=== PATIENT | female | born 1950 | race Caucasian/White ===

== ENCOUNTER 2016-10-08 08:29 | Day surgery (SDC) | payer MEDICARE, OTHER ==
[2016-10-08] MEDS ORDERED: LACTATED RINGERS 1,000 ML IV ONE (08:39)
[2016-10-08] MEDS ORDERED: fentaNYL 250 MCG/5 ML VIAL IVP ONE (10:32)
[2016-10-08] MEDS ORDERED: MIDAZOLAM 2 MG/2 ML VIAL IVP ONE (10:32)
== END 2016-10-08 08:30 | disposition home or self-care (01) ==
PROC: 0DJD8ZZ Inspection of Lower Intestinal Tract, Via Natural or Artificial Opening Endoscopic (ICD-10-PCS; principal; 2016-10-08 09:45)
DX: R10.31 Right lower quadrant pain (principal); K57.30 Diverticulosis of large intestine without perforation or abscess without bleeding; K64.8 Other hemorrhoids; Z88.2 Allergy status to sulfonamides; Z88.1 Allergy status to other antibiotic agents; Z79.82 Long term (current) use of aspirin; Z82.49 Family history of ischemic heart disease and other diseases of the circulatory system; Z87.891 Personal history of nicotine dependence; F32.9 Major depressive disorder, single episode, unspecified
CPT/HCPCS: 45378; J3010; J7120

== ENCOUNTER 2017-11-24 11:10 | Outpatient (CLI) | payer MEDICARE, OTHER | END 2017-11-24 11:11 | disposition home or self-care (01) | LOC: LAB.R 11:10 | PROVIDERS: ATTEND Physician Assistant Medical | DX: N30.00 Acute cystitis without hematuria (principal) | CPT/HCPCS: 87086 ==

== ENCOUNTER 2018-12-15 08:00 | Outpatient (CLI) | payer MEDICARE, OTHER | END 2018-12-15 23:59 | disposition home or self-care (01) | LOC: LAB.WCP 08:00 | PROVIDERS: ATTEND Physician Assistant Medical | DX: R31.9 Hematuria, unspecified (principal) | CPT/HCPCS: 87086 ==

== ENCOUNTER 2019-02-08 08:00 | Outpatient (CLI) | payer MEDICARE, OTHER ==
[2019-02-08 12:56] LABS: BASOPHILS # (AUTO) 0.1 10^3/uL (0.0-0.1); BASOPHILS % (AUTO) 0.7 %; EOSINOPHILS # (AUTO) 0.1 10^3/uL (0.0-0.7); EOSINOPHILS % (AUTO) 1.7 %; HGB - HEMOGLOBIN 12.8 g/dL (12.0-16.0); LYMPHOCYTES # (AUTO) 2.4 10^3/uL (1.5-3.5); LYMPHOCYTES % (AUTO) 30.7 %; MEAN CORPUSCULAR HEMOGLOBIN 29.9 pg (27.0-31.0); MEAN CORPUSCULAR HGB CONC 33.3 g/dL (32.0-36.0); MEAN CORPUSCULAR VOLUME 89.9 fL (81.0-99.0); MEAN PLATELET VOLUME 7.7 fL (7.9-10.8); MONOCYTES # (AUTO) 0.9 10^3/uL (0.0-1.0); MONOCYTES % (AUTO) 10.8 %; NEUTROPHILS # (AUTO) 4.4 10^3/uL (1.5-6.6); NEUTROPHILS % (AUTO) 56.1 %; PLT - PLATELET COUNT 304 10^3/uL (130-450); RED BLOOD COUNT 4.26 10^6/uL (4.20-5.40); RED CELL DISTRIBUTION WIDTH 14.2 % (12.0-15.0); WHITE BLOOD COUNT 7.9 x10^3/uL (4.8-10.8)
[2019-02-08 13:18] LABS: ALBUMIN 3.9 g/dL (3.2-5.5); ALBUMIN/GLOBULIN RATIO 1.4 (1.0-2.2); ALKALINE PHOSPHATASE 36 IU/L (42-121); ALT ALANINE AMINOTRANSFERASE 14 IU/L (10-60); AST ASPARTATE AMINOTRANSFERASE 17 IU/L (10-42); BILIRUBIN,TOTAL 0.5 mg/dL (0.2-1.0); BUN - BLOOD UREA NITROGEN 19 mg/dL (6-20); CALCIUM 9.8 mg/dL (8.5-10.3); CARBON DIOXIDE - CO2 29 mmol/L (21-32); CHLORIDE 101 mmol/L (101-111); CREATININE 0.7 mg/dL (0.4-1.0); GFR - MDRD 83 (>89); GLUCOSE 94 mg/dL (70-100); SODIUM 135 mmol/L (135-145); TOTAL PROTEIN 6.6 g/dL (6.7-8.2); VALPROIC ACID (DEPAKOTE) 52.1 ug/mL
== END 2019-02-08 08:01 | disposition home or self-care (01) ==
LOC: LAB.WCP 08:00
PROVIDERS: ATTEND Physician Assistant Medical
DX: K21.9 Gastro-esophageal reflux disease without esophagitis (principal); F32.3 Major depressive disorder, single episode, severe with psychotic features; E03.9 Hypothyroidism, unspecified
CPT/HCPCS: 36415; 80053; 80164; 84443; 85025

== ENCOUNTER 2019-07-12 08:00 | Outpatient (CLI) | payer MEDICARE, OTHER | END 2019-07-12 23:59 | disposition home or self-care (01) | LOC: LAB.R 08:00 | PROVIDERS: ATTEND Physician Assistant | DX: R35.0 Frequency of micturition (principal) | CPT/HCPCS: 81002; 87086; 87181 ==

== ENCOUNTER 2019-07-22 08:00 | Outpatient (CLI) | payer MEDICARE, OTHER ==
[2019-07-22 12:07] LABS: BILIRUBIN,URINE NEGATIVE (NEGATIVE); GLUCOSE, URINE (UA) NEGATIVE (NEGATIVE); KETONES,URINE (UA) TRACE mg/dL (NEGATIVE); LEUKOCYTE ESTERASE, URINE NEGATIVE (NEGATIVE); NITRITE,URINE NEGATIVE (NEGATIVE); OCCULT BLOOD,URINE SMALL (NEGATIVE); PROTEIN,URINE NEGATIVE (NEGATIVE); UROBILINOGEN,URINE 0.2 (NORMAL) E.U./dL (NORMAL)
[2019-07-22 12:09] LABS: CLARITY,URINE CLEAR (CLEAR)
[2019-07-22 12:22] LABS: BACTERIA,URINE Rare /HPF (None Seen); MUCUS,URINE Few Strands; RBC,URINE 0-5 /HPF (0-5); SQUAMOUS EPITHELIAL CELL,UR FEW Squamous (<= Few)
== END 2019-07-22 08:01 | disposition home or self-care (01) ==
LOC: LAB.WCP 08:00
PROVIDERS: ATTEND Physician Assistant Medical
DX: R35.0 Frequency of micturition (principal)
CPT/HCPCS: 81001; 81003; 87086

== ENCOUNTER 2019-08-12 08:37 | Outpatient (CLI) | payer MEDICARE, OTHER ==
--- NOTE | 2019-08-12 15:09 | Ultrasound Report ---
Reason: ABD PAIN, RUQ Procedure Date: 08/12/2019 Accession Number: [id number] / [id number] Procedure: US - Abdomen Limited CPT Code: Addended Final Report FULL RESULT: EXAM: ABDOMEN ULTRASOUND LIMITED, RUQ EXAM DATE: 08/12/2019 09:47 AM. CLINICAL HISTORY: ABD PAIN, RUQ. COMPARISON: None. TECHNIQUE: Real-time scanning was performed with static images obtained. FINDINGS: Liver: Coarse in echotexture. Surface nodularity. 11.5 cm in length. No focal intrahepatic mass. Main portal vein flow: Hepatopetal. Gallbladder: Normal. No stones, wall thickening, or sonographic Rodriguez's sign. Biliary System: CBD measures 4-5 mm. No intrahepatic or extrahepatic ductal dilatation. Right kidney: 8.7 cm in length. No hydronephrosis, calculus, or mass. Other: None. IMPRESSION: 1. No evidence of acute cholecystitis or cholelithiasis. 2. Heterogeneous echogenicity and coarsened echotexture of the liver with nodular surface consistent with underlying liver disease. RADIA ADDENDUM: 08/17/19 16:03 The appearance of the liver is consistent with liver disease secondary to cirrhosis.
== END 2019-08-12 08:38 | disposition home or self-care (01) ==
LOC: DI 08:37
PROVIDERS: ATTEND Physician Assistant Medical
DX: R10.11 Right upper quadrant pain (principal)
CPT/HCPCS: 76705

== ENCOUNTER 2019-11-16 11:50 | Outpatient (CLI) | payer MEDICARE, OTHER ==
[2019-11-16 19:15] LABS: ALBUMIN 3.5 g/dL (3.2-5.5); ALBUMIN/GLOBULIN RATIO 1.1 (1.0-2.2); BILIRUBIN,TOTAL 0.6 mg/dL (0.2-1.0); CALCIUM 10.1 mg/dL (8.5-10.3); CREATININE 0.7 mg/dL (0.4-1.0); TOTAL PROTEIN 6.6 g/dL (6.7-8.2)
[2019-11-17 12:19] LABS: HEPATITIS B SURFACE ANTIGEN NON-REACTIVE (NON-REACTIVE)
[2019-11-17 12:27] LABS: HEPATITIS C ANTIBODY NON-REACTIVE (NON-REACTIVE)
== END 2019-11-16 23:59 | disposition home or self-care (01) ==
LOC: LAB.WCP 11:50
PROVIDERS: ATTEND Physician Assistant Medical
DX: K74.60 Unspecified cirrhosis of liver (principal)
CPT/HCPCS: 36415; 80053; 86317; 86704; 86709; 86803; 87340

== ENCOUNTER 2019-11-24 12:52 | Outpatient (CLI) | payer MEDICARE, OTHER ==
--- NOTE | 2019-11-26 11:09 | Ultrasound Report ---
Reason: DYSPHAGIA Procedure Date: 11/24/2019 Accession Number: [id number] / [id number] Procedure: US - Head or Neck Soft Tissue CPT Code: Final Report FULL RESULT: EXAM: THYROID ULTRASOUND EXAM DATE: 11/24/2019 01:45 PM. CLINICAL HISTORY: Dysphagia. COMPARISON: None. TECHNIQUE: Real time sonographic imaging of the thyroid was performed by the engagement liaison. Multiple circulation sales representative static images were saved for review. FINDINGS: THYROID GLAND: Right Lobe: 3.9 x 1.1 x 1.7 cm, volume 3.8 cc. Normal background echotexture. Right Lobe Nodules: Solid hypoechoic lateral right mid thyroid nodule with vascularity and punctate echogenic foci potentially representing microcalcification. Increased through-transmission is present. Left Lobe: 3.8 x 1.1 x 1.4 cm, volume 3.0 cc. Normal background echotexture. Left Lobe Nodules: None. Isthmus: 0.2 cm AP. Isthmic Nodules: None. LYMPH NODES: No adenopathy demonstrated in the central or lateral compartment. OTHER: None. IMPRESSION: 1. A 1.0 cm lateral right mid thyroid nodule. Potential punctate microcalcification, raising the possibility of a high suspicion nodule. Recommend ultrasound-guided FNA. Management recommendations are based on 2015 [place] [employer] Management Guidelines for Adult Patients with Thyroid Nodules and Differentiated Thyroid Cancer. RADIA
== END 2019-11-24 12:53 | disposition home or self-care (01) ==
LOC: DI 12:52
PROVIDERS: ATTEND Physician Assistant Medical
DX: R13.10 Dysphagia, unspecified (principal); E04.1 Nontoxic single thyroid nodule
CPT/HCPCS: 76536

== ENCOUNTER 2020-04-06 08:37 | Outpatient (CLI) | payer MEDICARE, OTHER ==
--- NOTE | 2020-04-07 09:14 | Mammography Report ---
BILATERAL DIGITAL SCREENING MAMMOGRAM 3D/2D: 04/06/2020 CLINICAL: Routine screening. Comparison is made to exams dated: 04/04/2015 mammogram, 04/14/2014 mammogram, 05/15/2012 mammogram, and 05/21/2011 mammogram - [facility]. There are scattered fibroglandular elements in both breasts. No significant masses, calcifications, or other findings are seen in either breast. There has been no significant interval change. IMPRESSION: NEGATIVE There is no mammographic evidence of malignancy. A 1 year screening mammogram is recommended. This exam was interpreted at Station ID: [id number]. NOTE: For mammograms, a report in lay terms will be sent to the patient. Approximately 15% of breast malignancies will not be visualized mammographically. In the management of a palpable breast mass, a negative mammogram must not discourage biopsy of a clinically suspicious lesion. Electronically Signed By: Jakob Gupta M.D. aty/penrad:04/06/2020 10:00:46 ACR BI-RADS Category 1: Negative 3341F PARENCHYMAL PATTERN: (A) - The breast(s) demonstrate(s) scattered fibroglandular densities. BI-RADS CATEGORY: (1) - 1 RECOMMENDATION: (ANNUAL) - Recommend routine annual screening mammography. [id number] 1 year screening LATERALITY: (B)
== END 2020-04-06 08:38 | disposition home or self-care (01) ==
LOC: DI 08:37
DX: Z12.31 Encounter for screening mammogram for malignant neoplasm of breast (principal)
CPT/HCPCS: 77063; 77067

== ENCOUNTER 2020-04-14 11:47 | Outpatient (CLI) | payer MEDICARE, OTHER ==
[2020-04-14] MEDS ORDERED: BUFFERED LIDOCAINE 10 ML SYRINGE ONE (12:13)
[2020-04-14] MEDS ORDERED: BUFFERED LIDOCAINE 10 ML SYRINGE IU ONE (14:13)
--- NOTE | 2020-04-14 15:11 | Ultrasound Report ---
PROCEDURE: FNA Bx w/US Gnd 1st les INDICATIONS: RT THYROID NODULE TECHNIQUE: The indications, alternatives, benefits, risks, and complications of the procedure were explained to the patient. Written informed consent was obtained and placed in the chart. The area of interest wa s examined sonographically and a site was chosen for ultrasound guided percutaneous sampling. The sk in was prepared and draped in the usual fashion, and anesthetized with 1% lidocaine infiltrated from the skin down to the lesion. Multiple passes were then performed, with contents emptied into an appr [facility] pathology specimen container. A bandage was applied to the area of access at completion of t he study. COMPARISON: None. FINDINGS: Location(s) of lesion(s) sampled: Mid right lobe [place]: 25 gauge hypodermic needles. Number of passes: 6 Medications: 1% lidocaine for local anaesthesia. Complications: None. IMPRESSION: Successful ultrasound-guided mid right thyroid lobe fine needle aspiration, with cytology results moustapha mnuoz. Reviewed by: Rose Bonner MD on 04/14/2020 3:09 PM PDT Approved by: Rose Bonner MD on 04/14/2020 3:09 PM PDT Station ID: [id number]
== END 2020-04-14 11:48 | disposition home or self-care (01) ==
LOC: DI 11:47
PROVIDERS: ATTEND Physician Assistant Medical
DX: E04.1 Nontoxic single thyroid nodule (principal)
CPT/HCPCS: 10005

== ENCOUNTER 2020-07-20 08:00 | Outpatient (CLI) | payer MEDICARE, OTHER ==
[2020-07-20 19:04] LABS: BASOPHILS # (AUTO) 0.1 10^3/uL (0.0-0.1); EOSINOPHILS # (AUTO) 0.1 10^3/uL (0.0-0.7); EOSINOPHILS % (AUTO) 1.4 %; HGB - HEMOGLOBIN 12.3 g/dL (12.0-16.0); LYMPHOCYTES # (AUTO) 1.6 10^3/uL (1.5-3.5); LYMPHOCYTES % (AUTO) 27.7 %; MEAN CORPUSCULAR HEMOGLOBIN 29.8 pg (27.0-31.0); MEAN CORPUSCULAR HGB CONC 31.5 g/dL (32.0-36.0); MEAN CORPUSCULAR VOLUME 94.7 fL (81.0-99.0); MEAN PLATELET VOLUME 9.6 fL (7.9-10.8); MONOCYTES # (AUTO) 0.5 10^3/uL (0.0-1.0); MONOCYTES % (AUTO) 9.2 %; NEUTROPHILS # (AUTO) 3.5 10^3/uL (1.5-6.6); NEUTROPHILS % (AUTO) 60.2 %; PLT - PLATELET COUNT 273 10^3/uL (130-450); RED BLOOD COUNT 4.13 10^6/uL (4.20-5.40); RED CELL DISTRIBUTION WIDTH 13.4 % (12.0-15.0); WHITE BLOOD COUNT 5.7 x10^3/uL (4.8-10.8)
[2020-07-20 19:20] LABS: BILIRUBIN,URINE NEGATIVE (NEGATIVE); GLUCOSE, URINE (UA) NEGATIVE (NEGATIVE); KETONES,URINE (UA) NEGATIVE (NEGATIVE); LEUKOCYTE ESTERASE, URINE SMALL (NEGATIVE); NITRITE,URINE POSITIVE (NEGATIVE); OCCULT BLOOD,URINE MODERATE (NEGATIVE); PH,URINE 6.5 PH (5.0-7.5); PROTEIN,URINE NEGATIVE (NEGATIVE); UROBILINOGEN,URINE 0.2 (NORMAL) E.U./dL (NORMAL)
[2020-07-20 19:26] LABS: ALBUMIN 3.7 g/dL (3.2-5.5); ALBUMIN/GLOBULIN RATIO 1.3 (1.0-2.2); BILIRUBIN,TOTAL 0.5 mg/dL (0.2-1.0); CALCIUM 10.5 mg/dL (8.5-10.3); CREATININE 0.7 mg/dL (0.4-1.0); TOTAL PROTEIN 6.6 g/dL (6.7-8.2)
[2020-07-20 19:34] LABS: CLARITY,URINE HAZY (CLEAR)
[2020-07-20 19:35] LABS: BACTERIA,URINE Many /HPF (None Seen); SQUAMOUS EPITHELIAL CELL,UR FEW Squamous (<= Few)
== END 2020-07-20 08:01 | disposition home or self-care (01) ==
LOC: LAB.WCP 08:00
PROVIDERS: ATTEND Physician Assistant Medical
DX: K74.60 Unspecified cirrhosis of liver (principal); D72.829 Elevated white blood cell count, unspecified; R35.0 Frequency of micturition
CPT/HCPCS: 36415; 80053; 81001; 85025; 87086; 87181

== ENCOUNTER 2021-01-23 08:00 | Outpatient (CLI) | payer MEDICARE, OTHER ==
[2021-01-23 18:40] LABS: BILIRUBIN,URINE NEGATIVE (NEGATIVE); GLUCOSE, URINE (UA) NEGATIVE (NEGATIVE); KETONES,URINE (UA) NEGATIVE (NEGATIVE); LEUKOCYTE ESTERASE, URINE NEGATIVE (NEGATIVE); NITRITE,URINE NEGATIVE (NEGATIVE); OCCULT BLOOD,URINE MODERATE (NEGATIVE); PROTEIN,URINE NEGATIVE (NEGATIVE); UROBILINOGEN,URINE 0.2 (NORMAL) E.U./dL (NORMAL)
[2021-01-23 18:46] LABS: BACTERIA,URINE None Seen /HPF (None Seen); CLARITY,URINE CLEAR (CLEAR); SQUAMOUS EPITHELIAL CELL,UR FEW Squamous (<= Few); WBC,URINE 0-3 /HPF (0-5)
== END 2021-01-23 08:01 | disposition home or self-care (01) ==
LOC: LAB.R 08:00
PROVIDERS: ATTEND Physician Assistant Medical
DX: R31.9 Hematuria, unspecified (principal)
CPT/HCPCS: 81001; 87086

== ENCOUNTER 2021-04-27 13:04 | Outpatient (CLI) | payer MEDICARE, OTHER ==
--- NOTE | 2021-04-27 15:55 | XRAY Report ---
PROCEDURE: Hip w/Pelvis 2-3V RT INDICATIONS: HIP PAIN, RIGHT TECHNIQUE: AP pelvis with lateral view(s) of the bilateral hip(s). COMPARISON: None. FINDINGS: No fracture. Lumbar spondylosis and facet arthropathy. Moderate bilateral hip osteoarthritis. IMPRESSION: Mild bilateral hip. If the patient's pain or other symptoms persist, consider further ev aluation with MRI. Reviewed by: Shahzad Jessica MD on 04/27/2021 3:54 PM PDT Approved by: Shahzad Jessica MD on 04/27/2021 3:54 PM PDT Station ID: [id number]
== END 2021-04-27 13:05 | disposition home or self-care (01) ==
LOC: DI.N 13:04
PROVIDERS: ATTEND Physician Assistant Medical
DX: M16.0 Bilateral primary osteoarthritis of hip (principal); M47.816 Spondylosis without myelopathy or radiculopathy, lumbar region

== ENCOUNTER 2021-12-25 08:00 | Outpatient (CLI) | payer MEDICARE, OTHER | END 2021-12-25 23:59 | LOC: LAB.R 08:00 | PROVIDERS: ATTEND Physician Assistant Medical | DX: N39.0 Urinary tract infection, site not specified (principal) | CPT/HCPCS: 87086; 87181 ==

== ENCOUNTER 2022-01-03 16:58 | Outpatient (CLI) | payer MEDICARE, OTHER | END 2022-01-03 16:59 | disposition home or self-care (01) | LOC: DI.N 16:58 | PROVIDERS: ATTEND Physician Assistant Medical | DX: Z53.9 Procedure and treatment not carried out, unspecified reason (principal) ==

== ENCOUNTER 2022-03-20 08:00 | Outpatient (CLI) | payer MEDICARE, OTHER | END 2022-03-20 23:59 | disposition home or self-care (01) | LOC: LAB.N 08:00 | PROVIDERS: ATTEND Physician Assistant Medical | DX: N39.0 Urinary tract infection, site not specified (principal) | CPT/HCPCS: 87077; 87086; 87181 ==

== ENCOUNTER 2022-04-06 08:00 | Outpatient (CLI) | payer MEDICARE, OTHER | END 2022-04-06 23:59 | disposition home or self-care (01) | LOC: LAB.N 08:00 | PROVIDERS: ATTEND Family Medicine | DX: R30.0 Dysuria (principal) | CPT/HCPCS: 87086 ==

== ENCOUNTER 2022-07-02 08:00 | Outpatient (CLI) | payer MEDICARE, OTHER | END 2022-07-02 23:59 | disposition home or self-care (01) | LOC: LAB.R 08:00 | PROVIDERS: ATTEND Family Medicine | DX: R30.0 Dysuria (principal) | CPT/HCPCS: 87086 ==

== ENCOUNTER 2022-12-19 08:45 | Outpatient (CLI) | payer MEDICARE, OTHER | END 2022-12-19 09:00 | disposition home or self-care (01) | LOC: LAB.N 08:45 | PROVIDERS: ATTEND Nurse Practitioner | DX: R31.9 Hematuria, unspecified (principal) | CPT/HCPCS: 87086; 87181 ==

== ENCOUNTER 2022-12-21 11:16 | Emergency (ER) | payer MEDICARE, OTHER ==
--- NOTE | 2022-12-21 12:18 | ED Physician Documentation ---
History of Present Illness - Stated complaint Stated Complaint: RT LEG PX - Chief complaint Chief Complaint: Ext Problem - History obtained from History obtained from: Patient, Family - Additonal information Additional information: This is a 72-year-old woman who presents for the evaluation of groin and leg pain. Its been going on for maybe 3 weeks to 2 months. It is a little hard for her to say. She did fall and there but she is not clear if the fall was the cause of the pain but she does note that she had bruising kind of over the right hip and back. Pain is generally worsening. She feels like it is focused in the groin on the right and radiates both towards the pubic symphysis and around to the back. She denies weakness, numbness, tingling, saddle anesthesia, incontinence, fevers with any of this. She feels like it has made it hard to walk. She declined pain medication on initial evaluation. PD PAST MEDICAL HISTORY - Past Medical History Past Medical History: Yes Cardiovascular: None Respiratory: None Endocrine/Autoimmune: None GI: Diverticulitis, Other : None, Other HEENT: Chronic vision loss Psych: Depression Musculoskeletal: None Derm: None - Past Surgical History Past Surgical History: Yes General: Colonoscopy Ortho: Other /[employer]: Tubal ligation, Other - Present Medications Home Medications: Ambulatory Orders Medication Instructions Recorded Confirmed Divalproex Sodium [Depakote] 250 mg PO DAILY 10/08/16 12/21/22 Venlafaxine HCl [Effexor Xr] 150 mg PO DAILY 10/08/16 12/21/22 ARIPiprazole [Abilify] 5 mg PO DAILY 12/21/22 12/21/22 Ciprofloxacin HCl [Cipro] 500 mg PO BID 12/21/22 12/21/22 Dextroamphetamine/Amphetamine 5 mg PO DAILY 12/21/22 12/21/22 [Dextroamp-Amphetamine 5 mg Tab] Estradiol [Vagifem] 10 mcg VG Q7D 12/21/22 12/21/22 Venlafaxine HCl 75 mg PO DAILY 12/21/22 12/21/22 - Allergies Allergies/Adverse Reactions: Allergies Allergy/AdvReac Type Severity Reaction Status Date / Time bupropion [From Wellbutrin] Allergy Unknown Verified 12/21/22 11:25 citalopram [From Celexa] Allergy Unknown Verified 12/21/22 11:25 escitalopram [From Lexapro] Allergy Unknown Verified 12/21/22 11:25 estrogens, conjugated Allergy Unknown Verified 12/21/22 11:25 [From Premarin] quetiapine [From Seroquel] Allergy Unknown Verified 12/21/22 11:25 Sulfa (Sulfonamide Allergy Itching Verified 12/21/22 11:25 Antibiotics) tetracycline [Tetracycline] Allergy Respiratory Verified 12/21/22 11:25 - Social History Does the pt smoke?: No Smoking Status: Never smoker Does the pt drink ETOH?: Yes Does the pt have substance abuse?: No - POLST Patient has POLST: No PD ED PE NORMAL - Vitals Vital signs reviewed: Yes - General General: Alert and oriented X 3, No acute distress - Abdomen Abdomen: Other (She has a slight suprapubic tenderness and more tenderness over the pubic symphysis. No real tenderness in the inguinal ligament.) - Back Back: Other (She has some dextroscoliosis. No tenderness of the spine or paralumbar areas.) - Extremities Extremities: Other (I am unable to elicit any pain with flexion or extension or internal/external rotation of the right hip. Negative straight leg raise. The patient has equal and normal Achilles and patellar reflexes bilaterally. Normal sensation in all areas of the legs. Patient denies saddle anesthesia. Normal ) - Neuro Neuro: Alert and oriented X 3, Normal speech Results - Vitals Vitals: Vital Signs - 24 hr 12/21/22 12/21/22 11:21 14:36 Temperature 36.4 C L Heart Rate 93 77 Respiratory 16 16 Rate Blood Pressure 124/78 139/80 H O2 Saturation 100 99 Oxygen O2 Source Room air - Labs Labs: Laboratory Tests 12/21/22 12/21/22 12:27 12:27 WBC 6.5 RBC 4.08 L Hgb 12.3 Hct 38.3 MCV 93.9 MCH 30.1 MCHC 32.1 RDW 13.3 Plt Count 253 MPV 9.1 Neut # (Auto) 4.1 Lymph # (Auto) 1.6 Hart # (Auto) 0.7 Eos # (Auto) 0.1 Baso # (Auto) 0.1 Absolute Nucleated RBC 0.00 Nucleated RBC % 0.0 Sodium 136 Potassium 4.4 Chloride 102 Carbon Dioxide 28 Anion Gap 6.0 BUN 13 Creatinine 0.7 Estimated GFR (MDRD) 82 L Glucose 82 Calcium 10.0 - Rads (name of study) CT A/P, L Spine, R Hip XR, CT Chest Relevant Findings:: Final report received, EMP independent interpretation of test PD Medical Decision Making - ED course ED course: This is a 72-year-old woman who presents with right hip pain. It does not really fit into an easy box as far as is not really reproducible. Certainly could be referred pain from elsewhere, even pelvic pathology. As such both x- rays and a CT of the lumbar spine and abdomen pelvis were initially done. The x-rays showed some osteoarthritis, it was similar to how bad it was 2 years ago and PA Young X-rated. Patient did not recall having that x-rayed or why she needed it x-rayed at the time so unclear if it is an exacerbation of a more chronic issue. CT of the lumbar spine did show multilevel disease including spinal stenosis and severe right L3-L4 neuroforaminal narrowing, and that certainly could be contributing as well. CT of the abdomen pelvis showed some diverticulosis, but no acute intra-abdominal abnormality, but there was a partially right lung mass visualized lesion in the right lung and she went back to CT which unfortunately showed a large with mediastinal adenopathy concerning for primary lung cancer. We discussed this with the patient and her and she voices understanding. She was a remote smoker but quit over 4 to 50 years ago. I wrote an email to her PA to expedite follow-up as follows: " Dear Marilin, I am seeing your patient Jyothi Calvo, date of 50. She is a [place] lady who came in today for hip pain. I will let you look at my note, but long story short she has severe spinal disease and hip osteoarthritis but we found, possibly accidentally, a large right lung mass consistent with primary lung cancer. She probably needs referrals to orthopedics and spine but more importantly she will need referral for bronchoscopy and PET/CT for work-up of what is likely primary lung cancer." Departure - Departure Disposition: 01 Home, Self Care Clinical Impression: Lumbar radiculopathy Hip osteoarthritis Qualifiers: Osteoarthritis type: primary Laterality: right Qualified Code(s): M16.11 - Unilateral primary osteoarthritis, right hip Spinal stenosis Qualifiers: Spinal region: lumbar Neurogenic claudication status: without neurogenic claudication Qualified Code(s): M48.061 - Spinal stenosis, lumbar region without neurogenic claudication Lung cancer Qualifiers: Laterality: right Lung location: unspecified part of lung Qualified Code(s): C34.91 - Malignant neoplasm of unspecified part of right bronchus or lung Condition: Good Record reviewed to determine appropriate education?: Yes Instructions: ED Sciatica Comments: You can take Tylenol and/or NSAIDs such as Aleve or ibuprofen for the hip pain. I did email Marilin about everything that is going on, but Most importantly the new lung cancer. You should call our office on Friday to close the loop, he will need bronchoscopy for primary tissue diagnosis of likely lung cancer and PET/CT.
[2022-12-21 12:31] LABS: BASOPHILS # (AUTO) 0.1 10^3/uL (0.0-0.1); BASOPHILS % (AUTO) 0.8 %; EOSINOPHILS # (AUTO) 0.1 10^3/uL (0.0-0.7); EOSINOPHILS % (AUTO) 1.5 %; HCT - HEMATOCRIT 38.3 % (37.0-47.0); HGB - HEMOGLOBIN 12.3 g/dL (12.0-16.0); LYMPHOCYTES # (AUTO) 1.6 10^3/uL (1.5-3.5); LYMPHOCYTES % (AUTO) 24.5 %; MEAN CORPUSCULAR HEMOGLOBIN 30.1 pg (27.0-31.0); MEAN CORPUSCULAR HGB CONC 32.1 g/dL (32.0-36.0); MEAN CORPUSCULAR VOLUME 93.9 fL (81.0-99.0); MEAN PLATELET VOLUME 9.1 fL (7.9-10.8); MONOCYTES # (AUTO) 0.7 10^3/uL (0.0-1.0); MONOCYTES % (AUTO) 10.3 %; NEUTROPHILS # (AUTO) 4.1 10^3/uL (1.5-6.6); NEUTROPHILS % (AUTO) 62.4 %; PLT - PLATELET COUNT 253 10^3/uL (130-450); RED BLOOD COUNT 4.08 10^6/uL (4.20-5.40); RED CELL DISTRIBUTION WIDTH 13.3 % (12.0-15.0); WHITE BLOOD COUNT 6.5 x10^3/uL (4.8-10.8)
[2022-12-21 12:43] LABS: CREATININE 0.7 mg/dL (0.4-1.0); POTASSIUM 4.4 mmol/L (3.5-5.0)
[2022-12-21] MEDS ORDERED: iohexoL-300 100 ML VIAL ONE (12:53)
--- NOTE | 2022-12-21 12:55 | XRAY Report ---
PROCEDURE: Hip w/Pelvis 2-3V RT INDICATIONS: hip pain TECHNIQUE: AP pelvis with lateral view of the right hip. COMPARISON: Right hip radiographs 04/27/2021. FINDINGS: Bones: No acute fractures or dislocations. Pelvic ring appears intact. No suspicious bony lesions. Mild degenerative changes are seen in the hips bilaterally. Soft tissues: The visualized bowel gas pattern is normal. No suspicious soft tissue calcifications. IMPRESSION: Mild bilateral hip osteoarthrosis. No acute osseous abnormality. If there is clinical con cern or persistent symptoms, additional imaging such as repeat radiographs or advanced imaging (e.g. CT, MRI) may be helpful for further evaluation. Reviewed by: Bigg Jacinto MD on 12/21/2022 12:54 PM PDT Approved by: Bigg Jacinto MD on 12/21/2022 12:54 PM PDT Station ID: [id number]
[2022-12-21] MEDS ORDERED: iohexoL-300 100 ML VIAL IVP ONE (13:17)
--- NOTE | 2022-12-21 14:03 | CT Report ---
PROCEDURE: ABDOMEN/PELVIS W INDICATIONS: pelvic pain, iv only CONTRAST: 100ml omni 300 TECHNIQUE: After the administration of intravenous contrast, 5 mm thick sections acquired from the diaphragms to the symphysis. 5 mm thick coronal and sagittal reformats were acquired. For radiation dose reducti on, the following was used: automated exposure control, adjustment of mA and/or kV according to dimas ent size. COMPARISON: None. FINDINGS: Image quality: Excellent. ABDOMEN: Lung bases: Hypoattenuating lesion is seen in the right hilar region that is of uncertain etiology an d is incompletely imaged. Heart size is normal. Solid organs: Liver and spleen are normal in size and enhancement. Gallbladder is unremarkable. Bi liary system is non dilated. Pancreas enhances normally. No adrenal nodules. Kidneys demonstrate n ormal size and enhancement, without hydronephrosis. Peritoneum and bowel: Moderate stool is seen in the colon. Sigmoid diverticula are seen without defin ite signs of acute diverticulitis. Small bowel loops are unremarkable. Appendix appears normal. No fr ee fluid or air. Nodes and vessels: No retroperitoneal or mesenteric adenopathy by size criteria. Aorta and inferior vena cava are normal in size. Miscellaneous: No ventral hernias. PELVIS: Genitourinary: Bladder wall thickness is normal. Miscellaneous: No inguinal hernias or adenopathy. Bones: No suspicious bony lesions. No vertebral body compression fractures. Multilevel degenerativ e changes are seen in the spine. IMPRESSION: 1.Sigmoid colonic diverticulosis without definite pericolonic fat stranding to suggest acute divertic ulitis. 2.No acute abnormality is seen in the abdomen or pelvis. 3.Hypoattenuating lesion in the right hilum is partially imaged and of uncertain etiology, but hilar lymphadenopathy is not excluded. Recommend CT of the chest for further evaluation. Reviewed by: Bigg Jacinto MD on 12/21/2022 2:02 PM PDT Approved by: Bigg Jacinto MD on 12/21/2022 2:02 PM PDT Station ID: [id number]
--- NOTE | 2022-12-21 14:09 | CT Report ---
PROCEDURE: LUMBAR SPINE WO INDICATIONS: pelvic/back pain TECHNIQUE: Noncontrast 3 mm thick sections acquired from the T12 level to the sacrum. Sagittal and coronal refo rmats were constructed. For radiation dose reduction, the following was used: automated exposure co ntrol, adjustment of mA and/or kV according to patient size. COMPARISON: Lumbar spine radiographs 01/03/2022. FINDINGS: Image quality: Excellent. Bones: There is grade 1 anterolisthesis of L3 on L4 measuring 4 mm. Mild levoconvex curvature of the mid lumbar spine centered at L3. No acute vertebral body compression fractures. No suspicious lytic or blastic bony lesions. No pars defects. Multilevel degenerative disc disease and facet hypertrophy is seen throughout the lumbar spine. Findi ngs are overall worst at the L3-4 disc space level where there is moderate to severe narrowing of the central spinal canal as well as moderate to severe right and moderate left neural foraminal narrowin g. At least moderate spinal canal narrowing is seen at the L2-3 level. Additional multifocal mild to moderate neural foraminal narrowing. Soft tissues: No retroperitoneal masses or hematomas. Visualized aorta is normal in caliber. IMPRESSION: 1.No acute vertebral compression fracture. 2.Multilevel degenerative disc disease and facet hypertrophy and degenerative spondylolisthesis as we ll as levoconvex curvature of the lumbar spine. 3.Moderate to severe narrowing of the spinal canal is seen at the L3-4 disc space level. There is mod erate narrowing of the spinal canal the L2-3 level. 4.Neural foraminal narrowing is most notable and moderate to severe at the L3-4 level on the right. Reviewed by: Bigg Jacinto MD on 12/21/2022 2:07 PM PDT Approved by: Bigg Jacinto MD on 12/21/2022 2:07 PM PDT Station ID: [id number]
[2022-12-21 14:37] VITALS: BP 139/80
--- NOTE | 2022-12-21 15:27 | CT Report ---
PROCEDURE: CHEST WO INDICATIONS: abd abd ct, lung mass TECHNIQUE: Noncontrast 1mm axial images were acquired from the pulmonary apices to the posterior costophrenic an gles. Axial 5 mm soft tissue kernel reconstructions were performed as well as 8 mm axial MIP and cor onal and sagittal 5 mm reformations. For radiation dose reduction, the following was used: automate d exposure control, adjustment of mA and/or kV according to patient size. COMPARISON: Correlation is made with the accompanying CT examinations FINDINGS: Image quality: Excellent. Lungs and pleura: Within the superior segment of the right lower lobe, there are overlapping pulmona ry nodules seen. This process includes the right perihilar region and extends 5 cm craniocaudal. With in the right lower lobe, there is an additional pulmonary nodule seen, as on series 4 image 132 measu ring 7 mm. Mediastinum: Enlarged mediastinal lymph nodes are seen, including a precarinal lymph node that measu res 2.1 x 2.1 cm. Heart size is normal. No pericardial effusion. Moderate coronary artery calcification is seen. Thora cic aorta and central pulmonary arteries are normal in size. Esophagus is normal in caliber. No hia michael hernia. Bones and chest wall: Lower cervical spine fixation hardware can be seen. No suspicious bony lesions. No vertebral body compression fractures. Age-appropriate degenerative ch anges are seen. No axillary or supraclavicular adenopathy by size criteria. The thyroid is normal in size and there are no incidental findings. Abdomen: The pelvis can be seen within the renal collecting systems. Visualized upper abdominal nomi d organs and bowel loops appear normal in the absence of contrast. IMPRESSION: There is a 5 cm right perihilar mass primarily involving the right lower lobe. Enlarged mediastinal l ymph nodes are seen. There is an additional 7 mm right lower lobe nodule seen. Primary lung cancer is suspected, although differential diagnosis includes metastatic disease. Please consider a dedicated PET CT for further evaluation. If clinically appropriate, bronchoscopic biopsy of the primary mass or the precarinal lymph node may be possible. Additional findings: Lower cervical spine fixation hardware Reviewed by: Devin Hansen MD on 12/21/2022 2:25 PM AKRILEY Approved by: Devin Hansen MD on 12/21/2022 2:25 PM AKRILEY Station ID: [id number]
== END 2022-12-21 16:29 | disposition home or self-care (01) ==
LOC: ED 11:16
DX: M54.16 Radiculopathy, lumbar region (principal); M16.11 Unilateral primary osteoarthritis, right hip; M48.061 Spinal stenosis, lumbar region without neurogenic claudication; C34.91 Malignant neoplasm of unspecified part of right bronchus or lung
CPT/HCPCS: 36415; 71250; 72131; 73502; 74177; 80048; 85025; 99284; Q9967

== ENCOUNTER 2023-01-02 12:15 | Outpatient (CLI) | payer MEDICARE, OTHER ==
[2023-01-02 18:13] LABS: BILIRUBIN,URINE NEGATIVE (NEGATIVE); GLUCOSE, URINE (UA) NEGATIVE (NEGATIVE); KETONES,URINE (UA) TRACE mg/dL (NEGATIVE); LEUKOCYTE ESTERASE, URINE TRACE (NEGATIVE); NITRITE,URINE NEGATIVE (NEGATIVE); OCCULT BLOOD,URINE LARGE (NEGATIVE); PROTEIN,URINE NEGATIVE (NEGATIVE); UROBILINOGEN,URINE 0.2 (NORMAL) E.U./dL (NORMAL)
[2023-01-02 18:16] LABS: CLARITY,URINE HAZY (CLEAR)
[2023-01-02 18:33] LABS: BACTERIA,URINE Few /HPF (None Seen); SQUAMOUS EPITHELIAL CELL,UR FEW Squamous (<= Few)
== END 2023-01-02 12:16 | disposition home or self-care (01) ==
LOC: LAB.N 12:15
PROVIDERS: ATTEND Physician Assistant Medical
DX: N39.0 Urinary tract infection, site not specified (principal)
CPT/HCPCS: 81001; 87086

== ENCOUNTER 2023-01-08 07:43 | Outpatient (CLI) | payer MEDICARE, OTHER ==
[2023-01-08 08:30] LABS: INR 0.9 (0.8-1.2); PT - PROTHROMBIN TIME 10.5 secs (9.9-12.6)
[2023-01-08 08:37] LABS: PARTIAL THROMBOPLASTIN TIME 24.4 secs (24.9-33.3)
[2023-01-08] MEDS ORDERED: ONDANSETRON 4 MG/2 ML VIAL ONE (08:46)
[2023-01-08] MEDS ORDERED: MIDAZOLAM 2 MG/2 ML VIAL ONE (08:47)
[2023-01-08] MEDS ORDERED: fentaNYL 100 MCG/2 ML VIAL ONE (08:47)
[2023-01-08] MEDS ORDERED: LIDOCAINE-MPF 1% 5 ML VIAL ONE (09:10)
[2023-01-08] MEDS ORDERED: fentaNYL 100 MCG/2 ML VIAL IVP ONE (09:40)
[2023-01-08] MEDS ORDERED: ONDANSETRON 4 MG/2 ML VIAL IVP STA (09:40)
[2023-01-08] MEDS ORDERED: MIDAZOLAM 2 MG/2 ML VIAL IVP ONE (09:40)
[2023-01-08] MEDS ORDERED: LACTATED RINGERS 1,000 ML IV ONE (10:19)
--- NOTE | 2023-01-08 10:30 | CT Report ---
PROCEDURE: RT LUNG BX PERC Sedation analgesia for 30 minutes. Please see nurses notes. INDICATIONS: RLL LUNG MASS TECHNIQUE: The indications, alternatives, benefits, risks, and possible complications of the procedure were comm unicated to the patient. Informed written consent from the patient was obtained and placed in the art. Continuous EKG and hemodynamic monitoring was started by trained personnel. For radiation dose reduction, the following was used: automated exposure control, adjustment of mA and/or kV according to patient size. The patient was brought to the CT suite and certified registered dental assistant spiral CT imaging was performed with localization g rid. The appropriate site for percutaneous access to the biopsy target was marked, was prepped and d raped sterilely, and was infused with local anaesthesia. Under CT guidance, a core biopsy trocar and needle set was advanced to the biopsy target, and specimen(s) were obtained. The trocar and needle were then removed, and the patient was sent for post-procedure monitoring. COMPARISON: CT 12/21/2022 FINDINGS: Biopsy site: Right lower lobe Needle: 18 gauge biopsy needle with introducer trocar. Number of passes: 4 Medications: 1% lidocaine for local anaesthesia. IV Fentanyl and Versed for conscious sedation for 30 minutes (see nursing record). Complications: None. IMPRESSION: Successful CT-guided biopsy of the right lower lobe mass. Reviewed by: Booker Madrid on 01/08/2023 10:28 AM PDT Approved by: Booker Madrid on 01/08/2023 10:28 AM PDT Station ID: [id number]
--- NOTE | 2023-01-08 11:08 | XRAY Report ---
PROCEDURE: Post Thoracentesis 1V CXR INDICATIONS: POST LUNG BIOSPY TECHNIQUE: One view of the chest was acquired. COMPARISON: None. FINDINGS: Surgical changes and devices: None. Lungs and pleura: Right hilar mass is unchanged. Mediastinum: Mediastinal adenopathy. Bones and chest wall: No suspicious bony lesions. Overlying soft tissues appear unremarkable. IMPRESSION: No pneumothorax. Reviewed by: Booker Madrid on 01/08/2023 11:07 AM PDT Approved by: Booker Madrid on 01/08/2023 11:07 AM PDT Station ID: [id number]
[2023-01-08 12:13] VITALS: BP 133/71
--- NOTE | 2023-01-08 12:25 | XRAY Report ---
PROCEDURE: Post Thoracentesis 1V CXR INDICATIONS: 2 HR POST LUNG BIOSPY TECHNIQUE: One view of the chest was acquired. COMPARISON: None. FINDINGS: Surgical changes and devices: None. Lungs and pleura: Stable right lower lobe mass. No pneumothorax. Mediastinum: Stable mediastinal adenopathy. Bones and chest wall: No suspicious bony lesions. Overlying soft tissues appear unremarkable. IMPRESSION: No pneumothorax. Reviewed by: Booker Madrid on 01/08/2023 12:23 PM PDT Approved by: Booker Madrid on 01/08/2023 12:23 PM PDT Station ID: [id number]
== END 2023-01-08 07:44 | disposition home or self-care (01) ==
LOC: DI 07:43
PROVIDERS: ATTEND Physician Assistant Medical
DX: C34.31 Malignant neoplasm of lower lobe, right bronchus or lung (principal)
CPT/HCPCS: 32408; 36415; 85610; 85730; 88305; 88341; 88342; 88344; 88360; J7120

== ENCOUNTER 2023-01-15 09:38 | Outpatient (CLI) | payer MEDICARE, OTHER ==
--- NOTE | 2023-01-15 11:30 | XRAY Report ---
PROCEDURE: Femur 2V RT INDICATIONS: LEG PAIN TECHNIQUE: 2 views of the femur were acquired. COMPARISON: None. FINDINGS: Bones: No fractures or dislocations. There is mild right hip joint space narrowing. No suspicious [place] lesions. Soft tissues: No suspicious soft tissue calcifications or masses. IMPRESSION: Mild degenerative change. Reviewed by: Tova Bishop MD on 01/15/2023 11:28 AM PDT Approved by: Tova Bishop MD on 01/15/2023 11:28 AM PDT Station ID: [id number]
== END 2023-01-15 09:39 | disposition home or self-care (01) ==
LOC: DI 09:38
PROVIDERS: ATTEND Physician Assistant Medical
DX: M16.11 Unilateral primary osteoarthritis, right hip (principal)

== ENCOUNTER 2023-02-05 10:52 | Day surgery (SDC) | payer MEDICARE, OTHER ==
[2023-02-05] MEDS ORDERED: LACTATED RINGERS 1,000 ML IV ONE ×2 (11:32→13:09)
--- NOTE | 2023-02-05 11:48 | ANESTHESIA ---
Pre-Anesthesia VS, & Labs - Diagnosis lung CA - Procedure port a cath placement Vital Signs: Temp Pulse Resp BP Pulse Ox O2 Flow Rate 36.4 C L 92 18 129/78 96 02/05/23 11:14 02/05/23 11:14 02/05/23 11:14 02/05/23 11:14 02/05/23 11:14 Height: 5 ft 3 in Weight (kg): 60.9 kg Body Mass Index: 23.8 BMI Classification: Normal - NPO >8 hours - Is Patient ?: No - Lab Results Lab results reviewed: Yes Home Medications and Allergies Home Medications: Ambulatory Orders Acetaminophen [Tylenol] 650 mg PO Q6H PRN 02/03/23 Cholecalciferol [Vitamin D3] 7,000 unit PO DAILY 02/03/23 Divalproex Sodium [Depakote] 250 mg PO DAILY 10/08/16 Venlafaxine HCl [Effexor Xr] 150 mg PO DAILY 10/08/16 ARIPiprazole [Abilify] 5 mg PO DAILY 12/21/22 Dextroamphetamine/Amphetamine [Dextroamp-Amphetamine 5 mg Tab] 5 mg PO DAILY 12/21/22 Estradiol [Vagifem] 10 mcg VG Q7D 12/21/22 Venlafaxine HCl 75 mg PO QPM 12/21/22 Acetaminophen [Tylenol] 650 mg PO Q6H PRN 02/03/23 Cholecalciferol [Vitamin D3] 7,000 unit PO DAILY 02/03/23 Allergies/Adverse Reactions: Allergies Allergy/AdvReac Type Severity Reaction Status Date / Time bupropion [From Wellbutrin] Allergy Unknown Verified 01/29/23 17:35 citalopram [From Celexa] Allergy Unknown Verified 01/29/23 17:35 escitalopram [From Lexapro] Allergy Unknown Verified 01/29/23 17:35 estrogens, conjugated Allergy Unknown Verified 01/29/23 17:35 [From Premarin] quetiapine [From Seroquel] Allergy Unknown Verified 01/29/23 17:35 Sulfa (Sulfonamide Allergy Itching Verified 01/29/23 17:35 Antibiotics) tetracycline [Tetracycline] Allergy Respiratory Verified 01/29/23 17:35 Anes History & Medical History - Medical History Cardiovascular: reports: None Pulmonary: reports: None, Other Gastrointestinal: reports: Diverticulitis, Other Urinary: reports: None, Other Musculoskeletal: reports: None Endocrine/Autoimmune: reports: Other Blood Disorders: reports: None Skin: reports: None Smoking Status: Never smoker - Surgical History General: reports: Colonoscopy, Other Eyes Ears Nose Throat (EENT): reports: Cataracts Gynecologic: reports: Dilation and currettage, Tubal ligation, Hysterectomy, Oophrectomy Orthopedic: reports: Spine surgery, Other Exam General: Alert, Oriented x3, Cooperative Dental: Dentures full Upper, Dentures full Lower Mouth Openin Fingerbreadth Neck Mobility: Normal Mallampati classification: II Thyromental Distance: 4-6 cm Respiratory: Lungs clear, Normal breath sounds, No respiratory distress, Decreased breath sounds Cardiovascular: Regular rate Neurological: Normal speech Mental/Cognitive Status: Alert/Oriented X3, Normal for patient Cognitive Status: Within normal limits Plan Anesthesia Type: Total IV Consent for Procedure(s) Verified and Reviewed: Yes Code Status: Attempt Resuscitation ASA classification: 3-Severe systemic disease Is this case an emergency?: No
[2023-02-05] MEDS ORDERED: fentaNYL 100 MCG/2 ML VIAL ONE (11:49)
[2023-02-05] MEDS ORDERED: MIDAZOLAM 2 MG/2 ML VIAL ONE (11:49)
[2023-02-05] MEDS ORDERED: BUPIVACAINE 0.25% PF 30 ML VIAL ONE (11:49)
[2023-02-05] MEDS ORDERED: LIDOCAINE MPF 2%-EPI 1:200000 20 ML VIAL ONE (11:49)
[2023-02-05] MEDS ORDERED: PROPOFOL 200 MG/20 ML VIAL IVP ONE (11:49)
--- NOTE | 2023-02-05 12:21 | HISTORY & PHYSICAL EXAMINATION ---
Chief Complaint - Chief Complaint Chief Complaint: here for chemotherapy port History of Present Illness - History Obtained From Records Reviewed: yes History obtained from: pt Exam Limitations: none - History of Present Illness HPI Comment/Other: recent tremors and weakness. found to have lung cancer. no heart or breathing problems History - Past Medical History Cardiovascular: reports: None Respiratory: reports: None, Other Endocrine/Autoimmune: reports: Other GI: reports: Diverticulitis, Other : reports: None, Other HEENT: reports: Chronic vision loss Psych: reports: Depression, Anxiety, Panic attacks, ADD/ADHD Musculoskeletal: reports: None Derm: reports: None MRSA Hx?: No - Past Surgical History General: reports: Colonoscopy, Other Ortho: reports: Spine surgery, Other /[employer] QUILTING: reports: Dilation and currettage, Tubal ligation, Hysterectomy, Oophrectomy HEENT: reports: Cataracts - POLST Patient has POLST: No Meds/Allgy - Home Medications Home Medications: Ambulatory Orders Medication Instructions Recorded Confirmed Divalproex Sodium [Depakote] 250 mg PO DAILY 10/08/16 02/05/23 Venlafaxine HCl [Effexor Xr] 150 mg PO DAILY 10/08/16 02/05/23 ARIPiprazole [Abilify] 5 mg PO DAILY 12/21/22 02/05/23 Dextroamphetamine/Amphetamine 5 mg PO DAILY 12/21/22 02/05/23 [Dextroamp-Amphetamine 5 mg Tab] Estradiol [Vagifem] 10 mcg VG Q7D 12/21/22 02/03/23 Venlafaxine HCl 75 mg PO QPM 12/21/22 02/05/23 Acetaminophen [Tylenol] 650 mg PO Q6H PRN 02/03/23 02/05/23 Cholecalciferol [Vitamin D3] 7,000 unit PO DAILY 02/03/23 02/05/23 - Allergies Allergies/Adverse Reactions: Allergies Allergy/AdvReac Type Severity Reaction Status Date / Time bupropion [From Wellbutrin] Allergy Unknown Verified 01/29/23 17:35 citalopram [From Celexa] Allergy Unknown Verified 01/29/23 17:35 escitalopram [From Lexapro] Allergy Unknown Verified 01/29/23 17:35 estrogens, conjugated Allergy Unknown Verified 01/29/23 17:35 [From Premarin] quetiapine [From Seroquel] Allergy Unknown Verified 01/29/23 17:35 Sulfa (Sulfonamide Allergy Itching Verified 01/29/23 17:35 Antibiotics) tetracycline [Tetracycline] Allergy Respiratory Verified 01/29/23 17:35 Review of Systems - Other Findings Other Findings: 10 pt ros as above otherwise unremarkable Exam - Vital Signs Reviewed Vital Signs: Yes Vital Signs: Vital Signs x48h Temp Pulse Resp BP Pulse Ox 02/05/23 11:14 36.4 C L 92 18 129/78 96 - Physical Exam General Appearance: positive: No acute distress, Alert Eyes Bilateral: positive: PERRL, EOMI, No scleral icterus ENT: positive: No signs of dehydration Neck: positive: No JVD, Trachea midline Respiratory: positive: No respiratory distress Cardiovascular: positive: Regular rate & rhythm Abdomen: positive: No distention Neurologic/Psychiatric: positive: Oriented x3 Conclusion/Plan - Problem List (1) Lung cancer Conclusion/Plan: plan port placement. parq held and consent obtained - Lab Results Lab results reviewed: Yes
[2023-02-05] MEDS ORDERED: ceFAZolin 1 GM VIAL ONE (12:31)
[2023-02-05] MEDS ORDERED: LIDOCAINE MPF 2%-EPI 1:200000 20 ML VIAL SUBQ ONE ×2 (12:45)
[2023-02-05] MEDS ORDERED: BUPIVACAINE 0.25% PF 30 ML VIAL SUBQ ONE ×2 (12:45)
[2023-02-05] MEDS ORDERED: HYDROcod/ACETAM 5/325 MG TABLET PO PRN (13:10)
--- NOTE | 2023-02-05 13:15 | OPERATIVE REPORT ---
Operative Report - General Procedure Date: 02/05/23 Planned Procedure: left subclavian power port placement Pre-Op Diagnosis: lung cancer Procedure Performed: left subclavian power port placement fluoroscopic guidance Post Op Diagnosis: same - Procedure Note Primary Surgeon: cathy mena Anesthesia Technique: Local, MAC Pathology: none Estimated Blood Loss (mL): 2 Drain/Tube Type: Other (none) Indications: need for chemotherapy Findings: good flush and flow. tip at jxn ivc and atrium Complications: none - Other Other Information/Narrative: The patient was properly identified brought to the operating room and placed in supine position. Monitored anesthesia care was given as well as IV sedation. A towel roll was placed under the upper back. The patient was prepped and draped in a sterile fashion and given preoperative antibiotics. Local anesthetic was given. The left subclavian vein was easily accessed first pass with a needle. Guide wire placed and position confirmed. A subcutaneous pocket on the left upper chest was created measuring approximately 2-1/2 cm. Portacatheter tubing was then placed subcutaneous up to the venous access point. The portacatheter tubing was then easily placed with the use of a dilator peel-away sheath. The tubing was aspirated and flushed with saline. Under fluoroscopic guidance the tubing was pulled back to the junction of the atrium and the superior vena cava. The portacatheter aspirated and flushed easily assuring good position. The portacatheter was then cut to size and further assembled. The port was secured to subcutaneous tissue with 2 interrupted 4-0 Prolene sutures. The port again was aspirated and flushed now with heparin. Buried interrupted subdermal 3-0 Vicryl sutures were then placed. Skin was closed with buried interrupted and running 4-0 Monocryl subcuticular suture. Dressing was applied. The patient tolerated the procedure well was awakened and brought to recovery in good condition.
--- NOTE | 2023-02-05 13:41 | ANESTHESIA POST OP EVALUATION ---
Anesthesia Post Eval - Post Anesthesia Eval Vitals: Last Vital Signs Temp 36.1 C L 02/05/23 13:18 Pulse 85 02/05/23 13:18 Resp 19 02/05/23 13:18 BP 120/73 02/05/23 13:18 Pulse Ox 100 02/05/23 13:18 O2 Flow Rate CV Function Including HR & BP: Stable Pain Control: Satisfactory Nausea & Vomiting: Negative Mental Status: Baseline Respiratory Status: Airway Patent Hydration Status: Satisfactory Anesthesia Complications: None
[2023-02-05 13:59] VITALS: BP 118/66
--- NOTE | 2023-02-05 17:12 | XRAY Report ---
PROCEDURE: OR Port-A-Cath INDICATIONS: port placement CONTRAST: None FLUORO TIME: 0.4 TECHNIQUE: Real time fluoroscopy was performed of the thorax. COMPARISON: None. FINDINGS: Single fluoroscopic study demonstrates the tip of a left Port-A-Cath in the region of the cavoatrial junction. IMPRESSION: Intraoperative fluoroscopic images of the tip of a Port-A-Cath likely near the cavoatrial junction. Reviewed by: Tova Bishop MD on 02/05/2023 5:10 PM PDT Approved by: Tova Bishop MD on 02/05/2023 5:10 PM PDT Station ID: [id number]
== END 2023-02-05 10:53 | disposition home or self-care (01) ==
LOC: SDS 10:52
PROVIDERS: ATTEND Surgery
DX: C34.90 Malignant neoplasm of unspecified part of unspecified bronchus or lung (principal); R25.1 Tremor, unspecified; R53.1 Weakness
CPT/HCPCS: 36561; C1788; J7120

== ENCOUNTER 2023-02-08 09:40 | Inpatient (IN) | payer MEDICARE, OTHER ==
[2023-02-08 10:01] LABS: BASOPHILS % (AUTO) 0.5 %; HGB - HEMOGLOBIN 14.2 g/dL (12.0-16.0); LYMPHOCYTES % (AUTO) 14.4 %; MEAN CORPUSCULAR HGB CONC 32.3 g/dL (32.0-36.0); MEAN CORPUSCULAR VOLUME 92.8 fL (81.0-99.0); MEAN PLATELET VOLUME 9.5 fL (7.9-10.8); MONOCYTES % (AUTO) 7.8 %; NEUTROPHILS % (AUTO) 71.8 %; PLT - PLATELET COUNT 252 10^3/uL (130-450); RED BLOOD COUNT 4.74 10^6/uL (4.20-5.40); RED CELL DISTRIBUTION WIDTH 16.7 % (12.0-15.0); WHITE BLOOD COUNT 14.1 x10^3/uL (4.8-10.8)
[2023-02-08] MEDS ORDERED: metroNIDAZOLE 500 MG/100 ML 500 MG/100 ML BAG IV STA (10:10)
[2023-02-08] MEDS ORDERED: CEFEPIME 2 GM in SODIUM CHLORIDE 0.9% MINIBAG 100 ML IV STA (10:10)
[2023-02-08] MEDS ORDERED: VANCOMYCIN INJ 1.25 GM in SODIUM CHLORIDE 0.9% 250 ML IV STA (10:10)
[2023-02-08 10:13] LABS: INR 1.3 (0.8-1.2); PT - PROTHROMBIN TIME 14.1 secs (9.9-12.6)
[2023-02-08 10:14] LABS: ABNORMAL LYMPHS % (MANUAL) 0 %
[2023-02-08 10:20] LABS: BAND NEUTROPHILS % (MANUAL) 4 %; DIFFERENTIAL COMMENT MANUAL DIFFERENTIAL; LYMPHOCYTES # (MANUAL) 2.5 10^3/uL (1.5-3.5); LYMPHOCYTES % (MANUAL) 18 %; MONOCYTES # (MANUAL) 1.7 10^3/uL (0.0-1.0); NEUTROPHILS # (MANUAL) 9.9 10^3/uL (1.5-6.6); NUCLEATED RBC (MANUAL) 3 %; PLATELET ESTIMATE, MANUAL NORMAL (130-450,000) (NORMAL); PLATELET MORPHOLOGY NORMAL APPEARANCE (NORMAL); RBC MORPHOLOGY (MULTIPLE) 1+ POLYCHROMASIA (NORMAL)
[2023-02-08 10:21] LABS: ALBUMIN 3.2 g/dL (3.2-5.5); ALBUMIN/GLOBULIN RATIO 0.8 (1.0-2.2); BILIRUBIN,TOTAL 2.3 mg/dL (0.2-1.0); CREATININE 1.1 mg/dL (0.4-1.0); POTASSIUM 4.8 mmol/L (3.5-5.0); TOTAL PROTEIN 7.4 g/dL (6.7-8.2)
[2023-02-08 10:22] LABS: CALCIUM 12.1 mg/dL (8.5-10.3)
--- NOTE | 2023-02-08 10:25 | XRAY Report ---
PROCEDURE: Chest 1 View X-Ray INDICATIONS: chest pain TECHNIQUE: One view of the chest was acquired. COMPARISON: None. FINDINGS: Surgical changes and devices: Left chest wall port is seen. Lungs and pleura: Opacity in the right midlung is unchanged compared to CT on 02/04/2023. Lung volumes are low. Diffuse airspace opacities. Mediastinum: Mediastinal contours appear normal. Heart size is normal. Bones and chest wall: No suspicious bony lesions. Overlying soft tissues appear unremarkable. IMPRESSION: Opacity in right mid lung is unchanged. Diffuse airspace opacities consistent with a component of CHF. Reviewed by: Steve Crowley on 02/08/2023 10:23 AM PDT Approved by: Steve Crowley on 02/08/2023 10:23 AM PDT Station ID: [id number]
[2023-02-08] MEDS ORDERED: VANCOMYCIN INJ 1 GM, VANCOMYCIN INJ 500 MG in SODIUM CHLORIDE 0.9% 500 ML IV STA (10:27)
[2023-02-08] MEDS ORDERED: SODIUM CHLORIDE 0.9% 1,000 ML IV STA (10:29)
[2023-02-08 10:34] LABS: GLUCOSE, URINE (UA) NEGATIVE (NEGATIVE); KETONES,URINE (UA) 15 mg/dL (NEGATIVE); LEUKOCYTE ESTERASE, URINE NEGATIVE (NEGATIVE); NITRITE,URINE NEGATIVE (NEGATIVE); OCCULT BLOOD,URINE LARGE (NEGATIVE); PROTEIN,URINE 100 mg/dL (NEGATIVE); UROBILINOGEN,URINE 4 E.U./dL (NORMAL)
[2023-02-08 10:36] LABS: CLARITY,URINE HAZY (CLEAR)
[2023-02-08 10:38] LABS: BILIRUBIN,URINE NEGATIVE (NEGATIVE); ICTOTEST,URINE NEGATIVE
--- NOTE | 2023-02-08 10:40 | ED Physician Documentation ---
PD HPI ALTERED MENTAL STATUS - Stated complaint Stated Complaint: UNRESPONSIVE - Chief complaint Chief Complaint: Neuro - History obtained from History obtained from: Family, EMS - History of Present Illness Timing - onset: How many weeks ago (1) Timing - duration: Weeks (1) Timing - details: Gradual onset, Still present Quality / character: Less responsive Associated symptoms: Dyspnea, General weakness Contributing factors: Cancer, Known psych illness Basline status: Alert and oriented X 3, Ambulatory, Independent Similar symptoms before: Has not had sx before Recently seen: Clinic, Emergency Dept, Surgery - Additional information Additional information: 72-year-old Jyothi Ulrich has had a recent diagnosis of small cell lung cancer. She was evaluated in the emergency department for back pain, the lung cancer was discovered, she has had a biopsy done and she has had a port placed 4 days ago. She is in preparation for chemotherapy. Her and son indicate she has progressive weakness and obtundation. She is less responsive each day over the past week. Review of Systems Unable to obtain: AMS, Other (history from family) Constitutional: denies: Fever Throat: denies: Dental pain / toothache Cardiac: denies: Chest pain / pressure Respiratory: reports: Dyspnea PD PAST MEDICAL HISTORY - Past Medical History Cardiovascular: None Respiratory: None, Other Endocrine/Autoimmune: Other GI: Diverticulitis, Other : None, Other HEENT: Chronic vision loss Psych: Depression, Anxiety, Panic attacks, ADD/ADHD Musculoskeletal: None Derm: None - Past Surgical History Past Surgical History: Yes General: Colonoscopy, Other Ortho: Spine surgery, Other /CARBONATION TESTER: Dilation and currettage, Tubal ligation, Hysterectomy, Oophrectomy HEENT: Cataracts - Present Medications Home Medications: Ambulatory Orders Medication Instructions Recorded Confirmed Divalproex Sodium [Depakote] 250 mg PO DAILY 10/08/16 02/08/23 Venlafaxine HCl [Effexor Xr] 150 mg PO DAILY 10/08/16 02/08/23 ARIPiprazole [Abilify] 5 mg PO DAILY 12/21/22 02/08/23 Dextroamphetamine/Amphetamine 5 mg PO DAILY 12/21/22 02/08/23 [Dextroamp-Amphetamine 5 mg Tab] Estradiol [Vagifem] 10 mcg VG Q7D 12/21/22 02/08/23 Acetaminophen [Tylenol] 650 mg PO Q6H PRN 02/03/23 02/08/23 Aspirin [Aspirin EC] 81 mg PO DAILY 02/08/23 02/08/[address] [Depakote Dr] 500 mg PO QPM 02/08/23 02/08/23 Venlafaxine ER [Effexor ER] 75 mg PO QPM 02/08/23 02/08/23 - Allergies Allergies/Adverse Reactions: Allergies Allergy/AdvReac Type Severity Reaction Status Date / Time bupropion [From Wellbutrin] Allergy Unknown Verified 02/08/23 09:56 citalopram [From Celexa] Allergy Unknown Verified 02/08/23 09:56 escitalopram [From Lexapro] Allergy Unknown Verified 02/08/23 09:56 estrogens, conjugated Allergy Unknown Verified 02/08/23 09:56 [From Premarin] quetiapine [From Seroquel] Allergy Unknown Verified 02/08/23 09:56 Sulfa (Sulfonamide Allergy Itching Verified 02/08/23 09:56 Antibiotics) tetracycline [Tetracycline] Allergy Respiratory Verified 02/08/23 09:56 - Social History Does the pt smoke?: No Smoking Status: Never smoker Does the pt drink ETOH?: Yes Does the pt have substance abuse?: No - POLST Patient has POLST: No PD ED PE NORMAL - Vitals Vital signs reviewed: Yes (tachy, tachypneic and diastolic hypertension ) - General General: Well developed/nourished, Other (motteled, eyes open, not reponding, looking around) - HEENT HEENT: Atraumatic, PERRL, EOMI - Neck Neck: Supple, no meningeal sign, No bony TTP - Cardiac Cardiac: No murmur, Other (tachy to 150) - Respiratory Respiratory: Other (tachypneic at rest, rhonchi on right, diminished breath sounds. 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, No motor deficit, No sensory deficit Eye Opening: Spontaneous Motor: Localizes to Pain Verbal: None GCS Score: 10 - Psych Psych: Other (withdrawn and flat) Results - Vitals Vitals: Vital Signs - 24 hr 02/08/23 02/08/23 02/08/23 09:51 10:00 10:30 Temperature 36.5 C Heart Rate 150 H 148 H 136 H Respiratory 35 H 35 H 38 H Rate Blood Pressure 109/86 H 123/86 H 144/88 H O2 Saturation 98 99 94 02/08/23 02/08/23 02/08/23 10:45 11:30 12:10 Temperature Heart Rate 55 L 128 H Respiratory 12 32 H Rate Blood Pressure 144/88 H 139/88 H 161/86 H O2 Saturation 100 91 L 02/08/23 02/08/23 02/08/23 12:16 12:32 12:37 Temperature Heart Rate 129 H 130 H 130 H Respiratory 27 H 19 30 H Rate Blood Pressure 162/89 H 162/89 H 158/94 H O2 Saturation 93 92 93 Oxygen O2 Source Room air - EKG (time done) 0946 EKG releavant findings:: EKG personally interpreted by author of this note. Relevant findings are: Rate: Rate (enter#) (151) Rhythm: SVT QRS: LVH Compare to prior EKG: Changed from prior EKG (SPT 02/21/2013 the rate has increased and the voltage is increased) Computer interpretation: Agree with computer - Labs Labs: Laboratory Tests 02/08/23 02/08/23 02/08/23 09:46 09:54 09:54 WBC 14.1 H RBC 4.74 Hgb 14.2 Hct 44.0 MCV 92.8 MCH 30.0 MCHC 32.3 RDW 16.7 H Plt Count 252 MPV 9.5 Neut # (Auto) Not Reportable Lymph # (Auto) Not Reportable [place] # (Auto) Not Reportable Eos # (Auto) Not Reportable Baso # (Auto) Not Reportable Absolute Nucleated RBC Not Reportable Total Counted 100 Band Neuts % (Manual) 4 Abnorm Lymph % (Manual) 0 Nucleated RBC % Not Reportable Neutrophils # (Manual) 9.9 H Lymphocytes # (Manual) 2.5 Monocytes # (Manual) 1.7 H Eosinophils # (Manual) 0.0 Basophils # (Manual) 0.0 Nucleated RBCs 3 Differential Comment MANUAL DIFFERENTIAL Platelet Estimate NORMAL (130-450,000) Platelet Morphology NORMAL APPEARANCE RBC Morph Micro Appear 1+ POLYCHROMASIA ESR PT 14.1 H INR 1.3 H APTT Bld Gas Analysis Time Sample Site ABG pH ABG pCO2 ABG pO2 ABG HCO3 ABG Total CO2 ABG O2 Saturation ABG Base Excess Gonzales Test Room Air Sodium Potassium Chloride Carbon Dioxide Anion Gap BUN Creatinine Estimated GFR (MDRD) Glucose POC Whole Bld Glucose 78 Lactic Acid Calcium Total Bilirubin AST ALT Alkaline Phosphatase Troponin I High Sens C-Reactive Protein Total Protein Albumin Globulin Albumin/Globulin Ratio Lipase Urine Color Urine Clarity Urine pH Ur Specific [place] Urine Protein Urine Glucose (UA) Urine Ketones Urine Occult Blood Urine Nitrite Urine Bilirubin Urine Urobilinogen Ur Leukocyte Esterase Urine RBC Urine WBC Ur Squamous Epith Cells Urine Bacteria Urine Mucus Ur Microscopic Review Urine Culture Comments Nasal Adenovirus (PCR) Nasal B. parapertussis DNA (PCR) Nasal Coronavir 229E PCR Nasal Coronavir HKU1 PCR Nasal Coronavir NL63 PCR Nasal Coronavir OC43 PCR Nasal Enterovir/Rhinovir PCR Nasal Influenza B PCR Nasal Influenza A PCR Nasal Parainfluen 1 PCR Nasal Parainfluen 2 PCR Nasal Parainfluen 3 PCR Nasal Parainfluen 4 PCR Nasal RSV (PCR) Nasal B.pertussis DNA PCR Nasal C.pneumoniae (PCR) Octavio Human Metapneumo PCR Nasal M.pneumoniae (PCR) Nasal SARS-CoV-2 (PCR) 02/08/23 02/08/23 02/08/23 09:54 09:54 09:54 WBC RBC Hgb Hct MCV MCH MCHC RDW Plt Count MPV Neut # (Auto) Lymph # (Auto) [place] # (Auto) Eos # (Auto) Baso # (Auto) Absolute Nucleated RBC Total Counted Band Neuts % (Manual) Abnorm Lymph % (Manual) Nucleated RBC % Neutrophils # (Manual) Lymphocytes # (Manual) Monocytes # (Manual) Eosinophils # (Manual) Basophils # (Manual) Nucleated RBCs Differential Comment Platelet Estimate Platelet Morphology RBC Morph Micro Appear ESR PT INR APTT Bld Gas Analysis Time Sample Site ABG pH ABG pCO2 ABG pO2 ABG HCO3 ABG Total CO2 ABG O2 Saturation ABG Base Excess Gonzales Test Room Air Sodium 137 Potassium 4.8 Chloride 96 L Carbon Dioxide 19 L Anion Gap 22.0 H BUN 28 H Creatinine 1.1 H Estimated GFR (MDRD) 49 L Glucose 88 POC Whole Bld Glucose Lactic Acid 9.1 H* Calcium 12.1 H* Total Bilirubin 2.3 H AST 380 H ALT 116 H Alkaline Phosphatase 532 H Troponin I High Sens C-Reactive Protein Total Protein 7.4 Albumin 3.2 Globulin 4.2 Albumin/Globulin Ratio 0.8 L Lipase 343 H Urine Color Urine Clarity Urine pH Ur Specific [place] Urine Protein Urine Glucose (UA) Urine Ketones Urine Occult Blood Urine Nitrite Urine Bilirubin Urine Urobilinogen Ur Leukocyte Esterase Urine RBC Urine WBC Ur Squamous Epith Cells Urine Bacteria Urine Mucus Ur Microscopic Review Urine Culture Comments Nasal Adenovirus (PCR) NOT DETECTED Nasal B. parapertussis DNA (PCR) NOT DETECTED Nasal Coronavir 229E PCR NOT DETECTED Nasal Coronavir HKU1 PCR NOT DETECTED Nasal Coronavir NL63 PCR NOT DETECTED Nasal Coronavir OC43 PCR NOT DETECTED Nasal Enterovir/Rhinovir PCR NOT DETECTED Nasal Influenza B PCR NOT DETECTED Nasal Influenza A PCR NOT DETECTED Nasal Parainfluen 1 PCR NOT DETECTED Nasal Parainfluen 2 PCR NOT DETECTED Nasal Parainfluen 3 PCR NOT DETECTED Nasal Parainfluen 4 PCR NOT DETECTED Nasal RSV (PCR) NOT DETECTED Nasal B.pertussis DNA PCR NOT DETECTED Nasal C.pneumoniae (PCR) NOT DETECTED Octavio Human Metapneumo PCR NOT DETECTED Nasal M.pneumoniae (PCR) NOT DETECTED Nasal SARS-CoV-2 (PCR) NOT DETECTED 02/08/23 02/08/23 02/08/23 10:22 10:55 11:24 WBC RBC Hgb Hct MCV MCH MCHC RDW Plt Count MPV Neut # (Auto) Lymph # (Auto) [place] # (Auto) Eos # (Auto) Baso # (Auto) Absolute Nucleated RBC Total Counted Band Neuts % (Manual) Abnorm Lymph % (Manual) Nucleated RBC % Neutrophils # (Manual) Lymphocytes # (Manual) Monocytes # (Manual) Eosinophils # (Manual) Basophils # (Manual) Nucleated RBCs Differential Comment Platelet Estimate Platelet Morphology RBC Morph Micro Appear ESR PT INR APTT Bld Gas Analysis Time 1055 Sample Site RIGHT RADIAL ABG pH 7.43 ABG pCO2 28 L ABG pO2 57 L ABG HCO3 18.2 L ABG Total CO2 19.1 L ABG O2 Saturation 88 L ABG Base Excess -4.6 L Gonzales Test POSITIVE Room Air YES Sodium Potassium Chloride Carbon Dioxide Anion Gap BUN Creatinine Estimated GFR (MDRD) Glucose POC Whole Bld Glucose Lactic Acid 6.6 H* Calcium Total Bilirubin AST ALT Alkaline Phosphatase Troponin I High Sens C-Reactive Protein Total Protein Albumin Globulin Albumin/Globulin Ratio Lipase Urine Color DARK YELLOW Urine Clarity HAZY Urine pH 6.0 Ur Specific [place] >=1.030 H Urine Protein 100 H Urine Glucose (UA) NEGATIVE Urine Ketones 15 H Urine Occult Blood LARGE H Urine Nitrite NEGATIVE Urine Bilirubin NEGATIVE Urine Urobilinogen 4 H Ur Leukocyte Esterase NEGATIVE Urine RBC 11-25 H Urine WBC 4-5 Ur Squamous Epith Cells MANY Squamous H Urine Bacteria Moderate H Urine Mucus Marked Strands Ur Microscopic Review INDICATED Urine Culture Comments NOT INDICATED Nasal Adenovirus (PCR) Nasal B. parapertussis DNA (PCR) Nasal Coronavir 229E PCR Nasal Coronavir HKU1 PCR Nasal Coronavir NL63 PCR Nasal Coronavir OC43 PCR Nasal Enterovir/Rhinovir PCR Nasal Influenza B PCR Nasal Influenza A PCR Nasal Parainfluen 1 PCR Nasal Parainfluen 2 PCR Nasal Parainfluen 3 PCR Nasal Parainfluen 4 PCR Nasal RSV (PCR) Nasal B.pertussis DNA PCR Nasal C.pneumoniae (PCR) Octavio Human Metapneumo PCR Nasal M.pneumoniae (PCR) Nasal SARS-CoV-2 (PCR) 02/08/23 02/08/23 02/08/23 11:24 11:24 11:24 WBC 15.3 H RBC 4.42 Hgb 13.4 Hct 41.8 MCV 94.6 MCH 30.3 MCHC 32.1 RDW 17.3 H Plt Count 210 MPV 9.6 Neut # (Auto) Not Reportable Lymph # (Auto) Not Reportable [place] # (Auto) Not Reportable Eos # (Auto) Not Reportable Baso # (Auto) Not Reportable Absolute Nucleated RBC Not Reportable Total Counted 100 Band Neuts % (Manual) 4 Abnorm Lymph % (Manual) 0 Nucleated RBC % Not Reportable Neutrophils # (Manual) 12.7 H Lymphocytes # (Manual) 1.4 L Monocytes # (Manual) 1.2 H Eosinophils # (Manual) 0.0 Basophils # (Manual) 0.0 Nucleated RBCs 3 Differential Comment MANUAL DIFFERENTIAL Platelet Estimate NORMAL (130-450,000) Platelet Morphology NORMAL APPEARANCE RBC Morph Micro Appear 1+ POLYCHROMASIA ESR PT 15.0 H INR 1.4 H APTT 26.2 Bld Gas Analysis Time Sample Site ABG pH ABG pCO2 ABG pO2 ABG HCO3 ABG Total CO2 ABG O2 Saturation ABG Base Excess Gonzales Test Room Air Sodium 136 Potassium 4.2 Chloride 99 L Carbon Dioxide 19 L Anion Gap 18.0 H BUN 27 H Creatinine 0.9 Estimated GFR (MDRD) 62 L Glucose 75 POC Whole Bld Glucose Lactic Acid Calcium 11.0 H Total Bilirubin 2.5 H AST 520 H ALT 169 H Alkaline Phosphatase 449 H Troponin I High Sens C-Reactive Protein Total Protein 6.1 L Albumin 2.8 L Globulin 3.3 Albumin/Globulin Ratio 0.8 L Lipase Urine Color Urine Clarity Urine pH Ur Specific [place] Urine Protein Urine Glucose (UA) Urine Ketones Urine Occult Blood Urine Nitrite Urine Bilirubin Urine Urobilinogen Ur Leukocyte Esterase Urine RBC Urine WBC Ur Squamous Epith Cells Urine Bacteria Urine Mucus Ur Microscopic Review Urine Culture Comments Nasal Adenovirus (PCR) Nasal B. parapertussis DNA (PCR) Nasal Coronavir 229E PCR Nasal Coronavir HKU1 PCR Nasal Coronavir NL63 PCR Nasal Coronavir OC43 PCR Nasal Enterovir/Rhinovir PCR Nasal Influenza B PCR Nasal Influenza A PCR Nasal Parainfluen 1 PCR Nasal Parainfluen 2 PCR Nasal Parainfluen 3 PCR Nasal Parainfluen 4 PCR Nasal RSV (PCR) Nasal B.pertussis DNA PCR Nasal C.pneumoniae (PCR) Octavio Human Metapneumo PCR Nasal M.pneumoniae (PCR) Nasal SARS-CoV-2 (PCR) 02/08/23 02/08/23 02/08/23 11:24 11:24 11:24 WBC RBC Hgb Hct MCV MCH MCHC RDW Plt Count MPV Neut # (Auto) Lymph # (Auto) [place] # (Auto) Eos # (Auto) Baso # (Auto) Absolute Nucleated RBC Total Counted Band Neuts % (Manual) Abnorm Lymph % (Manual) Nucleated RBC % Neutrophils # (Manual) Lymphocytes # (Manual) Monocytes # (Manual) Eosinophils # (Manual) Basophils # (Manual) Nucleated RBCs Differential Comment Platelet Estimate Platelet Morphology RBC Morph Micro Appear ESR 20 PT INR APTT Bld Gas Analysis Time Sample Site ABG pH ABG pCO2 ABG pO2 ABG HCO3 ABG Total CO2 ABG O2 Saturation ABG Base Excess Gonzales Test Room Air Sodium Potassium Chloride Carbon Dioxide Anion Gap BUN Creatinine Estimated GFR (MDRD) Glucose POC Whole Bld Glucose Lactic Acid Calcium Total Bilirubin AST ALT Alkaline Phosphatase Troponin I High Sens 86.9 H* C-Reactive Protein 2.7 H Total Protein Albumin Globulin Albumin/Globulin Ratio Lipase Urine Color Urine Clarity Urine pH Ur Specific [place] Urine Protein Urine Glucose (UA) Urine Ketones Urine Occult Blood Urine Nitrite Urine Bilirubin Urine Urobilinogen Ur Leukocyte Esterase Urine RBC Urine WBC Ur Squamous Epith Cells Urine Bacteria Urine Mucus Ur Microscopic Review Urine Culture Comments Nasal Adenovirus (PCR) Nasal B. parapertussis DNA (PCR) Nasal Coronavir 229E PCR Nasal Coronavir HKU1 PCR Nasal Coronavir NL63 PCR Nasal Coronavir OC43 PCR Nasal Enterovir/Rhinovir PCR Nasal Influenza B PCR Nasal Influenza A PCR Nasal Parainfluen 1 PCR Nasal Parainfluen 2 PCR Nasal Parainfluen 3 PCR Nasal Parainfluen 4 PCR Nasal RSV (PCR) Nasal B.pertussis DNA PCR Nasal C.pneumoniae (PCR) Octavio Human Metapneumo PCR Nasal M.pneumoniae (PCR) Nasal SARS-CoV-2 (PCR) - Rads (name of study) chest Relevant Findings:: Prelim report reviewed (Impression: Opacity in the right mid lung is unchanged. Diffuse airspace opacities consistent with a component of CHF.), EMP independent interpretation of test CT head Relevant Findings:: Prelim report reviewed (Impression: 1. No acute intracranial abnormality. Microvascular ischemic disease and age-related cerebral volume loss. No evidence of metastatic disease in the brain. No abnormal postcontrast enhancement.), EMP independent interpretation of test Procedures - IVC sono (time) 1000 Bedside IVC sono: IVC measures (cm) (0.72), Significant dehydration (est 2 liter deficit) PD Medical Decision Making - ED course Complexity details: reviewed old records, reviewed results, re-evaluated patient, considered differential, d/w patient, d/w family Reviewed Lab Results: We reviewed a complete blood count showing an elevated white blood cell count of 14.1 with a normal hemoglobin hematocrit and platelets. Differential showed excess neutrophils chemistries showed normal sodium and potassium BUN was elevated at 27 creatinine normal at 0.9 the lactate was elevated at 9.1 calcium elevated at 12.1 bilirubin elevated 2.3 AST elevated at 380 ALT elevated at 116 and alkaline phosphatase elevated at 532. There are not recent laboratory values for comparison. My interpretation of these findings are a likely overwhelming infection and some involvement of the liver, either metastases or directly. ED course: 72-year-old Jyothi Ulrich appears to have the unfortunate new diagnosis of small cell lung cancer and she appears to be progressing rapidly. Today she presents to the emergency department less than 6 weeks after diagnosis, obtunded. She appears mottled, tachypneic, tachycardic, volume depleted and with a rapidly expanding mass in the chest. Patient is accompanied today by her and an adult son who are attentive and new to the diagnosis.The patient appears critically ill on arrival to the emergency department and her condition is guarded. We did perform CT scanning of the head was with concerns for potential metastases and even with contrast study we find no evidence. We proceeded in our evaluation and treatment with the diagnosis of sepsis and administered triple antibiotic therapy as well as intravenous fluids.A CCU bed is available in the hospital and Dr. Shannan Dodge is consulted in the case regarding the care of the patient. She presents to the emergency department to evaluate the patient and the patient is admitted to the CCU. Departure - Departure Disposition: 66 [facility] DC/Xfer Clinical Impression: Lung cancer Qualifiers: Laterality: right Lung location: middle lobe of lung Qualified Code(s): C34.2 - Malignant neoplasm of middle lobe, bronchus or lung Altered mental status Qualifiers: Altered mental status type: stupor Qualified Code(s): R40.1 - Stupor Sepsis Qualifiers: Sepsis type: sepsis due to unspecified organism Sepsis acute organ dysfunction status: with acute organ dysfunction Severe sepsis acute organ dysfunction type: encephalopathy Severe sepsis shock status: without septic shock Qualified Code(s): A41.9 - Sepsis, unspecified organism Discharge Date/Time: 02/08/23 14:21
[2023-02-08 10:41] LABS: SQUAMOUS EPITHELIAL CELL,UR MANY Squamous (<= Few)
[2023-02-08 10:42] LABS: BACTERIA,URINE Moderate /HPF (None Seen); MUCUS,URINE Marked Strands
[2023-02-08 11:10] LABS: ABG BASE EXCESS -4.6 mmol/L (-2.0-3.0); ABG HCO3 18.2 mmol/L (22.0-26.0); ABG OXYGEN SATURATION 88 % (94-98); ABG PCO2 28 mmHg (34-45); ABG PH 7.43 (7.35-7.45); ABG PO2 57 mmHg (80-100); ABG TCO2 19.1 MMOL/L (21.0-29.0)
[2023-02-08 11:11] LABS: ALLEN TEST POSITIVE
[2023-02-08] MEDS ORDERED: iohexoL-300 100 ML VIAL ONE (11:15)
[2023-02-08 11:24] LABS: B. PARAPERTUSSIS- RESP PCR PAN NOT DETECTED; B. PERTUSSIS- RESP PCR PANEL NOT DETECTED; C. PNEUMONIAE- RESP PCR PANEL NOT DETECTED; CORONAVIRUS 229E-RESP PCR NOT DETECTED; CORONAVIRUS HKU1-RESP PCR NOT DETECTED; CORONAVIRUS NL63-RESP PCR NOT DETECTED; CORONAVIRUS OC43-RESP PCR NOT DETECTED; HUMAN METAPNEUMOVIRUS NOT DETECTED; INFLUENZA A- RESP PCR PANEL NOT DETECTED; INFLUENZA B - RESP PCR PANEL NOT DETECTED; M. PNEUMONIAE- RESP PCR PANEL NOT DETECTED; PARAINFLUENZA VIRUS 1 NOT DETECTED; PARAINFLUENZA VIRUS 2 NOT DETECTED; PARAINFLUENZA VIRUS 3 NOT DETECTED; PARAINFLUENZA VIRUS 4 NOT DETECTED; RHINOVIRUS/ENTEROVIRUS NOT DETECTED; RSV- RESP PCR PANEL NOT DETECTED; SARS-CoV-2 -RESP PCR PANEL NOT DETECTED
[2023-02-08 11:29] LABS: BASOPHILS % (AUTO) 0.5 %; EOSINOPHILS % (AUTO) 0.1 %; HCT - HEMATOCRIT 41.8 % (37.0-47.0); HGB - HEMOGLOBIN 13.4 g/dL (12.0-16.0); LYMPHOCYTES % (AUTO) 6.6 %; MEAN CORPUSCULAR HEMOGLOBIN 30.3 pg (27.0-31.0); MEAN CORPUSCULAR HGB CONC 32.1 g/dL (32.0-36.0); MEAN CORPUSCULAR VOLUME 94.6 fL (81.0-99.0); MEAN PLATELET VOLUME 9.6 fL (7.9-10.8); MONOCYTES % (AUTO) 8.8 %; NEUTROPHILS % (AUTO) 78.5 %; PLT - PLATELET COUNT 210 10^3/uL (130-450); RED BLOOD COUNT 4.42 10^6/uL (4.20-5.40); RED CELL DISTRIBUTION WIDTH 17.3 % (12.0-15.0); WHITE BLOOD COUNT 15.3 x10^3/uL (4.8-10.8)
[2023-02-08 11:36] LABS: ABNORMAL LYMPHS % (MANUAL) 0 %
[2023-02-08 11:40] LABS: INR 1.4 (0.8-1.2)
--- NOTE | 2023-02-08 11:40 | CT Report ---
PROCEDURE: HEAD WO INDICATIONS: ALOC TECHNIQUE: Noncontrast 4.5 mm thick angled axial sections acquired from the foramen magnum to the vertex. For r adiation dose reduction, the following was used: automated exposure control, adjustment of mA and/or kV according to patient size. COMPARISON: CT head 02/20/2013. FINDINGS: Image quality: Excellent. CSF spaces: Basal cisterns are patent. No extra-axial fluid collections. Ventricles are normal in size and shape. Volume loss is seen. Brain: No midline shift. No intracranial masses or hemorrhage. Villarreal-white matter interface is norm al. Skull and face: Calvarium and visualized facial bones are intact, without suspicious lesions. Sinuses: Visualized sinuses and mastoids are clear. IMPRESSION: 1. No acute intracranial abnormality. 2. Microvascular ischemic disease and age-related cerebral volume loss. Reviewed by: Steve Crowley on 02/08/2023 11:38 AM PDT Approved by: Steve Crowley on 02/08/2023 11:38 AM PDT Station ID: [id number]
[2023-02-08 11:47] LABS: PARTIAL THROMBOPLASTIN TIME 26.2 secs (24.9-33.3)
[2023-02-08 11:49] LABS: ALBUMIN 2.8 g/dL (3.2-5.5); ALBUMIN/GLOBULIN RATIO 0.8 (1.0-2.2); BILIRUBIN,TOTAL 2.5 mg/dL (0.2-1.0); CREATININE 0.9 mg/dL (0.4-1.0); POTASSIUM 4.2 mmol/L (3.5-5.0); TOTAL PROTEIN 6.1 g/dL (6.7-8.2)
[2023-02-08 11:51] LABS: BAND NEUTROPHILS % (MANUAL) 4 %; DIFFERENTIAL COMMENT MANUAL DIFFERENTIAL; LYMPHOCYTES # (MANUAL) 1.4 10^3/uL (1.5-3.5); LYMPHOCYTES % (MANUAL) 9 %; MONOCYTES # (MANUAL) 1.2 10^3/uL (0.0-1.0); NEUTROPHILS # (MANUAL) 12.7 10^3/uL (1.5-6.6); NUCLEATED RBC (MANUAL) 3 %; PLATELET ESTIMATE, MANUAL NORMAL (130-450,000) (NORMAL); PLATELET MORPHOLOGY NORMAL APPEARANCE (NORMAL); RBC MORPHOLOGY (MULTIPLE) 1+ POLYCHROMASIA (NORMAL)
[2023-02-08 11:54] LABS: LACTIC ACID, VENOUS 6.6 mmol/L (0.5-2.2)
[2023-02-08] MEDS ORDERED: iohexoL-300 100 ML VIAL IVP ONE (12:11)
--- NOTE | 2023-02-08 12:36 | CT Report ---
PROCEDURE: HEAD W INDICATIONS: sepsis .lung cancer CONTRAST: 100ml omni 300 TECHNIQUE: 4.5 mm thick angled axial sections acquired from the foramen magnum to the vertex after the administr ation of intravenous contrast. For radiation dose reduction, the following was used: automated expo sure control, adjustment of mA and/or kV according to patient size. COMPARISON: CT of the head dated 02/08/2023. FINDINGS: Image quality: Excellent. CSF Spaces: Basal cisterns are patent. No extra-axial fluid collections. Ventricles are normal in size and shape. Brain: No midline shift. No intracranial bleeds or masses. No abnormal intracranial enhancement. Villarreal-white interface appears normal. Subcortical and periventricular hypodensities are consistent wit h microvascular ischemic disease and age-related cerebral volume loss. Skull and face: Calvarium and visualized facial bones appear intact, without suspicious lesions. Sinuses: Visualized sinuses and mastoids are clear. IMPRESSION: 1. No acute intracranial abnormality. 2. Microvascular ischemic disease and age-related cerebral volume loss. 3. No evidence of metastatic disease to the brain. No abnormal post contrast enhancement. Reviewed by: Steve Crowley on 02/08/2023 12:35 PM PDT Approved by: Steve Crowley on 02/08/2023 12:35 PM PDT Station ID: [id number]
--- NOTE | 2023-02-08 12:40 | CT Report ---
PROCEDURE: ABDOMEN/PELVIS W INDICATIONS: sepsis,lung cancer CONTRAST: 100ml omni 300 TECHNIQUE: After the administration of contrast, 5 mm thick sections acquired from the diaphragms to the symphys is. 5 mm thick coronal and sagittal reformats were acquired. For radiation dose reduction, the foll owing was used: automated exposure control, adjustment of mA and/or kV according to patient size. COMPARISON: 02/04/2023. FINDINGS: Image quality: Excellent. Lung bases and heart: See separately dictated CT of the chest. Liver: No solid mass. Gallbladder and biliary tree: Normal gallbladder Spleen: No splenomegaly. Pancreas: No pancreatic ductal dilation. Adrenals: No adrenal nodule. Kidneys and ureters: No hydronephrosis. No renal cystic lesion which requires follow up. No solid mas s. Bowel and peritoneum: No bowel distension. No pathologic free fluid. Increased stool consistent with constipation diverticulosis without evidence of acute diverticulitis. Lymph nodes: No central or retroperitoneal adenopathy. Vessels: No infrarenal aortic aneurysm. PELVIS Reproductive organs: Unremarkable. Bladder: No abnormal wall thickening, accounting for underdistension. Pelvic lymph nodes: No pelvic adenopathy by size criteria. Bones: No aggressive osseous abnormality. Other: No significant ventral or inguinal hernia. IMPRESSION: No acute abdominal or pelvic abnormality. Reviewed by: Steve Crowley on 02/08/2023 12:39 PM PDT Approved by: Steve Crowley on 02/08/2023 12:39 PM PDT Station ID: [id number]
--- NOTE | 2023-02-08 12:43 | CT Report ---
PROCEDURE: CHEST W INDICATIONS: sepsis,lung cancer CONTRAST: 100ml omni 300 TECHNIQUE: After the administration of intravenous contrast, 1 mm axial images were acquired from the pulmonary apices through the posterior costophrenic angles. Axial 5 mm soft tissue kernel reconstructions were performed as well as 8 mm axial MIP and coronal and sagittal 5 mm reformations. For radiation dose reduction, the following was used: automated exposure control, adjustment of mA and/or kV according to patient size. COMPARISON: 02/04/2023. FINDINGS: Image quality: Excellent. Lungs and pleura: Right lung lobe density mass posteriorly extending from the hilum centrally to the right apex posteriorly. The appearance is similar compared to the prior study on 02/04/2023. No pleural effusions. No pneumothorax. No suspicious pulmonary nodules which require follow up. Mediastinum: Heart size is normal. No pericardial effusions. Mediastinal adenopathy is unchanged comp ared to prior CT. Chest wall and lower neck: Thyroid is unremarkable. No axillary or supraclavicular adenopathy by size . Bones: No aggressive osseous abnormality. Upper Abdomen: Unremarkable. IMPRESSION: Right lung mass is unchanged compared to the prior study on 02/04/2023. Mediastinal adenopa thy is also unchanged. No significant interval change. Reviewed by: tSeve Crowley on 02/08/2023 12:42 PM PDT Approved by: Steve Crowley on 02/08/2023 12:42 PM PDT Station ID: [id number]
[2023-02-08] MEDS ORDERED: ONDANSETRON 4 MG/2 ML VIAL IVP PRN (12:59)
[2023-02-08] MEDS ORDERED: ALBUTEROL NEB 2.5 MG/3 ML INH PRN (12:59)
[2023-02-08] MEDS ORDERED: MORPHINE 2 MG/ML CARPUJECT IVP PRN (12:59)
[2023-02-08 13:21] LABS: LACTIC ACID, VENOUS 4.8 mmol/L (0.5-2.2)
[2023-02-08] MEDS: PANTOPRAZOLE 40 MG VIAL IVP SCH (13:49)
[2023-02-08] MEDS ORDERED: SODIUM CHLORIDE 0.9% 500 ML IV ONE (15:21)
--- NOTE | 2023-02-08 15:33 | HISTORY & PHYSICAL EXAMINATION ---
Chief Complaint - Chief Complaint Chief Complaint: Altered mental status History of Present Illness - Admitted From Admitted From:: ER - History Obtained From Records Reviewed: [facility] ER records History obtained from: Family - History of Present Illness HPI Comment/Other: Is a 72-year-old female who was recently diagnosed with small cell lung cancer. She has been seen at [facility] and is to be scheduled for initiation of chemotherapy. Over the past week she has had increasing problems with lethargy and not feeling well. She has been getting more confused recently over the past week. She did have a port placed about 4 days ago. But her symptoms antedated the placement of the port. This morning she was significa ntly weak obtunded would not appropriately able to answer questions or speak. notes at 1 point yesterday she felt and was sweaty as if she had a fever however he notes that her extremities were cold to the touch. Patient presented to the emergency room here at [facility] for further evaluation and treatment. Patient's evaluation in the emergency room included a temp of 36.5 axillary heart rate of 150 sinus tachycardia respiratory rate of 35 blood pressure of 109/86 with O2 sats at 98% unclear what supplementation she was getting at that point.Initial lab work revealed white count of 14.1 hemoglobin of 14.2 platelet count of 252. Sed rate of 14.1 INR 1.3. Blood glucose was 78. Sodium is 137 potassium 4.8 chloride 96 bicarb 19 anion gap 22 BUN 28 creatinine 1.1 with calculated GFR 49 lactic acid was 9.1 calcium 12.1 AST 380 ALT 160 alkaline phosphatase 532 total protein 7.4 albumin 3.2 ABG done in the emergency room with its not clear how much supplemental oxygen was at that time but pH was 7.43 PCO2 27.9 PO2 56.6 bicarb 18.2. Respiratory PCR was negative. History - Past Medical History Cardiovascular: reports: None Respiratory: reports: None, Other Neuro: reports: None Endocrine/Autoimmune: reports: Other GI: reports: Diverticulitis, Other : reports: None, Other HEENT: reports: Chronic vision loss Psych: reports: Depression, Anxiety, Panic attacks, ADD/ADHD Musculoskeletal: reports: None Derm: reports: None MRSA Hx?: No - Past Surgical History General: reports: Colonoscopy, Other Ortho: reports: Spine surgery, Other /[employer]: reports: Dilation and currettage, Tubal ligation, Hysterectomy, Oophrectomy HEENT: reports: Cataracts - POLST Patient has POLST: No Meds/Allgy - Home Medications Home Medications: Ambulatory Orders Medication Instructions Recorded Confirmed Divalproex Sodium [Depakote] 250 mg PO DAILY 10/08/16 02/08/23 Venlafaxine HCl [Effexor Xr] 150 mg PO DAILY 10/08/16 02/08/23 ARIPiprazole [Abilify] 5 mg PO DAILY 12/21/22 02/08/23 Dextroamphetamine/Amphetamine 5 mg PO DAILY 12/21/22 02/08/23 [Dextroamp-Amphetamine 5 mg Tab] Estradiol [Vagifem] 10 mcg VG Q7D 12/21/22 02/08/23 Acetaminophen [Tylenol] 650 mg PO Q6H PRN 02/03/23 02/08/23 Aspirin [Aspirin EC] 81 mg PO DAILY 02/08/23 02/08/[address] [Depakote Dr] 500 mg PO QPM 02/08/23 02/08/23 Venlafaxine ER [Effexor ER] 75 mg PO QPM 02/08/23 02/08/23 - Allergies Allergies/Adverse Reactions: Allergies Allergy/AdvReac Type Severity Reaction Status Date / Time bupropion [From Wellbutrin] Allergy Unknown Verified 02/08/23 09:56 citalopram [From Celexa] Allergy Unknown Verified 02/08/23 09:56 escitalopram [From Lexapro] Allergy Unknown Verified 02/08/23 09:56 estrogens, conjugated Allergy Unknown Verified 02/08/23 09:56 [From Premarin] quetiapine [From Seroquel] Allergy Unknown Verified 02/08/23 09:56 Sulfa (Sulfonamide Allergy Itching Verified 02/08/23 09:56 Antibiotics) tetracycline [Tetracycline] Allergy Respiratory Verified 02/08/23 09:56 Review of Systems - Other Findings Other Findings: Patient was not able to give us a review of systems due to her obtundation. HPI for what information was given by family members at bedside. Prior Level of Functionality: Initially no restrictions Exam - Vital Signs Reviewed Vital Signs: Yes Vital Signs: Vital Signs x48h Temp Pulse Pulse Resp BP BP Pulse Ox 02/08/23 15:00 147 H 36 H 127/83 H 100 02/08/23 14:44 147 H 34 H 127/85 H 100 02/08/23 14:30 138 H 30 H 126/89 H 100 02/08/23 14:14 37.2 C 145 H 29 H 135/92 H 100 02/08/23 14:01 135 H 22 141/95 H 95 02/08/23 13:36 138 H 30 H 161/95 H 96 02/08/23 13:07 134 H 32 H 159/97 H 95 02/08/23 12:37 130 H 30 H 158/94 H 93 02/08/23 12:32 130 H 19 162/89 H 92 02/08/23 12:16 129 H 27 H 162/89 H 93 02/08/23 12:10 128 H 32 H 161/86 H 91 L 02/08/23 11:30 139/88 H 02/08/23 10:45 55 L 12 144/88 H 100 02/08/23 10:30 136 H 38 H 144/88 H 94 02/08/23 10:00 148 H 35 H 123/86 H 99 02/08/23 09:51 36.5 C 150 H 35 H 109/86 H 98 - Physical Exam General Appearance: positive: Lethargic Eyes Bilateral: positive: Normal inspection Neck: positive: Nml inspection Respiratory: positive: Other (Tachypneic) Cardiovascular: positive: Tachycardia Abdomen: positive: Non-tender, No distention Skin: positive: Other (Patient with mottled extremities bilaterally) Extremities: positive: Other (Mottled extremities) Neurologic/Psychiatric: positive: Other (Patient seems to be able to follow some simple commands but does not speak will kind to nod her head briefly to some questions.) Sepsis Event Note (H) - Evaluation Current Stage of Sepsis: Severe sepsis Possible source of Sepsis: positive: Unknown - Sepsis Criteria Sepsis Criteria: Recorded Heart Rate greater than 90 bpm, Recorded Respiratory Rate greater than 20, Respiratory: Increasing oxygen requirements, Renal: urine output less than 0.5ml/kg/hr for 2 hours or creatinine gr Conclusion/Plan - Problem List (1) Acute encephalopathy Conclusion/Plan: Acute encephalopathy present thought to be septic and/or metabolic in etiologyCT of head imaging with and without contrast did not reveal any acute abnormalities. Patient recently had MRI per ER MD and did not show any abnormalities in the head. (2) Lactic acid acidosis Conclusion/Plan: Most likely secondary to sepsis and will monitor every 3 hours lactic acid levels per protocol. Will bolus and proceed with normal saline hydration. (3) Lung cancer Conclusion/Plan: Patient was planning to get chemotherapy soon which clearly will be on hold until sepsis has resolved. Qualifiers: Laterality: right Lung location: middle lobe of lung Qualified Code(s): C34.2 - Malignant neoplasm of middle lobe, bronchus or lung (4) Sepsis Conclusion/Plan: Acute sepsis with tachycardia, currently not hypotensive at this point but certainly is dehydrated, acute encephalopathy present, leukocytosis, lactic acidosis present. No clear etiology at this point so is being covered with IV cefepime IV vancomycin and IV Flagyl. Qualifiers: Sepsis type: sepsis due to unspecified organism Sepsis acute organ dysfunction status: with acute organ dysfunction Severe sepsis acute organ dysfunction type: encephalopathy Severe sepsis shock status: without septic shock Qualified Code(s): A41.9 - Sepsis, unspecified organism; R65.20 - Severe sepsis without septic shock; G93.40 - Encephalopathy, unspecified (5) Hypercalcemia Conclusion/Plan: Possibly related to dehydration we will go ahead and give aggressive IV fluid hydration and monitor calcium level. - Lab Results Lab results reviewed: Yes Fish Bones: 02/08/23 11:24 02/08/23 11:24 - Diagnostic Imaging Results Diagnostic Imaging Results: positive: Final report reviewed
[2023-02-08] MEDS ORDERED: SODIUM CHLORIDE 0.9% 1,000 ML IV ONE (16:00)
[2023-02-08 16:21] LABS: LACTIC ACID, VENOUS 6.2 mmol/L (0.5-2.2)
[2023-02-08] MEDS: SODIUM CHLORIDE 0.9% 1,000 ML IV SCH (16:54)
[2023-02-08] MEDS: SODIUM CHLORIDE FLUSH 0.9% 10 ML SYRINGE IVP SCH (16:54)
[2023-02-08] MEDS: CEFEPIME 2 GM in SODIUM CHLORIDE 0.9% MINIBAG 100 ML IV SCH (18:12)
[2023-02-08] MEDS ORDERED: DEXTROSE 50% ABBOJECT 25 GM/50 ML SYRINGE IVP ONE ×2 (18:32→21:31)
[2023-02-08] MEDS ORDERED: DEXTROSE 50% ABBOJECT 25 GM/50 ML SYRINGE ONE (18:33)
[2023-02-08] MEDS: ACETAMINOPHEN 650 MG SUPP PR PRN ×2 (18:47→22:12)
[2023-02-08 19:30] LABS: LACTIC ACID, VENOUS 5.2 mmol/L (0.5-2.2)
[2023-02-08] MEDS: metroNIDAZOLE 500 MG/100 ML 500 MG/100 ML BAG IV SCH (20:05)
[2023-02-08] MEDS: VANCOMYCIN INJ 1 GM in SODIUM CHLORIDE 0.9% 250 ML IV SCH (21:03)
[2023-02-08] MEDS: HEPARIN 5,000 UNIT/ML VIAL SUBQ SCH (21:29)
[2023-02-08] MEDS: DEXTROSE 5% 1,000 ML IV SCH (22:37)
[2023-02-08 23:04] LABS: LACTIC ACID, VENOUS 4.9 mmol/L (0.5-2.2)
[2023-02-09] MEDS: SODIUM CHLORIDE 0.9% 1,000 ML IV SCH ×3 (02:16→18:12)
[2023-02-09] MEDS: SODIUM CHLORIDE FLUSH 0.9% 10 ML SYRINGE IVP SCH ×3 (03:07→18:13)
[2023-02-09] MEDS: CEFEPIME 2 GM in SODIUM CHLORIDE 0.9% MINIBAG 100 ML IV SCH ×3 (03:07→18:12)
[2023-02-09] MEDS: ACETAMINOPHEN 650 MG SUPP PR PRN ×2 (04:16→04:21)
[2023-02-09] MEDS: metroNIDAZOLE 500 MG/100 ML 500 MG/100 ML BAG IV SCH ×3 (04:16→20:06)
[2023-02-09 05:09] LABS: LACTIC ACID, VENOUS 4.1 mmol/L (0.5-2.2)
[2023-02-09 05:10] LABS: BASOPHILS % (AUTO) 0.4 %; HCT - HEMATOCRIT 38.3 % (37.0-47.0); HGB - HEMOGLOBIN 12.5 g/dL (12.0-16.0); MEAN CORPUSCULAR HEMOGLOBIN 30.1 pg (27.0-31.0); MEAN CORPUSCULAR HGB CONC 32.6 g/dL (32.0-36.0); MEAN CORPUSCULAR VOLUME 92.3 fL (81.0-99.0); MEAN PLATELET VOLUME 10.4 fL (7.9-10.8); MONOCYTES % (AUTO) 10.7 %; NEUTROPHILS % (AUTO) 76.5 %; PLT - PLATELET COUNT 141 10^3/uL (130-450); RED BLOOD COUNT 4.15 10^6/uL (4.20-5.40); RED CELL DISTRIBUTION WIDTH 17.4 % (12.0-15.0); WHITE BLOOD COUNT 14.5 x10^3/uL (4.8-10.8)
[2023-02-09 05:14] LABS: SLIDE REVIEW? Indicated
[2023-02-09 05:48] LABS: ABNORMAL LYMPHS % (MANUAL) 0 %
[2023-02-09 05:50] LABS: BAND NEUTROPHILS % (MANUAL) 5 %; DIFFERENTIAL COMMENT MANUAL DIFFERENTIAL; LYMPHOCYTES # (MANUAL) 0.9 10^3/uL (1.5-3.5); LYMPHOCYTES % (MANUAL) 6 %; METAMYELOCYTES % (MANUAL) 2 %; MONOCYTES # (MANUAL) 1.5 10^3/uL (0.0-1.0); MYELOCYTES % (MANUAL) 1 %; NEUTROPHILS # (MANUAL) 11.7 10^3/uL (1.5-6.6); NUCLEATED RBC (MANUAL) 3 %; PLATELET ESTIMATE, MANUAL NORMAL (130-450,000) (NORMAL); PLATELET MORPHOLOGY NORMAL APPEARANCE (NORMAL); RBC MORPHOLOGY (MULTIPLE) 1+ POLYCHROMASIA (NORMAL); WBC MORPHOLOGY (MULTIPLE) NORMAL APPEARANCE (NORMAL)
[2023-02-09 05:55] LABS: ALBUMIN 2.6 g/dL (3.2-5.5); ALBUMIN/GLOBULIN RATIO 0.8 (1.0-2.2); BILIRUBIN,TOTAL 2.5 mg/dL (0.2-1.0); CALCIUM 10.5 mg/dL (8.5-10.3); CREATININE 0.7 mg/dL (0.4-1.0); MAGNESIUM 1.9 mg/dL (1.7-2.8); POTASSIUM 3.3 mmol/L (3.5-5.0); TOTAL PROTEIN 5.8 g/dL (6.7-8.2)
[2023-02-09] MEDS: PANTOPRAZOLE 40 MG VIAL IVP SCH (06:08)
[2023-02-09] MEDS: POTASSIUM CHLOR 10 MEQ/100 ML 10 MEQ/100 ML BAG IV SCH ×3 (06:17→08:19)
[2023-02-09] MEDS: VANCOMYCIN INJ 1 GM in SODIUM CHLORIDE 0.9% 250 ML IV SCH ×2 (08:19→21:16)
[2023-02-09] MEDS: DEXTROSE 5% 1,000 ML IV SCH ×2 (08:19→18:12)
[2023-02-09] MEDS: HEPARIN 5,000 UNIT/ML VIAL SUBQ SCH ×2 (08:20→21:11)
[2023-02-09 08:21] LABS: ABG PCO2 29 mmHg (34-45); ABG PH 7.46 (7.35-7.45)
[2023-02-09 08:22] LABS: ABG BASE EXCESS -2.8 mmol/L (-2.0-3.0); ABG HCO3 20.1 mmol/L (22.0-26.0); ABG OXYGEN SATURATION 90 % (94-98); ABG PO2 58 mmHg (80-100); ALLEN TEST POSITIVE
[2023-02-09 08:25] LABS: LACTIC ACID, VENOUS 3.4 mmol/L (0.5-2.2)
[2023-02-09] MEDS ORDERED: POTASSIUM PHOSPHATE 15 MMOL in SODIUM CHLORIDE 0.9% 250 ML IV ONE (08:33)
[2023-02-09 11:48] LABS: LACTIC ACID, VENOUS 4.2 mmol/L (0.5-2.2)
--- NOTE | 2023-02-09 12:10 | PHARMACY PROGRESS NOTE ---
- Best Possible Medication History Admit Date and Time: 02/08/23 1259 Processed by: Pharmacy Medication History completed: Yes Patient Interview: Pt unable to participate Secondary Source(s): Physician records, Pharmacy records, Insurance records As the person ultimately responsible for medication therapy, providers are able to order a medication from an existing home medication list in [facility] via the "Reconcile Routine" prior to Confirmation of that medication by customer support technician. Such practice is discouraged except when the physician, in their clinical judgment, deems that a medical need exists for a medication without regard to previous use.
[2023-02-09] MEDS: ARIPiprazole 5 MG TABLET NG SCH (14:11)
[2023-02-09] MEDS: VENLAFAXINE 37.5 MG TABLET NG SCH ×2 (14:11→21:18)
[2023-02-09] MEDS: VALPROATE 250 MG/5 ML SOLUTION UDC NG SCH ×2 (14:12→21:17)
--- NOTE | 2023-02-09 14:25 | XRAY Report ---
PROCEDURE: Chest for Line Placement INDICATIONS: NGT placement TECHNIQUE: One view of the chest was acquired. COMPARISON: 02/08/2023 FINDINGS: Surgical changes and devices: NGT tip is in the gastric lumen. Left-sided portacatheter is present, tip of which is at the cavoatrial junction. Cervical fusion hardware. Lungs and pleura: No pleural effusions or pneumothorax. Severe airspace opacity within the right mid lung. Mediastinum: Mediastinal contours appear normal. Heart size is normal. Bones and chest wall: No suspicious bony lesions. Overlying soft tissues appear unremarkable. IMPRESSION: Right lung pneumonia. Follow-up PA and lateral chest x-rays or chest CT is recommended to ensure resolution, and to exclude underlying neoplasm. Reviewed by: Osmar Alvares MD on 02/09/2023 2:24 PM PDT Approved by: Osmar Alvares MD on 02/09/2023 2:24 PM PDT Station ID: [id number]
[2023-02-09 15:10] LABS: LACTIC ACID, VENOUS 3.8 mmol/L (0.5-2.2)
--- NOTE | 2023-02-09 16:37 | PHARMACY PROGRESS NOTE ---
- Therapy Status Vancomycin regimen day #: 2 Therapy status: Awaiting steady state Basis for treatment: Empirical Treatment indication: SEPSIS Trough goal: 15-20 Concurrent antibiotics: CEFEPIME, FLAGYL - LIUDMILA Risk Risk level for Acute Kidney Injury: Moderate Acute Kidney Injury risk factors: IV contrast within 72 hrs, Goal trough >15, Admission to ICU, Sepsis - Monitoring and Recommendation Clinical response to treatment: I&O Previous 24 hours 02/07/23 02/08/23 02/09/23 23:59 23:59 23:59 Intake Total 3150 3931.25 Output Total 240 750 Balance 2910 3181.25 Lab Results 02/09/23 02/08/23 02/08/23 04:31 11:24 11:24 ESR 20 BUN 30 H 27 H Creatinine 0.7 0.9 Estimated GFR (MDRD) 82 L 62 L 02/08/23 09:54 ESR BUN 28 H Creatinine 1.1 H Estimated GFR (MDRD) 49 L Cultures 02/08/23 10:22 Urine,Catheterized Urine Culture - Final No growth 02/08/23 09:54 Blood - Left Arm Blood Culture - Preliminary NO GROWTH AFTER 1 DAY 02/08/23 09:54 Blood - Right Arm Blood Culture - Preliminary NO GROWTH AFTER 1 DAY Monitoring plan: Daily serum creatinine Areas for additional monitoring: IV to PO when appropriate, Therapy de- escalation based on culture results
--- NOTE | 2023-02-09 16:46 | PROVIDER PROGRESS NOTE ---
Assessment/Plan - Problem List (1) Acute encephalopathy Assessment/Plan: Minimally improved however does seem to respond a bit to what we are saying as and she understands it as opposed to yesterday did not seem to be aware.Thought to be secondary to sepsis and/or metabolic in etiology. (2) Lactic acid acidosis Assessment/Plan: Has been improving over the past day. Continue to monitor. Per protocol. (3) Lung cancer Qualifiers: Laterality: right Lung location: middle lobe of lung Qualified Code(s): C34.2 - Malignant neoplasm of middle lobe, bronchus or lung Assessment/Plan: To proceed with follow-up of her oncologist when medically stable. She was to recently start on chemotherapy per oncologist. (4) Sepsis Qualifiers: Sepsis type: sepsis due to unspecified organism Sepsis acute organ dysfunction status: with acute organ dysfunction Severe sepsis acute organ dysfunction type: encephalopathy Severe sepsis shock status: without septic shock Qualified Code(s): A41.9 - Sepsis, unspecified organism; R65.20 - Severe sepsis without septic shock; G93.40 - Encephalopathy, unspecified Assessment/Plan: Continue with broad-spectrum antibiotics of cefepime, vancomycin, Flagyl. So far urine culture is negative and blood cultures x2 is negative. No source currently identified. (5) Hypercalcemia Assessment/Plan: Improving with IV fluids. - Current Meds Current Meds: Current Medications Generic Name Dose Route Start Last Admin Trade Name Freq PRN Reason Stop Dose Admin Acetaminophen 650 mg 02/08/23 18:34 02/09/23 04:21 Acetaminophen 650 Mg Supp OH 650 mg Q6HR PRN Administration Pain or Fever > 38C (100.4F) Aripiprazole 5 mg 02/09/23 14:00 02/09/23 14:11 Aripiprazole 5 Mg Tablet NG 5 mg DAILY EUGENE Administration Heparin Sodium (Porcine) 5,000 unit 02/08/23 21:00 02/09/23 08:20 Heparin 5,000 Unit/Ml Vial SUBQ 5,000 unit BID EUGENE Administration Cefepime HCl 2 gm/ Sodium 100 mls @ 200 mls/hr 02/08/23 19:00 02/09/23 12:00 Chloride IV Infused Q8H EUGENE Infusion Vancomycin HCl 1 gm/ Sodium 250 mls @ 166.667 mls/hr 02/08/23 21:00 02/09/23 10:11 Chloride IV Infused BID EUGENE Infusion Metronidazole 500 mg in 100 mls @ 100 mls/hr 02/08/23 20:00 02/09/23 13:11 Flagyl 500 Mg/100 Ml IV Infused Q8H EUGENE Infusion Sodium Chloride 1,000 mls @ 125 mls/hr 02/08/23 16:00 02/09/23 08:19 Normal Saline 0.9% IV 125 mls/hr .Q8H EUGENE Administration Dextrose 1,000 mls @ 100 mls/hr 02/08/23 22:00 02/09/23 08:19 D5w IV 100 mls/hr .Q10H EUGENE Administration Pantoprazole Sodium 40 mg 02/08/23 14:00 02/09/23 06:08 Pantoprazole 40 Mg Vial IVP 40 mg QDAC EUGENE Administration Sodium Chloride 10 ml 02/08/23 17:00 02/09/23 08:19 Sodium Chloride Flush 0.9% 10 Ml Syringe IVP 10 ml 0100,0900,1700 EUGENE Administration Valproic Acid 250 mg 02/09/23 14:00 02/09/23 14:12 Valproate 250 Mg/5 Ml Solution Udc NG 250 mg DAILY EUGENE Administration Venlafaxine HCl 75 mg 02/09/23 14:00 02/09/23 14:11 Venlafaxine 37.5 Mg Tablet NG 75 mg TID EUGENE Administration - Lab Result Fish Bone Diagrams: 02/09/23 04:31 02/09/23 04:31 - Additional Planning My Orders: My Active Orders 02/08/23 16:00 Sodium Chloride 0.9% [Normal Saline 0.9%] 1,000 ml IV 125 mls/hr 02/08/23 17:00 Sodium Chloride Flush 0.9% [Normal Saline Flush 0.9%] 10 ml IVP 0100,0900,1700 02/08/23 18:34 Acetaminophen [Tylenol] 650 mg OH Q6HR PRN 02/08/23 18:35 Initiate Hypoglycemia Protocol [RC] .protocol 02/08/23 19:00 Cefepime 2 gm Sodium Chloride 0.9% Minibag [Normal Saline 0.9% Minibag] 100 ml IV Q8H 02/08/23 20:00 metroNIDAZOLE 500 MG/100 ML [Flagyl 500 mg/100 ml] 500 mg in 100 ml IV Q8H 02/08/23 21:00 Heparin [Heparin Sodium (Porcine)] 5,000 unit SUBQ BID Vancomycin Inj [Vancomycin] 1 gm Sodium Chloride 0.9% [Normal Saline 0.9%] 250 ml IV BID 02/08/23 22:00 Dextrose 5% [D5w] 1,000 ml IV 100 mls/hr 02/09/23 07:28 Echo Transthoracic Complete [ECHO] Routine 02/09/23 14:00 ARIPiprazole [Abilify] 5 mg NG DAILY Valproate Oral Soln [Valproic Acid Oral Soln] 250 mg NG DAILY Venlafaxine [Effexor] 75 mg NG TID 02/09/23 14:45 LACTIC ACID, VENOUS [CHEM] Stat 02/09/23 21:00 Valproate Oral Soln [Valproic Acid Oral Soln] 500 mg NG QPM 02/10/23 05:00 CBC - COMP BLD CT W/AUTO DIFF [HEME] DAILYLAB COMPREHENSIVE METABOLIC PANEL [CHEM] DAILYLAB MAGNESIUM [CHEM] DAILYLAB TROPONIN I HIGH SENSITIVITY [IAI] DAILYLAB 02/11/23 05:00 CBC - COMP BLD CT W/AUTO DIFF [HEME] DAILYLAB COMPREHENSIVE METABOLIC PANEL [CHEM] DAILYLAB MAGNESIUM [CHEM] DAILYLAB TROPONIN I HIGH SENSITIVITY [IAI] DAILYLAB 02/12/23 05:00 CBC - COMP BLD CT W/AUTO DIFF [HEME] DAILYLAB COMPREHENSIVE METABOLIC PANEL [CHEM] DAILYLAB MAGNESIUM [CHEM] DAILYLAB TROPONIN I HIGH SENSITIVITY [IAI] DAILYLAB 02/13/23 05:00 TROPONIN I HIGH SENSITIVITY [IAI] DAILYLAB Objective Vital Signs: Vital Signs - 24 hr 02/08/23 02/08/23 02/08/23 17:00 18:00 18:35 Temperature 37.7 C 40.2 C H Heart Rate [ 137 H 133 H 138 H Monitoring electrodes] Respiratory 34 H 36 H 35 H Rate Blood Pressure 144/86 H 125/74 130/82 H [Right Brachial artery] O2 Saturation 94 95 94 If not protocol : Oxygen Flow, liters/minute 02/08/23 02/08/23 02/08/23 19:00 20:00 21:00 Temperature 39.9 C H 40.1 C H 40.2 C H Heart Rate [ 141 H 142 H 141 H Monitoring electrodes] Respiratory 35 H 34 H 35 H Rate Blood Pressure 145/87 H 143/88 H 139/87 H [Right Brachial artery] O2 Saturation 95 94 93 If not protocol : Oxygen Flow, liters/minute 02/08/23 02/08/23 02/08/23 22:00 22:47 23:00 Temperature 39.1 C H 39.0 C H Heart Rate [ 137 H 128 H 129 H Monitoring electrodes] Respiratory 32 H 28 H 28 H Rate Blood Pressure 142/90 H 143/90 H 149/92 H [Right Brachial artery] O2 Saturation 92 95 96 If not protocol 2 : Oxygen Flow, liters/minute 02/09/23 02/09/23 02/09/23 00:00 01:00 02:00 Temperature 38.3 C H 38.1 C H 38.3 C H Heart Rate [ 122 H 120 H 118 H Monitoring electrodes] Respiratory 25 H 28 H 28 H Rate Blood Pressure 140/79 H 148/79 H 157/87 H [Right Brachial artery] O2 Saturation 96 95 97 If not protocol 2 2 2 : Oxygen Flow, liters/minute 02/09/23 02/09/23 02/09/23 03:00 04:00 05:00 Temperature 38.0 C H 38.2 C H 38.2 C H Heart Rate [ 113 H 114 H 114 H Monitoring electrodes] Respiratory 24 24 26 H Rate Blood Pressure 150/88 H 143/83 H 154/79 H [Right Brachial artery] O2 Saturation 97 97 96 If not protocol 2 2 2 : Oxygen Flow, liters/minute 02/09/23 02/09/23 02/09/23 06:00 07:00 08:00 Temperature 38.3 C H 38.2 C H 38 C H Heart Rate [ 115 H 114 H 107 H Monitoring electrodes] Respiratory 26 H 25 H 26 H Rate Blood Pressure 140/82 H 136/87 H 130/73 [Right Brachial artery] O2 Saturation 96 97 94 If not protocol 2 : Oxygen Flow, liters/minute 02/09/23 02/09/23 02/09/23 09:00 10:00 11:00 Temperature 37.7 C 37.4 C 37.4 C Heart Rate [ 97 96 94 Monitoring electrodes] Respiratory 23 24 22 Rate Blood Pressure 122/69 128/71 107/80 [Right Brachial artery] O2 Saturation 95 96 94 If not protocol : Oxygen Flow, liters/minute 02/09/23 02/09/23 02/09/23 12:00 13:00 14:00 Temperature 37.1 C 37 C 36.9 C Heart Rate [ 92 88 96 Monitoring electrodes] Respiratory 23 22 20 Rate Blood Pressure 136/82 H 116/68 133/80 H [Right Brachial artery] O2 Saturation 93 94 93 If not protocol : Oxygen Flow, liters/minute 02/09/23 02/09/23 15:00 16:00 Temperature 36.9 C 36.9 C Heart Rate [ 90 92 Monitoring electrodes] Respiratory 21 21 Rate Blood Pressure 118/72 131/76 H [Right Brachial artery] O2 Saturation 92 92 If not protocol : Oxygen Flow, liters/minute Oxygen O2 Source Room air I&O (Last 24 Hrs): Intake and Output Totals x24h 02/07/23 02/08/23 02/09/23 23:59 23:59 23:59 Intake Total 3150 3931.25 Output Total 240 750 Balance 2910 3181.25 General: No acute distress, Other (Patient appears to be a bit more understanding of what were saying although she still is not speaking at this time.) HEENT: Atraumatic, PERRLA Neck: Supple Neuro: Disoriented Cardiovascular: Regular rate, No murmurs Respiratory: Breath sounds nml Abdomen: Normal bowel sounds, No tenderness Extremities: Other (There is significant improvement in her peripheral mottling today relative to yesterday) Skin: No rashes - Results Results: Laboratory Results WBC 14.5 x10^3/uL (4.8-10.8) H 02/09/23 04:31 RBC 4.15 10^6/uL (4.20-5.40) L 02/09/23 04:31 Hgb 12.5 g/dL (12.0-16.0) 02/09/23 04:31 Hct 38.3 % (37.0-47.0) 02/09/23 04:31 MCV 92.3 fL (81.0-99.0) 02/09/23 04:31 MCH 30.1 pg (27.0-31.0) 02/09/23 04:31 MCHC 32.6 g/dL (32.0-36.0) 02/09/23 04:31 RDW 17.4 % (12.0-15.0) H 02/09/23 04:31 Plt Count 141 10^3/uL (130-450) 02/09/23 04:31 MPV 10.4 fL (7.9-10.8) 02/09/23 04:31 Neut # (Auto) Not Reportable 02/09/23 04:31 Lymph # (Auto) Not Reportable 02/09/23 04:31 [place] # (Auto) Not Reportable 02/09/23 04:31 Eos # (Auto) Not Reportable 02/09/23 04:31 Baso # (Auto) Not Reportable 02/09/23 04:31 Absolute Nucleated RBC Not Reportable 02/09/23 04:31 Total Counted 100 02/09/23 04:31 Band Neuts % (Manual) 5 % (0-10) 02/09/23 04:31 Abnorm Lymph % (Manual) 0 % 02/09/23 04:31 Metamyelocytes % 2 % (-0) H 02/09/23 04:31 Myelocytes % 1 % (-0) H 02/09/23 04:31 Nucleated RBC % Not Reportable 02/09/23 04:31 Neutrophils # (Manual) 11.7 10^3/uL (1.5-6.6) H 02/09/23 04:31 Lymphocytes # (Manual) 0.9 10^3/uL (1.5-3.5) L 02/09/23 04:31 Monocytes # (Manual) 1.5 10^3/uL (0.0-1.0) H 02/09/23 04:31 Eosinophils # (Manual) 0.0 10^3/uL (0-0.7) 02/09/23 04:31 Basophils # (Manual) 0.0 10^3/uL (0-0.1) 02/09/23 04:31 Nucleated RBCs 3 % 02/09/23 04:31 Differential Comment MANUAL DIFFERENTIAL 02/09/23 04:31 Manual Slide Review Indicated 02/09/23 04:31 WBC Morphology NORMAL APPEARANCE (NORMAL) 02/09/23 04:31 Platelet Estimate NORMAL (130-450,000) (NORMAL) 02/09/23 04:31 Platelet Morphology NORMAL APPEARANCE (NORMAL) 02/09/23 04:31 RBC Morph Micro Appear 1+ POLYCHROMASIA (NORMAL) 02/09/23 04:31 ESR 20 mm/Hr (0-30) 02/08/23 11:24 PT 15.0 secs (9.9-12.6) H 02/08/23 11:24 INR 1.4 (0.8-1.2) H 02/08/23 11:24 APTT 26.2 secs (24.9-33.3) 02/08/23 11:24 Bld Gas Analysis Time 0810 02/09/23 08:10 Sample Site RIGHT RADIAL 02/08/23 10:55 ABG pH 7.46 (7.35-7.45) H 02/09/23 08:10 ABG pCO2 29 mmHg (34-45) L 02/09/23 08:10 ABG pO2 58 mmHg (80-100) L 02/09/23 08:10 ABG HCO3 20.1 mmol/L (22.0-26.0) L 02/09/23 08:10 ABG Total CO2 21.0 MMOL/L (21.0-29.0) 02/09/23 08:10 ABG O2 Saturation 90 % (94-98) L 02/09/23 08:10 ABG Base Excess -2.8 mmol/L (-2.0-3.0) L 02/09/23 08:10 Gonzales Test POSITIVE 02/09/23 08:10 Room Air YES 02/09/23 08:10 Sodium 138 mmol/L (135-145) 02/09/23 04:31 Potassium 3.3 mmol/L (3.5-5.0) L 02/09/23 04:31 Chloride 108 mmol/L (101-111) 02/09/23 04:31 Carbon Dioxide 21 mmol/L (21-32) 02/09/23 04:31 Anion Gap 9.0 (6-13) 02/09/23 04:31 BUN 30 mg/dL (6-20) H 02/09/23 04:31 Creatinine 0.7 mg/dL (0.4-1.0) 02/09/23 04:31 Estimated GFR (MDRD) 82 (>89) L 02/09/23 04:31 Glucose 141 mg/dL (70-100) H 02/09/23 04:31 POC Whole Bld Glucose 112 mg/dL (70 - 100) H 02/09/23 12:07 Lactic Acid 3.8 mmol/L (0.5-2.2) H* 02/09/23 14:45 Calcium 10.5 mg/dL (8.5-10.3) H 02/09/23 04:31 Phosphorus 1.7 mg/dL (2.5-4.6) L 02/09/23 07:59 Magnesium 1.9 mg/dL (1.7-2.8) 02/09/23 04:31 Total Bilirubin 2.5 mg/dL (0.2-1.0) H 02/09/23 04:31 AST 2964 IU/L (10-42) H 02/09/23 04:31 ALT 850 IU/L (10-60) H 02/09/23 04:31 Alkaline Phosphatase 362 IU/L (42-121) H 02/09/23 04:31 Troponin I High Sens 281.1 ng/L (2.3-14.8) H* 02/08/23 22:24 C-Reactive Protein 2.7 mg/dL (0-1.0) H 02/08/23 11:24 Total Protein 5.8 g/dL (6.7-8.2) L 02/09/23 04:31 Albumin 2.6 g/dL (3.2-5.5) L 02/09/23 04:31 Globulin 3.2 g/dL (2.1-4.2) 02/09/23 04:31 Albumin/Globulin Ratio 0.8 (1.0-2.2) L 02/09/23 04:31 Lipase 343 U/L (22-51) H 02/08/23 09:54 Urine Color DARK YELLOW 02/08/23 10:22 Urine Clarity HAZY (CLEAR) 02/08/23 10:22 Urine pH 6.0 PH (5.0-7.5) 02/08/23 10:22 Ur Specific [place] >=1.030 (1.002-1.030) H 02/08/23 10:22 Urine Protein 100 mg/dL (NEGATIVE) H 02/08/23 10:22 Urine Glucose (UA) NEGATIVE mg/dL (NEGATIVE) 02/08/23 10:22 Urine Ketones 15 mg/dL (NEGATIVE) H 02/08/23 10:22 Urine Occult Blood LARGE (NEGATIVE) H 02/08/23 10:22 Urine Nitrite NEGATIVE (NEGATIVE) 02/08/23 10:22 Urine Bilirubin NEGATIVE (NEGATIVE) 02/08/23 10:22 Urine Urobilinogen 4 E.U./dL (NORMAL) H 02/08/23 10:22 Ur Leukocyte Esterase NEGATIVE (NEGATIVE) 02/08/23 10:22 Urine RBC 11-25 /HPF (0-5) H 02/08/23 10:22 Urine WBC 4-5 /HPF (0-5) 02/08/23 10:22 Ur Squamous Epith Cells MANY Squamous (<= Few) H 02/08/23 10:22 Urine Bacteria Moderate /HPF (None Seen) H 02/08/23 10:22 Urine Mucus Marked Strands 02/08/23 10:22 Ur Microscopic Review INDICATED 02/08/23 10:22 Urine Culture Comments NOT INDICATED 02/08/23 10:22 Nasal Adenovirus (PCR) NOT DETECTED 02/08/23 09:54 Nasal B. parapertussis DNA (PCR) NOT DETECTED 02/08/23 09:54 Nasal Coronavir 229E PCR NOT DETECTED 02/08/23 09:54 Nasal Coronavir HKU1 PCR NOT DETECTED 02/08/23 09:54 Nasal Coronavir NL63 PCR NOT DETECTED 02/08/23 09:54 Nasal Coronavir OC43 PCR NOT DETECTED 02/08/23 09:54 Nasal Enterovir/Rhinovir PCR NOT DETECTED 02/08/23 09:54 Nasal Influenza B PCR NOT DETECTED 02/08/23 09:54 Nasal Influenza A PCR NOT DETECTED 02/08/23 09:54 Nasal Parainfluen 1 PCR NOT DETECTED 02/08/23 09:54 Nasal Parainfluen 2 PCR NOT DETECTED 02/08/23 09:54 Nasal Parainfluen 3 PCR NOT DETECTED 02/08/23 09:54 Nasal Parainfluen 4 PCR NOT DETECTED 02/08/23 09:54 Nasal RSV (PCR) NOT DETECTED 02/08/23 09:54 Nasal Screen MRSA (PCR) NEGATIVE (NEGATIVE) 02/08/23 13:44 Nasal B.pertussis DNA PCR NOT DETECTED 02/08/23 09:54 Nasal C.pneumoniae (PCR) NOT DETECTED 02/08/23 09:54 Octavio Human Metapneumo PCR NOT DETECTED 02/08/23 09:54 Nasal M.pneumoniae (PCR) NOT DETECTED 02/08/23 09:54 Nasal SARS-CoV-2 (PCR) NOT DETECTED 02/08/23 09:54 - Procedures Procedures: Procedures INSPECTION OF LOWER INTESTINAL TRACT, ENDO (10/08/16) Sepsis Event Note (H) - Evaluation Current Stage of Sepsis: Severe sepsis Possible source of Sepsis: positive: Unknown - Sepsis Criteria Sepsis Criteria: Recorded Heart Rate greater than 90 bpm, Recorded Respiratory Rate greater than 20, Respiratory: Increasing oxygen requirements, Renal: urine output less than 0.5ml/kg/hr for 2 hours or creatinine gr ABX Reporting Has patient been on IV antibiotics over the past 48 hours?: Yes
[2023-02-09 18:04] LABS: VBG PH 7.438 (7.31-7.41)
[2023-02-09 18:05] LABS: CALCIUM, IONIZED 1.36 mmol/L (1.15-1.33)
[2023-02-09 18:15] LABS: MAGNESIUM 1.7 mg/dL (1.7-2.8); PHOSPHORUS 2.2 mg/dL (2.5-4.6); POTASSIUM 3.6 mmol/L (3.5-5.0)
[2023-02-09 18:17] LABS: LACTIC ACID, VENOUS 4.2 mmol/L (0.5-2.2)
[2023-02-09] MEDS ORDERED: POTASSIUM CHLORIDE 20 MEQ/15 ML UDC PO ONE (18:52)
[2023-02-09] MEDS ORDERED: MAGNESIUM SULFATE 2 GRAM 2 GM/50 ML BAG IV ONE (18:52)
[2023-02-09] MEDS: NEUTRA-PHOS 250 MG TABLET PO SCH ×2 (19:11→21:17)
[2023-02-09] MEDS ORDERED: ZINC OXIDE 20% OINT 30 GM TUBE TOP PRN (19:48)
[2023-02-09 21:48] LABS: LACTIC ACID, VENOUS 3.7 mmol/L (0.5-2.2)
[2023-02-10] MEDS ORDERED: SODIUM CHLORIDE 0.9% 500 ML IV PRN (00:42)
[2023-02-10] MEDS: SODIUM CHLORIDE 0.9% 1,000 ML IV SCH ×2 (01:32→06:53)
[2023-02-10] MEDS: SODIUM CHLORIDE FLUSH 0.9% 10 ML SYRINGE IVP SCH ×3 (02:01→18:44)
[2023-02-10] MEDS: CEFEPIME 2 GM in SODIUM CHLORIDE 0.9% MINIBAG 100 ML IV SCH ×3 (02:59→18:44)
[2023-02-10] MEDS: metroNIDAZOLE 500 MG/100 ML 500 MG/100 ML BAG IV SCH ×3 (03:41→19:56)
[2023-02-10 03:47] LABS: CALCIUM, IONIZED 1.38 mmol/L (1.15-1.33); VBG PH 7.388 (7.31-7.41)
[2023-02-10 03:51] LABS: BASOPHILS % (AUTO) 0.3 %; EOSINOPHILS % (AUTO) 0.1 %; HCT - HEMATOCRIT 31.2 % (37.0-47.0); LYMPHOCYTES % (AUTO) 8.4 %; MEAN CORPUSCULAR HEMOGLOBIN 30.5 pg (27.0-31.0); MEAN CORPUSCULAR HGB CONC 32.1 g/dL (32.0-36.0); MEAN CORPUSCULAR VOLUME 95.1 fL (81.0-99.0); MEAN PLATELET VOLUME 10.6 fL (7.9-10.8); MONOCYTES % (AUTO) 8.2 %; NEUTROPHILS % (AUTO) 78.4 %; PLT - PLATELET COUNT 105 10^3/uL (130-450); RED BLOOD COUNT 3.28 10^6/uL (4.20-5.40); RED CELL DISTRIBUTION WIDTH 17.2 % (12.0-15.0); WHITE BLOOD COUNT 16.2 x10^3/uL (4.8-10.8)
[2023-02-10 03:56] LABS: ABNORMAL LYMPHS % (MANUAL) 0 %
[2023-02-10 04:06] LABS: ALBUMIN 2.1 g/dL (3.2-5.5); ALBUMIN/GLOBULIN RATIO 0.8 (1.0-2.2); CALCIUM 9.6 mg/dL (8.5-10.3); CREATININE 0.5 mg/dL (0.4-1.0); MAGNESIUM 2.2 mg/dL (1.7-2.8); PHOSPHORUS 2.1 mg/dL (2.5-4.6); POTASSIUM 3.5 mmol/L (3.5-5.0); TOTAL PROTEIN 4.6 g/dL (6.7-8.2)
[2023-02-10 04:16] LABS: BAND NEUTROPHILS % (MANUAL) 6 %; DIFFERENTIAL COMMENT MANUAL DIFFERENTIAL; LYMPHOCYTES # (MANUAL) 1.8 10^3/uL (1.5-3.5); LYMPHOCYTES % (MANUAL) 11 %; METAMYELOCYTES % (MANUAL) 2 %; MONOCYTES # (MANUAL) 0.3 10^3/uL (0.0-1.0); NEUTROPHILS # (MANUAL) 13.8 10^3/uL (1.5-6.6); NUCLEATED RBC (MANUAL) 2 %; PLATELET ESTIMATE, MANUAL DECREASED (<130,000) (NORMAL); PLATELET MORPHOLOGY NORMAL APPEARANCE (NORMAL); RBC MORPHOLOGY (MULTIPLE) 1+ POLYCHROMASIA (NORMAL); WBC MORPHOLOGY (MULTIPLE) NORMAL APPEARANCE (NORMAL)
[2023-02-10] MEDS: DEXTROSE 5% 1,000 ML IV SCH (04:20)
[2023-02-10] MEDS: NEUTRA-PHOS 250 MG TABLET PO SCH ×2 (06:07→07:31)
[2023-02-10] MEDS: POTASSIUM CHLORIDE 20 MEQ/15 ML UDC PO SCH ×2 (06:07→07:31)
[2023-02-10] MEDS: VENLAFAXINE 37.5 MG TABLET NG SCH ×3 (06:07→21:36)
[2023-02-10] MEDS: SODIUM CHLORIDE FLUSH 0.9% 10 ML SYRINGE IVP PRN (06:08)
[2023-02-10] MEDS: PANTOPRAZOLE 40 MG VIAL IVP SCH (06:08)
[2023-02-10 06:26] LABS: LACTIC ACID, VENOUS 3.6 mmol/L (0.5-2.2)
[2023-02-10] MEDS: ARIPiprazole 5 MG TABLET NG SCH (09:12)
[2023-02-10] MEDS: HEPARIN 5,000 UNIT/ML VIAL SUBQ SCH ×2 (09:13→20:34)
[2023-02-10] MEDS: polyethylene glycoL 3350 17 GM PACKET PO SCH (09:14)
[2023-02-10] MEDS: VALPROATE 250 MG/5 ML SOLUTION UDC NG SCH ×2 (09:15→21:35)
[2023-02-10] MEDS: VANCOMYCIN INJ 1 GM in SODIUM CHLORIDE 0.9% 250 ML IV SCH ×2 (09:15→21:41)
[2023-02-10 09:43] LABS: LACTIC ACID, VENOUS 3.7 mmol/L (0.5-2.2)
[2023-02-10] MEDS: DEXTROSE 5%-0.9% NACL 1,000 ML IV SCH (10:09)
[2023-02-10] MEDS ORDERED: DEXTROSE 50% ABBOJECT 25 GM/50 ML SYRINGE IVP ONE (12:13)
[2023-02-10] MEDS ORDERED: DEXTROSE 50% ABBOJECT 25 GM/50 ML SYRINGE ONE (12:13)
[2023-02-10 12:59] LABS: PHOSPHORUS 1.9 mg/dL (2.5-4.6)
[2023-02-10] MEDS ORDERED: POTASSIUM PHOSPHATE 15 MMOL in SODIUM CHLORIDE 0.9% 250 ML IV ONE (13:30)
--- NOTE | 2023-02-10 15:54 | PROVIDER PROGRESS NOTE ---
Progress Note Patient admitted to ICU 02/08/23 unresponsive with presumed septic shock. Currently stabilized following fluid resuscitation, empiric abx. All cultures neg thus far. Prior to admit, 02/04/23 baseline imaging included brain MRI negative, CT CAP showing peritoneal nodule (concerning for extensive stage) on chest CT not mentioned on abd CT; otherwise disease limited to chest. Patient making progress steadily since admit favoring septic shock over primary paraneoplastic etiology per discussion with Dr. Hernandez. Met with patient's and son during chemo ed time today. They'd understood she could receive chemo as scheduled tomorrow while admitted to the ICU which is not possible upon further discussion with hem/onc team and inpatient team. Only option for inpatient chemo would [facility] however, patient making steady progress clinically favoring allowing more time for recovery. Contacted to relay patient not currently appropriate for chemotherapy due to risk outweighing benefit in setting of ICU admission. Scheduled office visit with Dr. Ac and chemo start 02/19/23 to be further evaluated prior.
--- NOTE | 2023-02-10 17:08 | PROVIDER PROGRESS NOTE ---
Assessment/Plan - Problem List (1) Acute encephalopathy Assessment/Plan: Marked improvement today with paper patient answering questions appropriately at times she appears to have some lapses in concentration and will forget. Nursing did have her sit at bedside.Acute encephalopathy secondary to infectious process and sepsis. (2) Lactic acid acidosis Assessment/Plan: Markedly improving. (3) Lung cancer Qualifiers: Laterality: right Lung location: middle lobe of lung Qualified Code(s): C34.2 - Malignant neoplasm of middle lobe, bronchus or lung Assessment/Plan: Recently diagnosed and will be initiating chemotherapy. Once medically stable. She is followed by an oncologist from [place]. And is working with the cancer center here at [facility]. (4) Sepsis Qualifiers: Sepsis type: sepsis due to unspecified organism Sepsis acute organ dysfunction status: with acute organ dysfunction Severe sepsis acute organ dysfunction type: encephalopathy Severe sepsis shock status: without septic shock Qualified Code(s): A41.9 - Sepsis, unspecified organism; R65.20 - Severe sepsis without septic shock; G93.40 - Encephalopathy, unspecified Assessment/Plan: Currently clinically improving with no fever does still have leukocytosis. Mental status is improving as noted above. (5) Hypercalcemia Assessment/Plan: Improved significantly with IV fluid hydration - Current Meds Current Meds: Current Medications Generic Name Dose Route Start Last Admin Trade Name Freq PRN Reason Stop Dose Admin Acetaminophen 650 mg 02/08/23 18:34 02/09/23 04:21 Acetaminophen 650 Mg Supp LA 650 mg Q6HR PRN Administration Pain or Fever > 38C (100.4F) Aripiprazole 5 mg 02/09/23 14:00 02/10/23 09:12 Aripiprazole 5 Mg Tablet NG 5 mg DAILY EUGENE Administration Heparin Sodium (Porcine) 5,000 unit 02/08/23 21:00 02/10/23 09:13 Heparin 5,000 Unit/Ml Vial SUBQ 5,000 unit BID EUGENE Administration Cefepime HCl 2 gm/ Sodium 100 mls @ 200 mls/hr 02/08/23 19:00 02/10/23 11:13 Chloride IV Infused Q8H EUGENE Infusion Vancomycin HCl 1 gm/ Sodium 250 mls @ 166.667 mls/hr 02/08/23 21:00 02/10/23 10:35 Chloride IV Infused BID EUGENE Infusion Metronidazole 500 mg in 100 mls @ 100 mls/hr 02/08/23 20:00 02/10/23 13:20 Flagyl 500 Mg/100 Ml IV Infused Q8H EUGENE Infusion Sodium Chloride 500 mls @ 20 mls/hr 02/10/23 00:42 02/10/23 10:09 Normal Saline 0.9% IV 0 mls/hr Q24H PRN Infusion TKO RATE Dextrose/Sodium Chloride 1,000 mls @ 100 mls/hr 02/10/23 10:00 02/10/23 10:09 D5ns IV 100 mls/hr .Q10H EUGENE Administration Potassium Phosphate 15 mmol/ 255 mls @ 63 mls/hr 02/10/23 13:30 02/10/23 13:33 Sodium Chloride IV 02/10/23 17:32 63 mls/hr ONCE ONE Administration Protocol Pantoprazole Sodium 40 mg 02/08/23 14:00 02/10/23 06:08 Pantoprazole 40 Mg Vial IVP 40 mg QDAC EUGENE Administration Polyethylene Glycol 17 gm 02/10/23 09:00 02/10/23 09:14 Polyethylene Glycol 3350 17 Gm Packet PO 17 gm DAILY EUGENE Administration Sodium Chloride 10 ml 02/08/23 17:00 02/10/23 09:15 Sodium Chloride Flush 0.9% 10 Ml Syringe IVP 10 ml 0100,0900,1700 EUGENE Administration Sodium Chloride 10 ml 02/08/23 12:59 02/10/23 06:08 Sodium Chloride Flush 0.9% 10 Ml Syringe IVP 10 ml PRN PRN Administration NEEDED PER PROVIDER ORDERS Valproic Acid 250 mg 02/09/23 14:00 02/10/23 09:15 Valproate 250 Mg/5 Ml Solution Udc NG 250 mg DAILY EUGENE Administration Valproic Acid 500 mg 02/09/23 21:00 02/09/23 21:17 Valproate 250 Mg/5 Ml Solution Udc NG 500 mg QPM EUGENE Administration Venlafaxine HCl 75 mg 02/09/23 14:00 02/10/23 14:47 Venlafaxine 37.5 Mg Tablet NG 75 mg TID EUGENE Administration - Lab Result Fish Bone Diagrams: 02/10/23 03:41 02/10/23 12:39 - Additional Planning Condition/Complexity: Improved My Orders: My Active Orders 02/09/23 19:48 Zinc Oxide 20% Oint [Zinc Oxide] 1 applic TOP PRN PRN 02/09/23 21:00 Valproate Oral Soln [Valproic Acid Oral Soln] 500 mg NG QPM 02/10/23 Clinical Swallow Evaluation [ST] Routine Clinical Swallow Evaluation [ST] Routine Evaluate and Treat OT [OT] Routine Evaluate and Treat PT [PT] Routine 02/10/23 00:42 Sodium Chloride 0.9% [Normal Saline 0.9%] 500 ml IV Q24H 02/10/23 09:00 polyethylene glycoL 3350 [Miralax] 17 gm PO DAILY 02/10/23 10:00 Dextrose 5%-0.9% NaCl [D5ns] 1,000 ml IV 100 mls/hr 02/10/23 13:30 Potassium Phosphate 15 mmol Sodium Chloride 0.9% [Normal Saline 0.9%] 250 ml IV ONCE 02/11/23 05:00 CALCIUM, IONIZED ([facility]) [BG] DAILYLAB CBC - COMP BLD CT W/AUTO DIFF [HEME] DAILYLAB COMPREHENSIVE METABOLIC PANEL [CHEM] DAILYLAB MAGNESIUM [CHEM] DAILYLAB PHOSPHORUS [CHEM] DAILYLAB TROPONIN I HIGH SENSITIVITY [IAI] DAILYLAB 02/12/23 05:00 CALCIUM, IONIZED ([facility]) [BG] DAILYLAB CBC - COMP BLD CT W/AUTO DIFF [HEME] DAILYLAB COMPREHENSIVE METABOLIC PANEL [CHEM] DAILYLAB MAGNESIUM [CHEM] DAILYLAB PHOSPHORUS [CHEM] DAILYLAB TROPONIN I HIGH SENSITIVITY [IAI] DAILYLAB 02/13/23 05:00 TROPONIN I HIGH SENSITIVITY [IAI] DAILYLAB Time Spent: 15-30 minutes Subjective - Subjective Patient Reports: Other (Patient awake alert answering most questions appropriately.) Objective Vital Signs: Vital Signs - 24 hr 02/09/23 02/09/23 02/09/23 18:00 19:00 20:00 Temperature 36.7 C 36.7 C 36.5 C Heart Rate [ 91 93 87 Monitoring electrodes] Respiratory 17 16 16 Rate Blood Pressure 135/73 H 135/71 H 143/80 H [Right Brachial artery] O2 Saturation 94 94 97 If not protocol 2 : Oxygen Flow, liters/minute 02/09/23 02/09/23 02/09/23 21:00 22:00 23:00 Temperature 36.3 C L 36.5 C 36.3 C L Heart Rate [ 88 84 85 Monitoring electrodes] Respiratory 17 18 16 Rate Blood Pressure 124/75 128/77 136/77 H [Right Brachial artery] O2 Saturation 96 98 99 If not protocol 2 2 2 : Oxygen Flow, liters/minute 02/10/23 02/10/23 02/10/23 00:00 01:00 02:00 Temperature 36.4 C L 36.5 C 36.5 C Heart Rate [ 81 84 85 Monitoring electrodes] Respiratory 16 17 16 Rate Blood Pressure 134/74 H 139/83 H 137/87 H [Right Brachial artery] O2 Saturation 97 96 96 If not protocol 2 2 2 : Oxygen Flow, liters/minute 02/10/23 02/10/23 02/10/23 03:00 04:00 05:00 Temperature 36.5 C 36.4 C L 36.4 C L Heart Rate [ 84 86 89 Monitoring electrodes] Respiratory 15 14 17 Rate Blood Pressure 126/79 143/80 H 152/83 H [Right Brachial artery] O2 Saturation 99 97 98 If not protocol 2 2 2 : Oxygen Flow, liters/minute 02/10/23 02/10/23 02/10/23 06:00 07:00 08:00 Temperature 36.4 C L 36.4 C L 36.4 C L Heart Rate [ 84 85 84 Monitoring electrodes] Respiratory 15 15 18 Rate Blood Pressure 142/88 H 126/80 129/69 [Right Brachial artery] O2 Saturation 98 98 98 If not protocol 2 2 2 : Oxygen Flow, liters/minute 02/10/23 02/10/23 02/10/23 09:00 10:00 11:00 Temperature 36.3 C L 36.5 C 36.5 C Heart Rate [ 82 81 82 Monitoring electrodes] Respiratory 17 19 18 Rate Blood Pressure 122/75 121/69 126/75 [Right Brachial artery] O2 Saturation 98 94 94 If not protocol 2 : Oxygen Flow, liters/minute 02/10/23 02/10/23 02/10/23 12:00 13:00 14:00 Temperature 36.6 C 36.6 C 36.6 C Heart Rate [ 88 85 88 Monitoring electrodes] Respiratory 20 19 20 Rate Blood Pressure 117/72 111/77 125/70 [Right Brachial artery] O2 Saturation 95 93 93 If not protocol : Oxygen Flow, liters/minute 02/10/23 02/10/23 15:00 16:00 Temperature 36.8 C 36.8 C Heart Rate [ 93 90 Monitoring electrodes] Respiratory 19 21 Rate Blood Pressure 122/77 125/81 H [Right Brachial artery] O2 Saturation 93 94 If not protocol : Oxygen Flow, liters/minute Oxygen O2 Source Room air I&O (Last 24 Hrs): Intake and Output Totals x24h 02/08/23 02/09/23 02/10/23 23:59 23:59 23:59 Intake Total 3150 7285.000 3181.667 Output Total 240 1082 850 Balance 2910 6203.000 2331.667 General: Alert, Oriented x3, Other (At times will be slightly confused but that resolves.) HEENT: Atraumatic Neck: Supple Neuro: Alert, Non Focal Cardiovascular: Regular rate, Normal S1, Normal S2 Respiratory: No respiratory distress Abdomen: Soft Extremities: Other (Improved perfusion with minimal mottled areas just some coldness but no discoloration at the tips of her toes bilaterally) - Results Results: Laboratory Results WBC 16.2 x10^3/uL (4.8-10.8) H 02/10/23 03:41 RBC 3.28 10^6/uL (4.20-5.40) L 02/10/23 03:41 Hgb 10.0 g/dL (12.0-16.0) L 02/10/23 03:41 Hct 31.2 % (37.0-47.0) L 02/10/23 03:41 MCV 95.1 fL (81.0-99.0) 02/10/23 03:41 MCH 30.5 pg (27.0-31.0) 02/10/23 03:41 MCHC 32.1 g/dL (32.0-36.0) 02/10/23 03:41 RDW 17.2 % (12.0-15.0) H 02/10/23 03:41 Plt Count 105 10^3/uL (130-450) L 02/10/23 03:41 MPV 10.6 fL (7.9-10.8) 02/10/23 03:41 Neut # (Auto) Not Reportable 02/10/23 03:41 Lymph # (Auto) Not Reportable 02/10/23 03:41 [place] # (Auto) Not Reportable 02/10/23 03:41 Eos # (Auto) Not Reportable 02/10/23 03:41 Baso # (Auto) Not Reportable 02/10/23 03:41 Absolute Nucleated RBC Not Reportable 02/10/23 03:41 Total Counted 100 02/10/23 03:41 Band Neuts % (Manual) 6 % (0-10) 02/10/23 03:41 Abnorm Lymph % (Manual) 0 % 02/10/23 03:41 Metamyelocytes % 2 % (-0) H 02/10/23 03:41 Myelocytes % 1 % (-0) H 02/09/23 04:31 Nucleated RBC % Not Reportable 02/10/23 03:41 Neutrophils # (Manual) 13.8 10^3/uL (1.5-6.6) H 02/10/23 03:41 Lymphocytes # (Manual) 1.8 10^3/uL (1.5-3.5) 02/10/23 03:41 Monocytes # (Manual) 0.3 10^3/uL (0.0-1.0) 02/10/23 03:41 Eosinophils # (Manual) 0.0 10^3/uL (0-0.7) 02/10/23 03:41 Basophils # (Manual) 0.0 10^3/uL (0-0.1) 02/10/23 03:41 Nucleated RBCs 2 % 02/10/23 03:41 Differential Comment MANUAL DIFFERENTIAL 02/10/23 03:41 Manual Slide Review Indicated 02/09/23 04:31 WBC Morphology NORMAL APPEARANCE (NORMAL) 02/10/23 03:41 Platelet Estimate DECREASED (<130,000) (NORMAL) 02/10/23 03:41 Platelet Morphology NORMAL APPEARANCE (NORMAL) 02/10/23 03:41 RBC Morph Micro Appear 1+ POLYCHROMASIA (NORMAL) 02/10/23 03:41 ESR 20 mm/Hr (0-30) 02/08/23 11:24 PT 15.0 secs (9.9-12.6) H 02/08/23 11:24 INR 1.4 (0.8-1.2) H 02/08/23 11:24 APTT 26.2 secs (24.9-33.3) 02/08/23 11:24 Bld Gas Analysis Time 0810 02/09/23 08:10 Sample Site RIGHT RADIAL 02/08/23 10:55 ABG pH 7.46 (7.35-7.45) H 02/09/23 08:10 ABG pCO2 29 mmHg (34-45) L 02/09/23 08:10 ABG pO2 58 mmHg (80-100) L 02/09/23 08:10 ABG HCO3 20.1 mmol/L (22.0-26.0) L 02/09/23 08:10 ABG Total CO2 21.0 MMOL/L (21.0-29.0) 02/09/23 08:10 ABG O2 Saturation 90 % (94-98) L 02/09/23 08:10 ABG Base Excess -2.8 mmol/L (-2.0-3.0) L 02/09/23 08:10 [place] Test POSITIVE 02/09/23 08:10 VBG pH 7.388 (7.31-7.41) 02/10/23 03:41 Ionized Calcium 1.38 mmol/L (1.15-1.33) H 02/10/23 03:41 Room Air YES 02/09/23 08:10 Sodium 133 mmol/L (135-145) L 02/10/23 03:41 Potassium 3.7 mmol/L (3.5-5.0) 02/10/23 12:39 Chloride 106 mmol/L (101-111) 02/10/23 03:41 Carbon Dioxide 19 mmol/L (21-32) L 02/10/23 03:41 Anion Gap 8.0 (6-13) 02/10/23 03:41 BUN 24 mg/dL (6-20) H 02/10/23 03:41 Creatinine 0.5 mg/dL (0.4-1.0) 02/10/23 03:41 Estimated GFR (MDRD) 121 (>89) 02/10/23 03:41 Glucose 95 mg/dL (70-100) 02/10/23 03:41 POC Whole Bld Glucose 130 mg/dL (70 - 100) H 02/10/23 12:24 Lactic Acid 3.7 mmol/L (0.5-2.2) H* 02/10/23 09:20 Calcium 9.6 mg/dL (8.5-10.3) 02/10/23 03:41 Phosphorus 1.9 mg/dL (2.5-4.6) L 02/10/23 12:39 Magnesium 2.0 mg/dL (1.7-2.8) 02/10/23 12:39 Total Bilirubin 2.0 mg/dL (0.2-1.0) H 02/10/23 03:41 AST 1355 IU/L (10-42) H 02/10/23 03:41 ALT 595 IU/L (10-60) H 02/10/23 03:41 Alkaline Phosphatase 260 IU/L (42-121) H 02/10/23 03:41 Troponin I High Sens 71.0 ng/L (2.3-14.8) H* 02/10/23 03:41 C-Reactive Protein 2.7 mg/dL (0-1.0) H 02/08/23 11:24 Total Protein 4.6 g/dL (6.7-8.2) L 02/10/23 03:41 Albumin 2.1 g/dL (3.2-5.5) L 02/10/23 03:41 Globulin 2.5 g/dL (2.1-4.2) 02/10/23 03:41 Albumin/Globulin Ratio 0.8 (1.0-2.2) L 02/10/23 03:41 Lipase 343 U/L (22-51) H 02/08/23 09:54 Urine Color DARK YELLOW 02/08/23 10:22 Urine Clarity HAZY (CLEAR) 02/08/23 10:22 Urine pH 6.0 PH (5.0-7.5) 02/08/23 10:22 Ur Specific [place] >=1.030 (1.002-1.030) H 02/08/23 10:22 Urine Protein 100 mg/dL (NEGATIVE) H 02/08/23 10:22 Urine Glucose (UA) NEGATIVE mg/dL (NEGATIVE) 02/08/23 10:22 Urine Ketones 15 mg/dL (NEGATIVE) H 02/08/23 10:22 Urine Occult Blood LARGE (NEGATIVE) H 02/08/23 10:22 Urine Nitrite NEGATIVE (NEGATIVE) 02/08/23 10:22 Urine Bilirubin NEGATIVE (NEGATIVE) 02/08/23 10:22 Urine Urobilinogen 4 E.U./dL (NORMAL) H 02/08/23 10:22 Ur Leukocyte Esterase NEGATIVE (NEGATIVE) 02/08/23 10:22 Urine RBC 11-25 /HPF (0-5) H 02/08/23 10:22 Urine WBC 4-5 /HPF (0-5) 02/08/23 10:22 Ur Squamous Epith Cells MANY Squamous (<= Few) H 02/08/23 10:22 Urine Bacteria Moderate /HPF (None Seen) H 02/08/23 10:22 Urine Mucus Marked Strands 02/08/23 10:22 Ur Microscopic Review INDICATED 02/08/23 10:22 Urine Culture Comments NOT INDICATED 02/08/23 10:22 Nasal Adenovirus (PCR) NOT DETECTED 02/08/23 09:54 Nasal B. parapertussis DNA (PCR) NOT DETECTED 02/08/23 09:54 Nasal Coronavir 229E PCR NOT DETECTED 02/08/23 09:54 Nasal Coronavir HKU1 PCR NOT DETECTED 02/08/23 09:54 Nasal Coronavir NL63 PCR NOT DETECTED 02/08/23 09:54 Nasal Coronavir OC43 PCR NOT DETECTED 02/08/23 09:54 Nasal Enterovir/Rhinovir PCR NOT DETECTED 02/08/23 09:54 Nasal Influenza B PCR NOT DETECTED 02/08/23 09:54 Nasal Influenza A PCR NOT DETECTED 02/08/23 09:54 Nasal Parainfluen 1 PCR NOT DETECTED 02/08/23 09:54 Nasal Parainfluen 2 PCR NOT DETECTED 02/08/23 09:54 Nasal Parainfluen 3 PCR NOT DETECTED 02/08/23 09:54 Nasal Parainfluen 4 PCR NOT DETECTED 02/08/23 09:54 Nasal RSV (PCR) NOT DETECTED 02/08/23 09:54 Nasal Screen MRSA (PCR) NEGATIVE (NEGATIVE) 02/08/23 13:44 Nasal B.pertussis DNA PCR NOT DETECTED 02/08/23 09:54 Nasal C.pneumoniae (PCR) NOT DETECTED 02/08/23 09:54 Octavio Human Metapneumo PCR NOT DETECTED 02/08/23 09:54 Nasal M.pneumoniae (PCR) NOT DETECTED 02/08/23 09:54 Nasal SARS-CoV-2 (PCR) NOT DETECTED 02/08/23 09:54 - Procedures Procedures: Procedures INSPECTION OF LOWER INTESTINAL TRACT, ENDO (10/08/16) Sepsis Event Note (H) - Evaluation Current Stage of Sepsis: Resolved Possible source of Sepsis: positive: Unknown - Sepsis Criteria Sepsis Criteria: Recorded Heart Rate greater than 90 bpm, Recorded Respiratory Rate greater than 20, Respiratory: Increasing oxygen requirements, Renal: urine output less than 0.5ml/kg/hr for 2 hours or creatinine gr ABX Reporting Has patient been on IV antibiotics over the past 48 hours?: Yes
[2023-02-10 20:12] LABS: PHOSPHORUS 2.2 mg/dL (2.5-4.6); POTASSIUM 3.9 mmol/L (3.5-5.0)
[2023-02-11] MEDS ORDERED: DEXTROSE 50% ABBOJECT 25 GM/50 ML SYRINGE IVP ONE (00:13)
[2023-02-11] MEDS: SODIUM CHLORIDE FLUSH 0.9% 10 ML SYRINGE IVP SCH ×3 (00:34→20:11)
[2023-02-11] MEDS: SODIUM CHLORIDE FLUSH 0.9% 10 ML SYRINGE IVP PRN (00:34)
[2023-02-11] MEDS: DEXTROSE 5% 1,000 ML IV SCH ×3 (00:35→23:00)
[2023-02-11] MEDS: DEXTROSE 5%-0.9% NACL 1,000 ML IV SCH ×3 (01:00→11:10)
[2023-02-11] MEDS: CEFEPIME 2 GM in SODIUM CHLORIDE 0.9% MINIBAG 100 ML IV SCH ×3 (03:10→22:38)
[2023-02-11] MEDS: metroNIDAZOLE 500 MG/100 ML 500 MG/100 ML BAG IV SCH ×3 (04:12→22:38)
[2023-02-11 04:46] LABS: CALCIUM, IONIZED 1.41 mmol/L (1.15-1.33); VBG PH 7.421 (7.31-7.41)
[2023-02-11 04:47] LABS: BASOPHILS % (AUTO) 0.4 %; EOSINOPHILS % (AUTO) 0.2 %; HCT - HEMATOCRIT 31.9 % (37.0-47.0); HGB - HEMOGLOBIN 10.5 g/dL (12.0-16.0); LYMPHOCYTES % (AUTO) 8.8 %; MEAN CORPUSCULAR HEMOGLOBIN 30.4 pg (27.0-31.0); MEAN CORPUSCULAR HGB CONC 32.9 g/dL (32.0-36.0); MEAN CORPUSCULAR VOLUME 92.5 fL (81.0-99.0); MEAN PLATELET VOLUME 10.6 fL (7.9-10.8); MONOCYTES % (AUTO) 9.1 %; NEUTROPHILS % (AUTO) 75.3 %; PLT - PLATELET COUNT 111 10^3/uL (130-450); RED BLOOD COUNT 3.45 10^6/uL (4.20-5.40); RED CELL DISTRIBUTION WIDTH 17.6 % (12.0-15.0); WHITE BLOOD COUNT 15.8 x10^3/uL (4.8-10.8)
[2023-02-11 04:52] LABS: ABNORMAL LYMPHS % (MANUAL) 0 %
[2023-02-11 05:04] LABS: BAND NEUTROPHILS % (MANUAL) 5 %; LYMPHOCYTES # (MANUAL) 1.4 10^3/uL (1.5-3.5); LYMPHOCYTES % (MANUAL) 9 %; METAMYELOCYTES % (MANUAL) 2 %; MONOCYTES # (MANUAL) 0.9 10^3/uL (0.0-1.0); MYELOCYTES % (MANUAL) 4 %; NEUTROPHILS # (MANUAL) 12.5 10^3/uL (1.5-6.6); NUCLEATED RBC (MANUAL) 4 %
[2023-02-11 05:05] LABS: PLATELET ESTIMATE, MANUAL DECREASED (<130,000) (NORMAL); PLATELET MORPHOLOGY NORMAL APPEARANCE (NORMAL); WBC MORPHOLOGY (MULTIPLE) NORMAL APPEARANCE (NORMAL)
[2023-02-11 05:06] LABS: DIFFERENTIAL COMMENT MANUAL DIFFERENTIAL
[2023-02-11 05:07] LABS: ALBUMIN/GLOBULIN RATIO 0.8 (1.0-2.2); BILIRUBIN,TOTAL 2.6 mg/dL (0.2-1.0); CALCIUM 10.1 mg/dL (8.5-10.3); CREATININE 0.5 mg/dL (0.4-1.0); PHOSPHORUS 1.6 mg/dL (2.5-4.6); POTASSIUM 3.9 mmol/L (3.5-5.0); TOTAL PROTEIN 4.5 g/dL (6.7-8.2)
[2023-02-11] MEDS: VENLAFAXINE 37.5 MG TABLET NG SCH ×3 (06:11→22:47)
[2023-02-11] MEDS: PANTOPRAZOLE 40 MG VIAL IVP SCH (06:16)
[2023-02-11] MEDS ORDERED: POTASSIUM PHOSPHATE 15 MMOL in SODIUM CHLORIDE 0.9% 250 ML IV ONE (08:00)
[2023-02-11] MEDS: VALPROATE 250 MG/5 ML SOLUTION UDC NG SCH ×2 (09:27→22:46)
[2023-02-11] MEDS: ARIPiprazole 5 MG TABLET NG SCH (09:27)
[2023-02-11] MEDS: HEPARIN 5,000 UNIT/ML VIAL SUBQ SCH ×2 (10:46→21:36)
[2023-02-11] MEDS: polyethylene glycoL 3350 17 GM PACKET PO SCH (11:08)
[2023-02-11] MEDS ORDERED: DEXTROSE 50% ABBOJECT 25 GM/50 ML SYRINGE ONE (17:03)
--- NOTE | 2023-02-11 17:31 | PROVIDER PROGRESS NOTE ---
Subjective - Subjective Pt reports feeling: Worse (By my eval (patient was evaluated at 0900 and at 1845), she appears more obtunded, more weak, and is more tachypneic this afternoon. She is also having a second nosebleed today.) Objective - Vital Signs/Intake & Output Vital Signs: Vital Signs Temp Pulse Resp BP Pulse Ox 02/11/23 17:00 37.3 C 104 H 27 H 129/81 H 96 Intake & Output: Intake & Output 02/08/23 02/09/23 02/10/23 02/11/23 23:59 23:59 23:59 23:59 Intake Total 3150 7285.000 4281.666 2865.001 Output Total 240 1082 1055 385 Balance 2910 6203.000 3226.666 2480.001 - Objective General Appearance: positive: Moderate distress (from tachypnea) ENT: positive: Dry mucous membranes, Other (Epistaxis, bilateral nares) Neck: positive: Other (Cannot evaluate in supine and lateral decubitus positions) Respiratory: positive: Wheezes, Rhonchi Cardiovascular: positive: Regular rate & rhythm, Tachycardia Abdomen: positive: Non-tender, No distention Skin: positive: Warm, Dry Extremities: positive: Non-tender Neurologic/Psychiatric: positive: Other (Lethargic, eyes are half open) - Lab Results Fish Bones: 02/11/23 04:34 02/11/23 04:34 Other Labs: Lab Results x24hrs 02/11/23 02/11/23 02/11/23 Range/Units 17:17 16:44 12:38 WBC (4.8-10.8) x10^3/uL RBC (4.20-5.40) 10^6/uL Hgb (12.0-16.0) g/dL Hct (37.0-47.0) % MCV (81.0-99.0) fL MCH (27.0-31.0) pg MCHC (32.0-36.0) g/dL RDW (12.0-15.0) % Plt Count (130-450) 10^3/uL MPV (7.9-10.8) fL Neut # (Auto) Lymph # (Auto) Barren # (Auto) Eos # (Auto) Baso # (Auto) Absolute Nucleated RBC Total Counted Band Neuts % (Manual) (0 - 10) % Abnorm Lymph % (Manual) % Metamyelocytes % ( - 0) % Myelocytes % ( - 0) % Nucleated RBC % Neutrophils # (Manual) (1.5-6.6) 10^3/uL Lymphocytes # (Manual) (1.5-3.5) 10^3/uL Monocytes # (Manual) (0.0-1.0) 10^3/uL Eosinophils # (Manual) (0-0.7) 10^3/uL Basophils # (Manual) (0-0.1) 10^3/uL Nucleated RBCs % Differential Comment WBC Morphology (NORMAL) Platelet Estimate (NORMAL) Platelet Morphology (NORMAL) RBC Morph Micro Appear (NORMAL) VBG pH (7.31-7.41) Ionized Calcium (1.15-1.33) mmol/L Sodium (135-145) mmol/L Potassium (3.5-5.0) mmol/L Chloride (101-111) mmol/L Carbon Dioxide (21-32) mmol/L Anion Gap (6-13) BUN (6-20) mg/dL Creatinine (0.4-1.0) mg/dL Estimated GFR (MDRD) (>89) Glucose (70-100) mg/dL POC Whole Bld Glucose 192 H 68 L 80 (70 - 100) mg/dL Calcium (8.5-10.3) mg/dL Phosphorus (2.5-4.6) mg/dL Magnesium (1.7-2.8) mg/dL Total Bilirubin (0.2-1.0) mg/dL AST (10-42) IU/L ALT (10-60) IU/L Alkaline Phosphatase (42-121) IU/L Troponin I High Sens (2.3-14.8) ng/L Total Protein (6.7-8.2) g/dL Albumin (3.2-5.5) g/dL Globulin (2.1-4.2) g/dL Albumin/Globulin Ratio (1.0-2.2) 02/11/23 02/11/23 02/11/23 Range/Units 05:56 04:34 04:34 WBC (4.8-10.8) x10^3/uL RBC (4.20-5.40) 10^6/uL Hgb (12.0-16.0) g/dL Hct (37.0-47.0) % MCV (81.0-99.0) fL MCH (27.0-31.0) pg MCHC (32.0-36.0) g/dL RDW (12.0-15.0) % Plt Count (130-450) 10^3/uL MPV (7.9-10.8) fL Neut # (Auto) Lymph # (Auto) Barren # (Auto) Eos # (Auto) Baso # (Auto) Absolute Nucleated RBC Total Counted Band Neuts % (Manual) (0 - 10) % Abnorm Lymph % (Manual) % Metamyelocytes % ( - 0) % Myelocytes % ( - 0) % Nucleated RBC % Neutrophils # (Manual) (1.5-6.6) 10^3/uL Lymphocytes # (Manual) (1.5-3.5) 10^3/uL Monocytes # (Manual) (0.0-1.0) 10^3/uL Eosinophils # (Manual) (0-0.7) 10^3/uL Basophils # (Manual) (0-0.1) 10^3/uL Nucleated RBCs % Differential Comment WBC Morphology (NORMAL) Platelet Estimate (NORMAL) Platelet Morphology (NORMAL) RBC Morph Micro Appear (NORMAL) VBG pH 7.421 H (7.31-7.41) Ionized Calcium 1.41 H (1.15-1.33) mmol/L Sodium (135-145) mmol/L Potassium (3.5-5.0) mmol/L Chloride (101-111) mmol/L Carbon Dioxide (21-32) mmol/L Anion Gap (6-13) BUN (6-20) mg/dL Creatinine (0.4-1.0) mg/dL Estimated GFR (MDRD) (>89) Glucose (70-100) mg/dL POC Whole Bld Glucose 86 (70 - 100) mg/dL Calcium (8.5-10.3) mg/dL Phosphorus (2.5-4.6) mg/dL Magnesium (1.7-2.8) mg/dL Total Bilirubin (0.2-1.0) mg/dL AST (10-42) IU/L ALT (10-60) IU/L Alkaline Phosphatase (42-121) IU/L Troponin I High Sens 31.9 H* (2.3-14.8) ng/L Total Protein (6.7-8.2) g/dL Albumin (3.2-5.5) g/dL Globulin (2.1-4.2) g/dL Albumin/Globulin Ratio (1.0-2.2) 02/11/23 02/11/23 02/11/23 Range/Units 04:34 04:34 00:58 WBC 15.8 H (4.8-10.8) x10^3/uL RBC 3.45 L (4.20-5.40) 10^6/uL Hgb 10.5 L (12.0-16.0) g/dL Hct 31.9 L (37.0-47.0) % MCV 92.5 (81.0-99.0) fL MCH 30.4 (27.0-31.0) pg MCHC 32.9 (32.0-36.0) g/dL RDW 17.6 H (12.0-15.0) % Plt Count 111 L (130-450) 10^3/uL MPV 10.6 (7.9-10.8) fL Neut # (Auto) Not Reportable Lymph # (Auto) Not Reportable Barren # (Auto) Not Reportable Eos # (Auto) Not Reportable Baso # (Auto) Not Reportable Absolute Nucleated RBC Not Reportable Total Counted 100 Band Neuts % (Manual) 5 (0 - 10) % Abnorm Lymph % (Manual) 0 % Metamyelocytes % 2 H ( - 0) % Myelocytes % 4 H ( - 0) % Nucleated RBC % Not Reportable Neutrophils # (Manual) 12.5 H (1.5-6.6) 10^3/uL Lymphocytes # (Manual) 1.4 L (1.5-3.5) 10^3/uL Monocytes # (Manual) 0.9 (0.0-1.0) 10^3/uL Eosinophils # (Manual) 0.0 (0-0.7) 10^3/uL Basophils # (Manual) 0.0 (0-0.1) 10^3/uL Nucleated RBCs 4 % Differential Comment MANUAL DIFFERENTIAL WBC Morphology NORMAL APPEARANCE (NORMAL) Platelet Estimate DECREASED (<130,000) (NORMAL) Platelet Morphology NORMAL APPEARANCE (NORMAL) RBC Morph Micro Appear 1+ MARTINE CELLS (NORMAL) VBG pH (7.31-7.41) Ionized Calcium (1.15-1.33) mmol/L Sodium 135 (135-145) mmol/L Potassium 3.9 (3.5-5.0) mmol/L Chloride 110 (101-111) mmol/L Carbon Dioxide 19 L (21-32) mmol/L Anion Gap 6.0 (6-13) BUN 21 H (6-20) mg/dL Creatinine 0.5 (0.4-1.0) mg/dL Estimated GFR (MDRD) 121 (>89) Glucose 98 (70-100) mg/dL POC Whole Bld Glucose 159 H (70 - 100) mg/dL Calcium 10.1 (8.5-10.3) mg/dL Phosphorus 1.6 L (2.5-4.6) mg/dL Magnesium 2.0 (1.7-2.8) mg/dL Total Bilirubin 2.6 H (0.2-1.0) mg/dL AST 953 H (10-42) IU/L ALT 575 H (10-60) IU/L Alkaline Phosphatase 282 H (42-121) IU/L Troponin I High Sens (2.3-14.8) ng/L Total Protein 4.5 L (6.7-8.2) g/dL Albumin 2.0 L (3.2-5.5) g/dL Globulin 2.5 (2.1-4.2) g/dL Albumin/Globulin Ratio 0.8 L (1.0-2.2) 02/11/23 02/10/23 02/10/23 Range/Units 00:10 23:52 19:53 WBC (4.8-10.8) x10^3/uL RBC (4.20-5.40) 10^6/uL Hgb (12.0-16.0) g/dL Hct (37.0-47.0) % MCV (81.0-99.0) fL MCH (27.0-31.0) pg MCHC (32.0-36.0) g/dL RDW (12.0-15.0) % Plt Count (130-450) 10^3/uL MPV (7.9-10.8) fL Neut # (Auto) Lymph # (Auto) Barren # (Auto) Eos # (Auto) Baso # (Auto) Absolute Nucleated RBC Total Counted Band Neuts % (Manual) (0 - 10) % Abnorm Lymph % (Manual) % Metamyelocytes % ( - 0) % Myelocytes % ( - 0) % Nucleated RBC % Neutrophils # (Manual) (1.5-6.6) 10^3/uL Lymphocytes # (Manual) (1.5-3.5) 10^3/uL Monocytes # (Manual) (0.0-1.0) 10^3/uL Eosinophils # (Manual) (0-0.7) 10^3/uL Basophils # (Manual) (0-0.1) 10^3/uL Nucleated RBCs % Differential Comment WBC Morphology (NORMAL) Platelet Estimate (NORMAL) Platelet Morphology (NORMAL) RBC Morph Micro Appear (NORMAL) VBG pH (7.31-7.41) Ionized Calcium (1.15-1.33) mmol/L Sodium (135-145) mmol/L Potassium 3.9 (3.5-5.0) mmol/L Chloride (101-111) mmol/L Carbon Dioxide (21-32) mmol/L Anion Gap (6-13) BUN (6-20) mg/dL Creatinine (0.4-1.0) mg/dL Estimated GFR (MDRD) (>89) Glucose (70-100) mg/dL POC Whole Bld Glucose 60 L* 63 L (70 - 100) mg/dL Calcium (8.5-10.3) mg/dL Phosphorus 2.2 L (2.5-4.6) mg/dL Magnesium (1.7-2.8) mg/dL Total Bilirubin (0.2-1.0) mg/dL AST (10-42) IU/L ALT (10-60) IU/L Alkaline Phosphatase (42-121) IU/L Troponin I High Sens (2.3-14.8) ng/L Total Protein (6.7-8.2) g/dL Albumin (3.2-5.5) g/dL Globulin (2.1-4.2) g/dL Albumin/Globulin Ratio (1.0-2.2) 02/10/23 Range/Units 18:04 WBC (4.8-10.8) x10^3/uL RBC (4.20-5.40) 10^6/uL Hgb (12.0-16.0) g/dL Hct (37.0-47.0) % MCV (81.0-99.0) fL MCH (27.0-31.0) pg MCHC (32.0-36.0) g/dL RDW (12.0-15.0) % Plt Count (130-450) 10^3/uL MPV (7.9-10.8) fL Neut # (Auto) Lymph # (Auto) Barren # (Auto) Eos # (Auto) Baso # (Auto) Absolute Nucleated RBC Total Counted Band Neuts % (Manual) (0 - 10) % Abnorm Lymph % (Manual) % Metamyelocytes % ( - 0) % Myelocytes % ( - 0) % Nucleated RBC % Neutrophils # (Manual) (1.5-6.6) 10^3/uL Lymphocytes # (Manual) (1.5-3.5) 10^3/uL Monocytes # (Manual) (0.0-1.0) 10^3/uL Eosinophils # (Manual) (0-0.7) 10^3/uL Basophils # (Manual) (0-0.1) 10^3/uL Nucleated RBCs % Differential Comment WBC Morphology (NORMAL) Platelet Estimate (NORMAL) Platelet Morphology (NORMAL) RBC Morph Micro Appear (NORMAL) VBG pH (7.31-7.41) Ionized Calcium (1.15-1.33) mmol/L Sodium (135-145) mmol/L Potassium (3.5-5.0) mmol/L Chloride (101-111) mmol/L Carbon Dioxide (21-32) mmol/L Anion Gap (6-13) BUN (6-20) mg/dL Creatinine (0.4-1.0) mg/dL Estimated GFR (MDRD) (>89) Glucose (70-100) mg/dL POC Whole Bld Glucose 81 (70 - 100) mg/dL Calcium (8.5-10.3) mg/dL Phosphorus (2.5-4.6) mg/dL Magnesium (1.7-2.8) mg/dL Total Bilirubin (0.2-1.0) mg/dL AST (10-42) IU/L ALT (10-60) IU/L Alkaline Phosphatase (42-121) IU/L Troponin I High Sens (2.3-14.8) ng/L Total Protein (6.7-8.2) g/dL Albumin (3.2-5.5) g/dL Globulin (2.1-4.2) g/dL Albumin/Globulin Ratio (1.0-2.2) Sepsis Event Note (H) - Evaluation Current Stage of Sepsis: Resolved Possible source of Sepsis: positive: Unknown - Sepsis Criteria Sepsis Criteria: Recorded Heart Rate greater than 90 bpm, Recorded Respiratory Rate greater than 20, Respiratory: Increasing oxygen requirements, Renal: urine output less than 0.5ml/kg/hr for 2 hours or creatinine gr Assessment/Plan - Problem List (1) Acute encephalopathy Impression: Acute encephalopathy was presumed to be secondary to infectious process and sepsis. She has been on empric iv antibx, but no (+) cultures have returned. Overall she improved since the obtundation she had at admission. Patient now a nswering questions appropriately at times, but she appears to have some lapses in concentration and will forget. And she is also severely weakened and appears lethargic. Plan: Will cont iv calories and hydration Will request an LP, given the persistent elevated WBC abd persistent AMS,I spoke to Anesthesia Remain in ICU Will consider stopping empiric iv Vanco since no MRSA found, but cont Cefepime and Flagyl (2) Sepsis Qualifiers: Sepsis type: sepsis due to unspecified organism Sepsis acute organ dysfunction status: with acute organ dysfunction Severe sepsis acute organ dysfunction type: encephalopathy Severe sepsis shock status: without septic shock Qualified Code(s): A41.9 - Sepsis, unspecified organism; R65.20 - Severe sepsis without septic shock; G93.40 - Encephalopathy, unspecified Assessment/Plan: Currently clinically improving with no fever, but does still have leukocytosis. L.A. went from 9 to 3.7 over 3 days. No L.A. was ordered to be done today. Mental status is minimally improving as noted above. Plan: Remain in ICU Continue with empiric antibiotics as outlined in #1 and #3 Obtain spinal tap Follow lactic acid level (3) CAP Imaging reports reviewed. The last chest x-ray done 02/09/2023 was read as having a RUL pneumonia and probably a mass associated with that (which would be her lung cancer). Very likely she has a post-obstructive ammonia. Plan: Continue with empiric IV cefepime and IV Flagyl Probiotics ordered, if the patient is able to swallow She may need chest PT by RT (4) Wheezing This afternoon the RN informed me that the patient seems more uncomfortable because she is tachycardic and also respiratory rate increased to 25-27. On exam, the patient has bilateral rhonchi and expiratory wheezing as well Plan: Obtain chest x-ray. Will start Lasix and decrease iv rate if CHF is reported Start Xopenex scheduled QID ABG (5) Lactic acid acidosis Assessment/Plan: Labs were all reviewed Markedly improving L.A. from 9 at admission to 3.7 yesterday. But the drop was slow and not typical of improvement when infection is treated. Plan: Given the increased tachypnea and findings of wheezing and rhonchi, we will recheck her Lactic Acid level and a chest x-ray (6) Transaminitis All labs were reviewed. Her AST's increased (322, 520, 2964, 1355, 953) and ALT also clementine (went from 116, 169, 850, 595, 575). The pattern suggest she might of had shock liver or hepatotoxin in the form of one of her meds may have caused this Plan: Will avoid hepatotoxins She may need repeat imaging of the liver, if not yet repeated since admission (7) Hypoglycemia Patient is not a diabetic but she has had poor oral intake because of her lethargy Plan: We will order a CMP a chest fingerstick glucose checks Continue IV fluids that contain D5 (8) Thrombocytopenia Patient had 2 episodes of epistaxis today. I reviewed labs. Yesterday her platelet count had dropped from normal to 105, today platelets are 111 Plan: We will put hold orders SQ BID Heparin unless platelets are over 130 Will evaluate fibrinogen level to rule out DIC Recheck a lactic acid level to consider ongoing sepsis as the underlying cause (9) Type 2 NM Her troponins went from 87, 125, 146, 281. Then 2 days later it was 71 and a day later (today) was 31. There is no Hx of CAD and was no c/o or visible CP at admission. Plan: Will obtain an EKG and obtain an Echo, to eval for regional LV wall motion abnormalities. (10) Lung cancer Qualifiers: Laterality: right Lung location: middle lobe of lung Qualified Code(s): C34.2 - Malignant neoplasm of middle lobe, bronchus or lung Assessment/Plan: Recently diagnosedsmall cell CA and will be initiating chemotherapy, once medically stable. She is followed by an oncologist from [facility] and is working with the cancer center here at [facility]. (11) Hypercalcemia Assessment/Plan: Improved significantly with IV fluid hydration
[2023-02-11 18:42] LABS: VBG PCO2 29.1 mmHg (41-51); VBG PH 7.365 (7.31-7.41)
[2023-02-11 18:43] LABS: VBG BASE EXCESS -7.7 mmol/L (-2 - +2); VBG HCO3 16.3 mmol/L (23-28); VBG PO2 39.1 mmHg (25-47); VBG TOTAL CO2 17.2 mmol/L (24-29)
[2023-02-11] MEDS ORDERED: LIDOCAINE-MPF 1% 5 ML VIAL ONE (19:08)
--- NOTE | 2023-02-11 19:09 | XRAY Report ---
PROCEDURE: Chest 1 View X-Ray INDICATIONS: new SOB, sepsis TECHNIQUE: One view of the chest was acquired. COMPARISON: None. FINDINGS: Surgical changes and devices: Left chest wall port is seen with good positioning of the catheter tip . Lungs and pleura: Right upper lobe infiltrate consistent with pneumonia. No pneumothorax or pleural effusion. Mediastinum: Mediastinal contours appear normal. Heart size is normal. Bones and chest wall: No suspicious bony lesions. Overlying soft tissues appear unremarkable. IMPRESSION: Right upper lobe pneumonia. Reviewed by: Steve Crowley on 02/11/2023 7:07 PM PDT Approved by: Steve Crowley on 02/11/2023 7:07 PM PDT Station ID: [id number]
[2023-02-11 19:34] LABS: ABG BASE EXCESS -9.9 mmol/L (-2.0-3.0); ABG HCO3 12.5 mmol/L (22.0-26.0); ABG OXYGEN SATURATION 96 % (94-98); ABG PH 7.41 (7.35-7.45); ABG PO2 74 mmHg (80-100); ABG TCO2 13.1 MMOL/L (21.0-29.0); ALLEN TEST POSITIVE
[2023-02-11 19:36] LABS: ABG PCO2 20 mmHg (34-45)
--- NOTE | 2023-02-11 20:01 | ANESTHESIA PROCEDURE NOTE ---
Diagnosis: Sepsis Procedure: Lumbar Puncture Consent for Procedure(s) Verified and Reviewed: Yes Height and Weight: Height 5 ft 3 in Weight (kg) 68 kg Body Mass Index 24.0 Vital Signs: Temp Pulse Resp BP Pulse Ox O2 Flow Rate 37.3 C 117 H 32 H 114/72 95 2 02/11/23 18:06 02/11/23 18:06 02/11/23 18:06 02/11/23 18:06 02/11/23 18:06 02/10/23 09:00 Allergies bupropion [From Wellbutrin] Allergy (Verified 02/08/23 09:56) Unknown citalopram [From Celexa] Allergy (Verified 02/08/23 09:56) Unknown escitalopram [From Lexapro] Allergy (Verified 02/08/23 09:56) Unknown estrogens, conjugated [From Premarin] Allergy (Verified 02/08/23 09:56) Unknown quetiapine [From Seroquel] Allergy (Verified 02/08/23 09:56) Unknown Sulfa (Sulfonamide Antibiotics) Allergy (Verified 02/08/23 09:56) Itching rash tetracycline [Tetracycline] Allergy (Verified 02/08/23 09:56) Respiratory Requesting Provider: ankit Yung. Monitoring and Equipment: Non-invasive BP, Pulse oximetery Anes. Procedure Start Time: 19:00 Anes. Procedure Stop Time: 19:15 Procedure Notes: Consulted for lumbar puncture for patient with sepsis. Patient was unable to consent due to altered mental status. After informed consent obtained from patient's , patient was turned to left lateral decubitus and her back was prepped with chlorohexadine. Skin over L4-L5 interspace was anesthetized with 2ml of 1% lidocaine. A 20G Quinke needle was introduced with return of clear CSF. 2ml of CSF was collected into each tube numbered 1-4. Specimens were labeled with date, time and initials and placed in the care of nursing staff. Specific tests to be ordered by the hospitalist. Needle removed and bandage applied. Patient status unchanged post procedure.
[2023-02-11] MEDS ORDERED: KETAMINE 500 MG/10 ML VIAL ONE (20:15)
[2023-02-11] MEDS ORDERED: PROPOFOL 200 MG/20 ML VIAL IVP ONE (20:15)
[2023-02-11] MEDS ORDERED: ROCURONIUM 50 MG/5 ML VIAL ONE (20:15)
[2023-02-11] MEDS ORDERED: ETOMIDATE 40 MG/20 ML VIAL IVP ONE (20:15)
[2023-02-11] MEDS ORDERED: PROPOFOL 1000 MG/100 ML 1,000 MG/100 ML BOTTLE IV ONE (20:15)
[2023-02-11] MEDS ORDERED: MIDAZOLAM 2 MG/2 ML VIAL ONE ×2 (20:15→20:24)
[2023-02-11] MEDS ORDERED: SUCCINYLCHOLINE 200 MG/10 ML VIAL ONE (20:16)
[2023-02-11] MEDS ORDERED: MIDAZOLAM 2 MG/2 ML VIAL IVP ONE (20:22)
[2023-02-11] MEDS ORDERED: SUCCINYLCHOLINE 200 MG/10 ML VIAL IVP ONE (20:23)
[2023-02-11] MEDS ORDERED: NOREPINEPHRINE/D5W 8 MG/250 ML BAG IV ONE (20:57)
--- NOTE | 2023-02-11 21:00 | ED Physician Documentation ---
ED Addendum - Addendum Addendum: 02/11/23 21:00 I was asked by hospital nursing staff to intubate this patient. I was not contacted by telehealth, but am told by nursing staff that the telehealth hospitalist was requesting intubation for tachypnea, concerning ABG findings. See procedure note, below. Uncomplicated intubation on first try; chest xray shows right mainstem intubation and thus respiratory instructed to pull tube back 3 cm Procedures - Intubation Time of Intubation: 20:30 Intubation Method: orotracheal Tube Size (cm): 8.0 Medications: Succinylcholine, Versed Breath Sounds after Intubation: right greater than left Intubation Complications: no complications Post Intubation Xray: Yes (ETT tip is in right mainstem bronchus; respiratory then pulled back 3 cm)
[2023-02-11] MEDS ORDERED: LACTATED RINGERS 1,000 ML IV ONE (21:27)
[2023-02-11] MEDS: PROPOFOL 1000 MG/100 ML 1,000 MG/100 ML BOTTLE IV SCH (21:56)
--- NOTE | 2023-02-11 22:06 | XRAY Report ---
PROCEDURE: Post ET Tube 1V CXR INDICATIONS: ETT OGT TECHNIQUE: One view of the chest was acquired. COMPARISON: Prior chest x-ray from 02/11/2023. FINDINGS: Surgical changes and devices: There is an endotracheal tube with the tip approximately 1.5 cm deep i nto the right mainstem bronchus. A new orogastric tube is also present with the tip in the stomach. A left subclavian Port-A-Cath is redemonstrated with tip in the region of the cavoatrial junction. Lungs and pleura: No pleural effusions or pneumothorax. There are persistent confluent right perihil ar airspace opacities consistent with consolidation. Mediastinum: Mediastinal contours appear unchanged. Heart size is normal. Bones and chest wall: No suspicious bony lesions. Overlying soft tissues appear unremarkable. IMPRESSION: 1. Endotracheal tube extends into the right mainstem bronchus. Recommend withdrawal by approximately 4-5 cm. The findings were discussed with patient's nurse Mariza on 02/11/2023 at 10:00 PM who reported that the tube had been withdrawn by 4 cm. 2. Persistent confluent right perihilar consolidation. Reviewed by: Simon Gonzales MD on 02/11/2023 10:04 PM PDT Approved by: Simon Gonzales MD on 02/11/2023 10:04 PM PDT Station ID: [id number]
[2023-02-11] MEDS: NOREPINEPHRINE/D5W 8 MG/250 ML BAG IV SCH (22:47)
--- NOTE | 2023-02-11 22:49 | XRAY Report ---
PROCEDURE: Chest for Line Placement INDICATIONS: Central line, repeat ETT placement TECHNIQUE: One view of the chest was acquired. COMPARISON: Prior chest x-ray studies from 02/11/2023. FINDINGS: Surgical changes and devices: There is interval repositioning of the endotracheal tube with the tip at the alison. An orogastric tube again extends into the stomach. There is a new right internal jugul ar catheter with the tip in the region of the cavoatrial junction. Left subclavian Port-A-Cath appear s unchanged in position. Lungs and pleura: No evidence of pneumothorax. No pleural effusions. Persistent confluent right cami r consolidation redemonstrated. There are increased indistinct opacities in the left lung base likely representing atelectasis. Mediastinum: Mediastinal contours appear unchanged. Heart size is normal. Bones and chest wall: No suspicious bony lesions. Overlying soft tissues appear unremarkable. IMPRESSION: 1. Endotracheal tube tip demonstrated at the level of the alison. Recommend withdrawal by approximate ly 3 cm. Findings discussed with patient's nurse aMriza on 02/11/2023 at 10:45 PM. 2. No evidence for pneumothorax. 3. Persistent right perihilar consolidation. Reviewed by: Simon Gonzales MD on 02/11/2023 10:47 PM PDT Approved by: Simon Gonzales MD on 02/11/2023 10:47 PM PDT Station ID: [id number]
[2023-02-12 00:53] LABS: ABG BASE EXCESS -8.3 mmol/L (-2.0-3.0); ABG HCO3 13.6 mmol/L (22.0-26.0); ABG PH 7.45 (7.35-7.45); ABG PO2 83 mmHg (80-100); ABG TCO2 14.2 MMOL/L (21.0-29.0)
[2023-02-12 00:54] LABS: ABG MODE OF VENTILATION ASSIST/CONTROL; ABG OXYGEN SATURATION 97 % (94-98); ABG RESPIRATORY RATE 14 b/min; ALLEN TEST POSITIVE
[2023-02-12 00:55] LABS: ABG PCO2 20 mmHg (34-45)
[2023-02-12] MEDS: NOREPINEPHRINE/D5W 8 MG/250 ML BAG IV SCH (01:17)
[2023-02-12] MEDS: SODIUM CHLORIDE FLUSH 0.9% 10 ML SYRINGE IVP SCH ×2 (01:17→09:24)
[2023-02-12] MEDS ORDERED: ACETAMINOPHEN 1,000 MG/100 ML 1,000 MG/100 ML BAG IV PRN (01:29)
[2023-02-12] MEDS ORDERED: LACTATED RINGERS 1,000 ML IV ONE (01:30)
[2023-02-12] MEDS ORDERED: METOPROLOL 5 MG/5 ML VIAL IVP PRN (01:30)
[2023-02-12] MEDS: LEVALBUTEROL 1.25 MG/3 ML NEB INH SCH ×4 (01:41→15:35)
[2023-02-12] MEDS: DEXTROSE 5%-0.9% NACL 1,000 ML IV SCH ×2 (01:49→11:58)
[2023-02-12] MEDS: metroNIDAZOLE 500 MG/100 ML 500 MG/100 ML BAG IV SCH ×2 (03:10→12:31)
[2023-02-12] MEDS: CEFEPIME 2 GM in SODIUM CHLORIDE 0.9% MINIBAG 100 ML IV SCH ×2 (03:11→11:42)
[2023-02-12] MEDS: PROPOFOL 1000 MG/100 ML 1,000 MG/100 ML BOTTLE IV SCH ×3 (04:40→12:32)
[2023-02-12] MEDS: DEXTROSE 5% 1,000 ML IV SCH ×3 (04:59→16:47)
[2023-02-12] MEDS: VENLAFAXINE 37.5 MG TABLET NG SCH ×2 (04:59→14:36)
[2023-02-12 05:23] LABS: ABG PH 7.37 (7.35-7.45)
[2023-02-12 05:23] LABS: BASOPHILS % (AUTO) 1.1 %; EOSINOPHILS % (AUTO) 0.1 %; HCT - HEMATOCRIT 32.1 % (37.0-47.0); HGB - HEMOGLOBIN 10.6 g/dL (12.0-16.0); LYMPHOCYTES % (AUTO) 13.7 %; MEAN CORPUSCULAR HEMOGLOBIN 31.6 pg (27.0-31.0); MEAN CORPUSCULAR VOLUME 95.8 fL (81.0-99.0); MEAN PLATELET VOLUME 10.9 fL (7.9-10.8); MONOCYTES % (AUTO) 10.5 %; NEUTROPHILS % (AUTO) 63.4 %; PLT - PLATELET COUNT 112 10^3/uL (130-450); RED BLOOD COUNT 3.35 10^6/uL (4.20-5.40); RED CELL DISTRIBUTION WIDTH 18.6 % (12.0-15.0); WHITE BLOOD COUNT 22.1 x10^3/uL (4.8-10.8)
[2023-02-12 05:24] LABS: ABG BASE EXCESS -9.6 mmol/L (-2.0-3.0); ABG HCO3 14.3 mmol/L (22.0-26.0); ABG MODE OF VENTILATION ASSIST/CONTROL; ABG OXYGEN SATURATION 96 % (94-98); ABG PCO2 26 mmHg (34-45); ABG PO2 88 mmHg (80-100); ABG RESPIRATORY RATE 14 b/min; ABG TCO2 15.1 MMOL/L (21.0-29.0); ALLEN TEST POSITIVE
[2023-02-12 05:24] LABS: VBG PH 7.362 (7.31-7.41)
[2023-02-12 05:25] LABS: CALCIUM, IONIZED 1.31 mmol/L (1.15-1.33)
[2023-02-12 05:29] LABS: ABNORMAL LYMPHS % (MANUAL) 0 %
[2023-02-12 05:43] LABS: ALBUMIN 1.9 g/dL (3.2-5.5); ALBUMIN/GLOBULIN RATIO 0.8 (1.0-2.2); BILIRUBIN,TOTAL 3.4 mg/dL (0.2-1.0); CALCIUM 10.6 mg/dL (8.5-10.3); CREATININE 0.7 mg/dL (0.4-1.0); PHOSPHORUS 2.2 mg/dL (2.5-4.6); POTASSIUM 4.8 mmol/L (3.5-5.0); TOTAL PROTEIN 4.4 g/dL (6.7-8.2)
[2023-02-12 05:45] LABS: BAND NEUTROPHILS % (MANUAL) 7 %; LYMPHOCYTES % (MANUAL) 23 %; METAMYELOCYTES % (MANUAL) 4 %; MONOCYTES # (MANUAL) 0.4 10^3/uL (0.0-1.0); MYELOCYTES % (MANUAL) 6 %; NUCLEATED RBC (MANUAL) 18 %
[2023-02-12 05:47] LABS: PLATELET MORPHOLOGY NORMAL APPEARANCE (NORMAL)
[2023-02-12 05:48] LABS: DIFFERENTIAL COMMENT MANUAL DIFFERENTIAL; PLATELET ESTIMATE, MANUAL DECREASED (<130,000) (NORMAL); WBC MORPHOLOGY (MULTIPLE) NORMAL APPEARANCE (NORMAL)
[2023-02-12 05:58] LABS: NEUTROPHILS # (MANUAL) 14.2 10^3/uL (1.5-6.6); corrected WHITE BLOOD COUNT 21.9 10^3/uL (4.8-10.8)
[2023-02-12] MEDS: PANTOPRAZOLE 40 MG VIAL IVP SCH (06:18)
--- NOTE | 2023-02-12 07:43 | ANESTHESIA PROCEDURE NOTE ---
Anesth Central Line Template - Central Line Central Line Preparation: Consent Obtained (from patient's spouse), Time out completed, Ultrasound used, Sterile prep and drape Central line location: Right IJ Central line type: Triple lumen Central line catheter tip site resides: Superior vena cava (SVC) Central line aftercare: Chlorhexidine disc placed, Secured, Placement confirmed, No pneumothorax, No complications, Bundle checklist complete, Pt tolerated well Other Info/Details: Consulted to place central line in patient with worsening sepsis requiring vasopressors. Right neck prepped with chlorohexadine. Full sterile drape, gown, gloves and mask utilized. Right neck insertion site was localized with 3ml of 1% lidocaine. Ultrasound was used to image right IJ vein and access obtained with introducer needle. Wire advanced with ease. A 20 cm triple lumen catheter was inserted over the wire and advanced to 16cm. Wire removed and all 3 ports aspirate blood and flush with ease. Line was sutured in place and x-ray obtained post op showed tip in the cavoatrial junction. Patient tolerated well.
[2023-02-12] MEDS ORDERED: SODIUM PHOSPHATE 15 MMOL in SODIUM CHLORIDE 0.9% 250 ML IV ONE (08:00)
[2023-02-12] MEDS: SODIUM CHLORIDE FLUSH 0.9% 10 ML SYRINGE IVP PRN ×5 (08:17→14:37)
[2023-02-12 08:28] LABS: CSF - GLUCOSE 58 mg/dL (45-70); TOTAL PROTEIN,CSF 40 mg/dL (15-60)
[2023-02-12 08:56] LABS: CLARITY,CSF CLEAR (CLEAR); COLOR,CSF PINK (COLORLESS); CSF TUBE # CSF TUBE# 3; CSF XANTHOCHROMIA ABSENT (ABSENT)
[2023-02-12 08:57] LABS: RED BLOOD CELL,CSF 1825 /mm^3 (0-1); WHITE BLOOD CELL,CSF 0 /mm^3 (0-5)
[2023-02-12] MEDS ORDERED: VALPROATE INJ 250 MG in SODIUM CHLORIDE 0.9% 100ML 100 ML IV SCH (09:00)
[2023-02-12] MEDS: ARIPiprazole 5 MG TABLET NG SCH (09:22)
[2023-02-12] MEDS: polyethylene glycoL 3350 17 GM PACKET PO SCH (09:23)
[2023-02-12] MEDS: HEPARIN 5,000 UNIT/ML VIAL SUBQ SCH (09:23)
[2023-02-12] MEDS ORDERED: iohexoL-300 100 ML VIAL ONE (10:35)
--- NOTE | 2023-02-12 11:57 | CT Report ---
PROCEDURE: ABDOMEN/PELVIS W INDICATIONS: Sepsis, unknown origon, elev LFTs CONTRAST: 100ml omni 300 TECHNIQUE: After the administration of IV and oral contrast, 5 mm thick sections acquired from the diaphragms to the symphysis. 5 mm thick coronal and sagittal reformats were acquired. For radiation dose reducti on, the following was used: automated exposure control, adjustment of mA and/or kV according to dimas ent size. COMPARISON: 02/08/2023 FINDINGS: Image quality: Excellent. Lung bases and heart: Patient's known large right lower lobe mass is again seen, not significantly ch anged from prior studies. Small infiltrates/atelectasis and trace bilateral pleural effusion are seen in posterior medial aspect of bilateral lung bases. Heart size is enlarged, no pericardial effusion. . Liver: Heterogeneous liver parenchymal density is again seen, no definite hepatic lesion. Gallbladder and biliary tree: Gallbladder is distended, no calcified gallstones or gallbladder wall t hickening. No biliary ductal dilatation. Spleen: No splenomegaly. Pancreas: No pancreatic ductal dilation. Adrenals: No adrenal nodule. Kidneys and ureters: No hydronephrosis. No renal cystic lesion which requires follow up. No solid mas s. Bowel and peritoneum: Stomach is distended and with anterior tube tip in the mid stomach lumen. There is no evidence of bowel obstruction. No gross abnormal bowel wall thickening is seen. Sigmoid divert iculosis is seen. Small amount of free fluid is noted in lower pelvis. No gross peritoneal free air. Lymph nodes: No central or retroperitoneal adenopathy. Vessels: No infrarenal aortic aneurysm. PELVIS Reproductive organs: Unremarkable. Bladder: Cervantes catheter is seen within the decompressed urinary bladder. Pelvic lymph nodes: No pelvic adenopathy by size criteria. Bones: No aggressive osseous abnormality. Other: No significant ventral or inguinal hernia. Generalized anasarca is seen. IMPRESSION: 1. Interval development of generalized anasarca and small amount of free fluid in lower pelvis. No pe ritoneal free air. 2. No bowel obstruction or abnormal bowel wall thickening. Fluid distended stomach lumen contains NG tube. No abscess collection. 3. Interval development of small bilateral lower lobe infiltrates versus atelectasis with trace amoun t of bilateral pleural effusion. Right lower lobe mass is not significantly changed in size and appea dorcas extending to right hilar region. 4. Heterogeneous liver parenchymal echotexture unchanged from prior studies and may represent hepatic steatosis. Underlying metastatic hepatic lesions cannot be entirely excluded. Reviewed by: Nathaniel Gregg MD on 02/12/2023 10:56 AM RAHEL Approved by: Nathaniel Gregg MD on 02/12/2023 10:56 AM [facility] Station ID: [id number]
[2023-02-12] MEDS ORDERED: fentaNYL 2,500 MCG/250 ML 2,500 MCG/250 ML BAG IV SCH (12:00)
[2023-02-12] MEDS ORDERED: fentaNYL 2,500 MCG in SODIUM CHLORIDE 0.9% 200 ML IV SCH (12:00)
[2023-02-12] MEDS ORDERED: DEXTROSE 50% ABBOJECT 25 GM/50 ML SYRINGE IVP ONE (12:13)
--- NOTE | 2023-02-12 13:11 | HEMATOLOGY CONSULT ---
Hematology Consultation: Date of Visit: [ ] Reason for Consult: [ ] ASSESSMENT AND PLAN: 1. [ ] 2. [ ] 3. [ ] 4. Follow-up plan: [ ] TIME SPENT: E/M code was selected based on high Complexity based decision making and time [ ] minutes spent on the date of encounter reviewing pertinent history and previous diagnostics, including outside facility medical records, performing medically appropriate examination and evaluation, ordering diagnostic tests and/or medications, counseling, and education to patient/family/caregiver, referring and communicating with other healthcare professionals, documenting cl inical information in the electronic health record, independently interpreting results and communicating results to the patient/family/caregiver. This excludes activities performed by clinical staff. CC/HPI: This is a 72 y/o F with past medical history significant for [ ] who has been referred to hematology/oncology clinic for further evaluation and management of [ ] Today, Review of Systems: All other systems negative. Past Medical/Surgical/Family/Social History: [ ] Physical Examination: General: No acute distress. Vitals per chart. HEENT: No sclera icterus. Oropharynx clear. Neck: No thyromegaly. Lymph nodes: No cervical, supraclavicular, axillary, epitrochlear, or inguinal node adenopathy. Lungs: Clear to auscultation and percussion. Heart: Regular rate and rhythm, no gallops or rubs heard. Breasts: Bilateral not examined. Abdomen: Soft, nontender, normal bowel sounds. No palpable hepatosplenomegaly. No ascites appreciated. Extremities: No cyanosis, clubbing; legs no pitting edema. Skeletal: Nontender to percussion and palpation over spine, ribs, costovertebral angle. Skin: No petechiae, or purpura. No Rash. Neuro: Alert, oriented, appropriate, able to participate in discussion and decisions. Cranial nerves 3, 4, 6, 7, 9, 10, 11, and 12 intact. Gait normal. LAB/PATHOLOGY REVIEW: Available labs reviewed. IMAGING: Available imaging reviewed. Clinical Data: Allergies bupropion [From Wellbutrin] Allergy (Verified 02/08/23 09:56) Unknown citalopram [From Celexa] Allergy (Verified 02/08/23 09:56) Unknown escitalopram [From Lexapro] Allergy (Verified 02/08/23 09:56) Unknown estrogens, conjugated [From Premarin] Allergy (Verified 02/08/23 09:56) Unknown quetiapine [From Seroquel] Allergy (Verified 02/08/23 09:56) Unknown Sulfa (Sulfonamide Antibiotics) Allergy (Verified 02/08/23 09:56) Itching tetracycline [Tetracycline] Allergy (Verified 02/08/23 09:56) Respiratory Home Medications Divalproex Sodium [Depakote] 250 mg PO DAILY 10/08/16 [History Last Taken 02/05/23] Venlafaxine HCl [Effexor Xr] 150 mg PO DAILY 10/08/16 [History Last Taken 02/05/23] ARIPiprazole [Abilify] 5 mg PO DAILY 12/21/22 [History Last Taken 02/05/23] Dextroamphetamine/Amphetamine [Dextroamp-Amphetamine 5 mg Tab] 5 mg PO DAILY 12/21/22 [History Last Taken 02/05/23] Estradiol [Vagifem] 10 mcg VG Q7D 12/21/22 [History Last Taken Unknown] Acetaminophen [Tylenol] 650 mg PO Q6H PRN 02/03/23 [History Last Taken 02/02/23] Aspirin [Aspirin EC] 81 mg PO DAILY 02/08/23 [History Last Taken Unknown] Divalproex Dr [Depakote Dr] 500 mg PO QPM 02/08/23 [History Last Taken Unknown] Venlafaxine ER [Effexor ER] 75 mg PO QPM 02/08/23 [History Last Taken Unknown] Vital Signs Temp Pulse Resp BP Pulse Ox O2 Flow Rate 37.2 C 106 H 20 115/55 L 100 2 02/12/23 13:00 02/12/23 13:00 02/12/23 13:00 02/12/23 13:00 02/12/23 13:00 02/10/23 09:00 Recent Lab Results 02/09/23 14:45: Lactic Acid 3.8 H* 02/09/23 17:59: Lactic Acid 4.2 H* 02/09/23 17:59: Potassium 3.6, Phosphorus 2.2 L, Magnesium 1.7 02/09/23 17:59: VBG pH 7.438 H, Ionized Calcium 1.36 H 02/09/23 18:09: POC Whole Bld Glucose 101 H 02/09/23 21:12: Lactic Acid 3.7 H* 02/09/23 23:54: POC Whole Bld Glucose 95 02/10/23 00:54: Lactic Acid 4.0 H* 02/10/23 00:54: Magnesium 2.3 02/10/23 03:41: WBC 16.2 H, RBC 3.28 L, Hgb 10.0 L, Hct 31.2 L, MCV 95.1, MCH 30.5, MCHC 32.1, RDW 17.2 H, Plt Count 105 L, MPV 10.6, Neut # (Auto) Not Reportable, Lymph # (Auto) Not Reportable, Blaine # (Auto) Not Reportable, Eos # (Auto) Not Reportable, Baso # (Auto) Not Reportable, Absolute Nucleated RBC Not Reportable, Total Counted 100, Band Neuts % (Manual) 6, Abnorm Lymph % (Manual) 0, Metamyelocytes % 2 H, Nucleated RBC % Not Reportable, Neutrophils # (Manual) 13.8 H, Lymphocytes # (Manual) 1.8, Monocytes # (Manual) 0.3, Eosinophils # (Manual) 0.0, Basophils # (Manual) 0.0, Nucleated RBCs 2, Differential Comment MANUAL DIFFERENTIAL, WBC Morphology NORMAL APPEARANCE, Platelet Estimate DECREASED (<130,000), Platelet Morphology NORMAL APPEARANCE, RBC Morph Micro Appear 1+ POLYCHROMASIA 02/10/23 03:41: Sodium 133 L, Potassium 3.5, Chloride 106, Carbon Dioxide 19 L, Anion Gap 8.0, BUN 24 H, Creatinine 0.5, Estimated GFR (MDRD) 121, Glucose 95, Calcium 9.6, Phosphorus 2.1 L, Magnesium 2.2, Total Bilirubin 2.0 H, AST 1355 H, ALT 595 H, Alkaline Phosphatase 260 H, Total Protein 4.6 L, Albumin 2.1 L, Globulin 2.5, Albumin/Globulin Ratio 0.8 L 02/10/23 03:41: Troponin I High Sens 71.0 H* 02/10/23 03:41: VBG pH 7.388, Ionized Calcium 1.38 H 02/10/23 06:05: POC Whole Bld Glucose 94 02/10/23 06:06: Lactic Acid 3.6 H* 02/10/23 09:20: Lactic Acid 3.7 H* 02/10/23 12:08: POC Whole Bld Glucose 60 L* 02/10/23 12:24: POC Whole Bld Glucose 130 H 02/10/23 12:39: Phosphorus 1.9 L, Magnesium 2.0 02/10/23 12:39: Potassium 3.7 02/10/23 18:04: POC Whole Bld Glucose 81 02/10/23 19:53: Potassium 3.9, Phosphorus 2.2 L 02/10/23 23:52: POC Whole Bld Glucose 63 L 02/11/23 00:10: POC Whole Bld Glucose 60 L* 02/11/23 00:58: POC Whole Bld Glucose 159 H 02/11/23 04:34: WBC 15.8 H, RBC 3.45 L, Hgb 10.5 L, Hct 31.9 L, MCV 92.5, MCH 30.4, MCHC 32.9, RDW 17.6 H, Plt Count 111 L, MPV 10.6, Neut # (Auto) Not Reportable, Lymph # (Auto) Not Reportable, [place] # (Auto) Not Reportable, Eos # (Auto) Not Reportable, Baso # (Auto) Not Reportable, Absolute Nucleated RBC Not Reportable, Total Counted 100, Band Neuts % (Manual) 5, Abnorm Lymph % (Manual) 0, Metamyelocytes % 2 H, Myelocytes % 4 H, Nucleated RBC % Not Reportable, Neutrophils # (Manual) 12.5 H, Lymphocytes # (Manual) 1.4 L, Monocytes # (Manual) 0.9, Eosinophils # (Manual) 0.0, Basophils # (Manual) 0.0, Nucleated RBCs 4, Differential Comment MANUAL DIFFERENTIAL, WBC Morphology NORMAL APPEARANCE, Platelet Estimate DECREASED (<130,000), Platelet Morphology NORMAL APPEARANCE, RBC Morph Micro Appear 1+ MARTINE CELLS 02/11/23 04:34: Sodium 135, Potassium 3.9, Chloride 110, Carbon Dioxide 19 L, Anion Gap 6.0, BUN 21 H, Creatinine 0.5, Estimated GFR (MDRD) 121, Glucose 98, Calcium 10.1, Phosphorus 1.6 L, Magnesium 2.0, Total Bilirubin 2.6 H, AST 953 H, ALT 575 H, Alkaline Phosphatase 282 H, Total Protein 4.5 L, Albumin 2.0 L, Globulin 2.5, Albumin/Globulin Ratio 0.8 L 02/11/23 04:34: Troponin I High Sens 31.9 H* 02/11/23 04:34: VBG pH 7.421 H, Ionized Calcium 1.41 H 02/11/23 05:56: POC Whole Bld Glucose 86 02/11/23 12:38: POC Whole Bld Glucose 80 02/11/23 16:44: POC Whole Bld Glucose 68 L 02/11/23 17:17: POC Whole Bld Glucose 192 H 02/11/23 18:35: Lactic Acid 5.7 H* 02/11/23 18:35: VBG pH 7.365, VBG pCO2 29.1 L, VBG pO2 39.1, VBG HCO3 16.3 L, VBG Total CO2 17.2 L, VBG O2 Saturation 75.0, VBG Base Excess -7.7 L 02/11/23 19:15: CSF Color PINK, CSF Clarity CLEAR, Xanthrochromic ABSENT, CSF WBC 0, CSF RBC 1825 H, CSF Cell Count Tube # CSF TUBE# 3, CSF Glucose 58, CSF Total Protein 40 02/11/23 19:25: Bld Gas Analysis Time .33, Sample Site RIGHT RADIAL, ABG pH 7.41, ABG pCO2 20 L*, ABG pO2 74 L, ABG HCO3 12.5 L, ABG Total CO2 13.1 L, ABG O2 Saturation 96, ABG Base Excess -9.9 L, Gonzales Test POSITIVE, FiO2 21.00 02/11/23 19:36: Fibrinogen 262 02/12/23 00:15: POC Whole Bld Glucose 78 02/12/23 00:40: Bld Gas Analysis Time 52, Sample Site RIGHT RADIAL, ABG pH 7.45, ABG pCO2 20 L*, ABG pO2 83, ABG HCO3 13.6 L, ABG Total CO2 14.2 L, ABG O2 Saturation 97, ABG Base Excess -8.3 L, Gonzales Test POSITIVE, Respiration Rate 14, O2 Delivery Device VENTILATOR, Vent Mode ASSIST/CONTROL, FiO2 30.00, Tidal Volume 400, PEEP 5 02/12/23 05:10: WBC 22.1 H, Corrected WBC 21.9 H, RBC 3.35 L, Hgb 10.6 L, Hct 32.1 L, MCV 95.8, MCH 31.6 H, MCHC 33.0, RDW 18.6 H, Plt Count 112 L, MPV 10.9 H, Neut # (Auto) Not Reportable, Lymph # (Auto) Not Reportable, [place] # (Auto) Not Reportable, Eos # (Auto) Not Reportable, Baso # (Auto) Not Reportable, Absolute Nucleated RBC Not Reportable, Total Counted 100, Band Neuts % (Manual) 7, Abnorm Lymph % (Manual) 0, Metamyelocytes % 4 H, Myelocytes % 6 H, Nucleated RBC % Not Reportable, Neutrophils # (Manual) 14.2 H, Lymphocytes # (Manual) 5.0 H, Monocytes # (Manual) 0.4, Eosinophils # (Manual) 0.0, Basophils # (Manual) 0.0, Nucleated RBCs 18, Differential Comment MANUAL DIFFERENTIAL, WBC Morphology NORMAL APPEARANCE, Platelet Estimate DECREASED (<130,000), Platelet Morphology NORMAL APPEARANCE, RBC Morph Micro Appear 1+ POLYCHROMASIA 02/12/23 05:10: Sodium 134 L, Potassium 4.8, Chloride 108, Carbon Dioxide 16 L, Anion Gap 10.0, BUN 27 H, Creatinine 0.7, Estimated GFR (MDRD) 82 L, Glucose 88, Calcium 10.6 H, Phosphorus 2.2 L, Magnesium 2.0, Total Bilirubin 3.4 H, AST 1178 H, ALT 589 H, Alkaline Phosphatase 284 H, Total Protein 4.4 L, Albumin 1.9 L, Globulin 2.5, Albumin/Globulin Ratio 0.8 L 02/12/23 05:10: VBG pH 7.362, Ionized Calcium 1.31 02/12/23 05:10: Ammonia 53.4 H 02/12/23 05:10: Triglycerides 293 H 02/12/23 05:10: Lipase 367 H 02/12/23 05:15: Bld Gas Analysis Time 05, Sample Site RIGHT RADIAL, ABG pH 7.37, ABG pCO2 26 L, ABG pO2 88, ABG HCO3 14.3 L, ABG Total CO2 15.1 L, ABG O2 Saturation 96, ABG Base Excess -9.6 L, Gonzales Test POSITIVE, Respiration Rate 14, O2 Delivery Device VENTILATOR, Vent Mode ASSIST/CONTROL, FiO2 30.00, Tidal Volume 350, PEEP 5 02/12/23 09:11: Lactic Acid 6.4 H* 02/12/23 11:56: POC Whole Bld Glucose 74 02/12/23 12:43: POC Whole Bld Glucose 81
[2023-02-12 13:16] LABS: INR 1.9 (0.8-1.2); PT - PROTHROMBIN TIME 20.2 secs (9.9-12.6)
[2023-02-12] MEDS ORDERED: FUROSEMIDE 20 MG/2 ML VIAL IVP SCH (14:00)
--- NOTE | 2023-02-12 14:37 | ONCOLOGY FOLLOW UP ---
Oncology Follow-Up: ASSESSMENT AND PLAN: 1. 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-We again discussed the patient's most recent clinical course with imaging reviewed which shows ongoing persistence of known right-sided lung cancer however with no evidence of hepatic metastases, no significant progression of disease from baseline imaging from 02/04/2023, no evidence of SVC syndrome We discussed that while paraneoplastic symptoms can be associated with small cell lung cancers, the most classic ones are typically neurological such as with Lambert-Eaton syndrome, and can also be associated with hematologic abnormalities as well as hypercalcemia of malignancy While she does have a hypercalcemia of malignancy this has been relatively well controlled not markedly elevated, and would not explain her severe transaminitis that is more concerning for shock liver In theory could consider carboplatin/etoposide however given critical medically unstable condition, it is unclear whether she would truly benefit from chemotherapy and we discussed strong concerns with family that administering chemotherapy at this time may provide more harm than benefit -Carboplatin does not have any strict hepatic clearance related dose adjustment, However there are concerns for etoposide based toxicity as underlying hepatic dysfunction may reduce the metabolism of and therefore increase chances of E [place] related toxicities Particularly as her hepatic dysfunction is not stable at this time would not recommend administration of chemotherapy at this time In addition due to hyperbilirubinemia would still need to dose reduce more than 50% even if she would be appropriate for etoposide based chemotherapy -We will continue to monitor for now -If patient's hepatic function and clinical status were to improve could consider inpatient chemotherapy if this for even an option however would not be able to do this while patient remains at [facility] -If inpatient chemotherapy were to be considered would need to consider dose reduced treatment 2. Grade 3-4 transaminitis in the setting of shock liver versus DIC-patient with transaminitis on admission, multiple CT abdomen and pelvis imaging reviewed with no clear etiology for severe transaminitis, no masses that are overtly obvious, no CBD that would explain her severe transaminitis On review she was noted to be severely hypotensive with systolic blood pressure in the 80s on admission and as such this could potentially precipitate shock liver Other differentials could also include DIC either from infection versus her underlying malignancy -Consider transfer to Center with higher level of care for ongoing supportive management -If infection and DIC from other nonmalignant causes ruled out, would need to consider DIC as a consequence of her underlying malignancy as a possibility 3. Prognosis-discussed that right now her acute prognosis is likely to be dictated by her acute medical issues including sepsis, hypotension requiring pressors, and shock liver versus DIC -Prognosis remains extremely guarded, and is currently dictated more from likely nonmalignant medical issues TIME SPENT: E/M code was selected based on high Complexity based decision making and time [ 60] minutes spent on the date of encounter reviewing pertinent history and previous diagnostics, including outside facility medical records, performing medically appropriate examination and evaluation, ordering diagnostic tests and/or medications, counseling, and education to patient/family/caregiver, referring and communicating with other healthcare professionals, documenting clinical information in the electronic health record, independently interpreting results and communicating results to the patient/family/caregiver. This excludes activities performed by clinical staff. CC/HPI: This is a 72-year-old woman with recently diagnosed limited stage small cell carcinoma, Seen in oncology clinic 2 weeks ago with plans to start carboplatin/etoposide urgently She had restaging scans on 02/04/2023 with no hepatic metastases no other distant metastatic disease however with ongoing persistence of known right limited stage small cell carcinoma However in the interim over the last week she was admitted with worsening mental status with labs on admission showing significant transaminitis with blood pressure systolic initially as low as the 80s She has been admitted to the ICU with worsening ongoing transaminitis repeat CT chest abdomen pelvis with no obvious hepatic etiology on imaging for transaminitis, CT chest with no significant interval growth of malignant tumor however with some patchy infiltrative process MRI brain done as part of staging on 01/2023 was negative for any concerning obvious lesions Patient seen in as an inpatient at bedside today surrounded by family status post intubation over the last 24 hours due to deteriorating mental status worsening respiratory rate At bedside she remains intubated on Levophed Oncology History: 1.Small cell carcinoma of RLL , limited stage since 12/2022 -Presented to ED with chest pain -12/21/2022 CT scan with pulmonary nodularity with right perihilar lymphadenopathy with enlarged mediastinal lymph nodes -Biopsy right lower lobe mass positive for small cell carcinoma on IHC -PET scan pending Review of Systems: All other systems negative. ECOG: [2-3 ] Past Medical/Surgical/Family/Social History: Medical history: Arthritis, and depression Surgical History: laparotomy for ruptured corpus luteum and left ectopic in 1975. At that time her left fallopian tube and a portion of her left ovary were removed. She subsequently went on to have several more pregnancies and delivered normal vaginally. 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 IMAGING: Available imaging reviewed. Clinical Data: Allergies bupropion [From Wellbutrin] Allergy (Verified 02/08/23 09:56) Unknown citalopram [From Celexa] Allergy (Verified 02/08/23 09:56) Unknown escitalopram [From Lexapro] Allergy (Verified 02/08/23 09:56) Unknown estrogens, conjugated [From Premarin] Allergy (Verified 02/08/23 09:56) Unknown quetiapine [From Seroquel] Allergy (Verified 02/08/23 09:56) Unknown Sulfa (Sulfonamide Antibiotics) Allergy (Verified 02/08/23 09:56) Itching tetracycline [Tetracycline] Allergy (Verified 02/08/23 09:56) Respiratory Home Medications Divalproex Sodium [Depakote] 250 mg PO DAILY 10/08/16 [History Last Taken 02/05/23] Venlafaxine HCl [Effexor Xr] 150 mg PO DAILY 10/08/16 [History Last Taken 02/05/23] ARIPiprazole [Abilify] 5 mg PO DAILY 12/21/22 [History Last Taken 02/05/23] Dextroamphetamine/Amphetamine [Dextroamp-Amphetamine 5 mg Tab] 5 mg PO DAILY 12/21/22 [History Last Taken 02/05/23] Estradiol [Vagifem] 10 mcg VG Q7D 12/21/22 [History Last Taken Unknown] Acetaminophen [Tylenol] 650 mg PO Q6H PRN 02/03/23 [History Last Taken 02/02/23] Aspirin [Aspirin EC] 81 mg PO DAILY 02/08/23 [History Last Taken Unknown] Divalproex Dr [Depakote Dr] 500 mg PO QPM 02/08/23 [History Last Taken Unknown] Venlafaxine ER [Effexor ER] 75 mg PO QPM 02/08/23 [History Last Taken Unknown] Vital Signs Temp Pulse Resp BP Pulse Ox O2 Flow Rate 37.2 C 105 H 16 121/62 100 2 02/12/23 13:00 02/12/23 14:00 02/12/23 14:00 02/12/23 14:00 02/12/23 14:00 02/10/23 09:00 Recent Lab Results 02/09/23 14:45: Lactic Acid 3.8 H* 02/09/23 17:59: Lactic Acid 4.2 H* 02/09/23 17:59: Potassium 3.6, Phosphorus 2.2 L, Magnesium 1.7 02/09/23 17:59: VBG pH 7.438 H, Ionized Calcium 1.36 H 02/09/23 18:09: POC Whole Bld Glucose 101 H 02/09/23 21:12: Lactic Acid 3.7 H* 02/09/23 23:54: POC Whole Bld Glucose 95 02/10/23 00:54: Lactic Acid 4.0 H* 02/10/23 00:54: Magnesium 2.3 02/10/23 03:41: WBC 16.2 H, RBC 3.28 L, Hgb 10.0 L, Hct 31.2 L, MCV 95.1, MCH 30.5, MCHC 32.1, RDW 17.2 H, Plt Count 105 L, MPV 10.6, Neut # (Auto) Not Reportable, Lymph # (Auto) Not Reportable, Kimball # (Auto) Not Reportable, Eos # (Auto) Not Reportable, Baso # (Auto) Not Reportable, Absolute Nucleated RBC Not Reportable, Total Counted 100, Band Neuts % (Manual) 6, Abnorm Lymph % (Manual) 0, Metamyelocytes % 2 H, Nucleated RBC % Not Reportable, Neutrophils # (Manual) 13.8 H, Lymphocytes # (Manual) 1.8, Monocytes # (Manual) 0.3, Eosinophils # (Manual) 0.0, Basophils # (Manual) 0.0, Nucleated RBCs 2, Differential Comment MANUAL DIFFERENTIAL, WBC Morphology NORMAL APPEARANCE, Platelet Estimate DECREASED (<130,000), Platelet Morphology NORMAL APPEARANCE, RBC Morph Micro Appear 1+ POLYCHROMASIA 02/10/23 03:41: Sodium 133 L, Potassium 3.5, Chloride 106, Carbon Dioxide 19 L, Anion Gap 8.0, BUN 24 H, Creatinine 0.5, Estimated GFR (MDRD) 121, Glucose 95, Calcium 9.6, Phosphorus 2.1 L, Magnesium 2.2, Total Bilirubin 2.0 H, AST 1355 H, ALT 595 H, Alkaline Phosphatase 260 H, Total Protein 4.6 L, Albumin 2.1 L, Globulin 2.5, Albumin/Globulin Ratio 0.8 L 02/10/23 03:41: Troponin I High Sens 71.0 H* 02/10/23 03:41: VBG pH 7.388, Ionized Calcium 1.38 H 02/10/23 06:05: POC Whole Bld Glucose 94 02/10/23 06:06: Lactic Acid 3.6 H* 02/10/23 09:20: Lactic Acid 3.7 H* 02/10/23 12:08: POC Whole Bld Glucose 60 L* 02/10/23 12:24: POC Whole Bld Glucose 130 H 02/10/23 12:39: Phosphorus 1.9 L, Magnesium 2.0 02/10/23 12:39: Potassium 3.7 02/10/23 18:04: POC Whole Bld Glucose 81 02/10/23 19:53: Potassium 3.9, Phosphorus 2.2 L 02/10/23 23:52: POC Whole Bld Glucose 63 L 02/11/23 00:10: POC Whole Bld Glucose 60 L* 02/11/23 00:58: POC Whole Bld Glucose 159 H 02/11/23 04:34: WBC 15.8 H, RBC 3.45 L, Hgb 10.5 L, Hct 31.9 L, MCV 92.5, MCH 30.4, MCHC 32.9, RDW 17.6 H, Plt Count 111 L, MPV 10.6, Neut # (Auto) Not Reportable, Lymph # (Auto) Not Reportable, Kimball # (Auto) Not Reportable, Eos # (Auto) Not Reportable, Baso # (Auto) Not Reportable, Absolute Nucleated RBC Not Reportable, Total Counted 100, Band Neuts % (Manual) 5, Abnorm Lymph % (Manual) 0, Metamyelocytes % 2 H, Myelocytes % 4 H, Nucleated RBC % Not Reportable, Neutrophils # (Manual) 12.5 H, Lymphocytes # (Manual) 1.4 L, Monocytes # (Manual) 0.9, Eosinophils # (Manual) 0.0, Basophils # (Manual) 0.0, Nucleated RBCs 4, Differential Comment MANUAL DIFFERENTIAL, WBC Morphology NORMAL APPEARANCE, Platelet Estimate DECREASED (<130,000), Platelet Morphology NORMAL APPEARANCE, RBC Morph Micro Appear 1+ MARTINE CELLS 02/11/23 04:34: Sodium 135, Potassium 3.9, Chloride 110, Carbon Dioxide 19 L, Anion Gap 6.0, BUN 21 H, Creatinine 0.5, Estimated GFR (MDRD) 121, Glucose 98, Calcium 10.1, Phosphorus 1.6 L, Magnesium 2.0, Total Bilirubin 2.6 H, AST 953 H, ALT 575 H, Alkaline Phosphatase 282 H, Total Protein 4.5 L, Albumin 2.0 L, Globulin 2.5, Albumin/Globulin Ratio 0.8 L 02/11/23 04:34: Troponin I High Sens 31.9 H* 02/11/23 04:34: VBG pH 7.421 H, Ionized Calcium 1.41 H 02/11/23 05:56: POC Whole Bld Glucose 86 02/11/23 12:38: POC Whole Bld Glucose 80 02/11/23 16:44: POC Whole Bld Glucose 68 L 02/11/23 17:17: POC Whole Bld Glucose 192 H 02/11/23 18:35: Lactic Acid 5.7 H* 02/11/23 18:35: VBG pH 7.365, VBG pCO2 29.1 L, VBG pO2 39.1, VBG HCO3 16.3 L, VBG Total CO2 17.2 L, VBG O2 Saturation 75.0, VBG Base Excess -7.7 L 02/11/23 19:15: CSF Color PINK, CSF Clarity CLEAR, Xanthrochromic ABSENT, CSF WBC 0, CSF RBC 1825 H, CSF Cell Count Tube # CSF TUBE# 3, CSF Glucose 58, CSF Total Protein 40 02/11/23 19:25: Bld Gas Analysis Time 19.33, Sample Site RIGHT RADIAL, ABG pH 7.41, ABG pCO2 20 L*, ABG pO2 74 L, ABG HCO3 12.5 L, ABG Total CO2 13.1 L, ABG O2 Saturation 96, ABG Base Excess -9.9 L, Gonzales Test POSITIVE, FiO2 21.00 02/11/23 19:36: Fibrinogen 262 02/12/23 00:15: POC Whole Bld Glucose 78 02/12/23 00:40: Bld Gas Analysis Time 0053, Sample Site RIGHT RADIAL, ABG pH 7.45, ABG pCO2 20 L*, ABG pO2 83, ABG HCO3 13.6 L, ABG Total CO2 14.2 L, ABG O2 Saturation 97, ABG Base Excess -8.3 L, Gonzales Test POSITIVE, Respiration Rate 14, O2 Delivery Device VENTILATOR, Vent Mode ASSIST/CONTROL, FiO2 30.00, Tidal Volume 400, PEEP 5 02/12/23 05:10: WBC 22.1 H, Corrected WBC 21.9 H, RBC 3.35 L, Hgb 10.6 L, Hct 32.1 L, MCV 95.8, MCH 31.6 H, MCHC 33.0, RDW 18.6 H, Plt Count 112 L, MPV 10.9 H, Neut # (Auto) Not Reportable, Lymph # (Auto) Not Reportable, Kimball # (Auto) Not Reportable, Eos # (Auto) Not Reportable, Baso # (Auto) Not Reportable, Absolute Nucleated RBC Not Reportable, Total Counted 100, Band Neuts % (Manual) 7, Abnorm Lymph % (Manual) 0, Metamyelocytes % 4 H, Myelocytes % 6 H, Nucleated RBC % Not Reportable, Neutrophils # (Manual) 14.2 H, Lymphocytes # (Manual) 5.0 H, Monocytes # (Manual) 0.4, Eosinophils # (Manual) 0.0, Basophils # (Manual) 0.0, Nucleated RBCs 18, Differential Comment MANUAL DIFFERENTIAL, WBC Morphology NORMAL APPEARANCE, Platelet Estimate DECREASED (<130,000), Platelet Morphology NORMAL APPEARANCE, RBC Morph Micro Appear 1+ POLYCHROMASIA 02/12/23 05:10: Sodium 134 L, Potassium 4.8, Chloride 108, Carbon Dioxide 16 L, Anion Gap 10.0, BUN 27 H, Creatinine 0.7, Estimated GFR (MDRD) 82 L, Glucose 88, Calcium 10.6 H, Phosphorus 2.2 L, Magnesium 2.0, Total Bilirubin 3.4 H, AST 1178 H, ALT 589 H, Alkaline Phosphatase 284 H, Total Protein 4.4 L, Albumin 1.9 L, Globulin 2.5, Albumin/Globulin Ratio 0.8 L 02/12/23 05:10: VBG pH 7.362, Ionized Calcium 1.31 02/12/23 05:10: Ammonia 53.4 H 02/12/23 05:10: Triglycerides 293 H 02/12/23 05:10: Lipase 367 H 02/12/23 05:15: Bld Gas Analysis Time 521, Sample Site RIGHT RADIAL, ABG pH 7.37, ABG pCO2 26 L, ABG pO2 88, ABG HCO3 14.3 L, ABG Total CO2 15.1 L, ABG O2 Saturation 96, ABG Base Excess -9.6 L, Gonzales Test POSITIVE, Respiration Rate 14, O2 Delivery Device VENTILATOR, Vent Mode ASSIST/CONTROL, FiO2 30.00, Tidal Volume 350, PEEP 5 02/12/23 09:11: Lactic Acid 6.4 H* 02/12/23 11:56: POC Whole Bld Glucose 74 02/12/23 12:41: PT 20.2 H, INR 1.9 H, Fibrinogen 213 L 02/12/23 12:43: POC Whole Bld Glucose 81 02/12/23 14:28: POC Whole Bld Glucose 131 H
[2023-02-12] MEDS ORDERED: ALBUMIN 25% 12.5 GM/50 ML VIAL IV STA (15:19)
[2023-02-12] MEDS ORDERED: CHLORHEXIDINE GLUCONATE 15 ML UDC PO SCH (15:22)
--- NOTE | 2023-02-12 15:38 | Discharge Plan ---
Discharge Plan Problem Reviewed?: Yes Disposition: 02 Transfer Acute Care Hosp No Smoking: If you smoke, Please STOP! Call for help. Follow-up with: Marilin Malhotra PA-C [Primary Care Provider] -
--- NOTE | 2023-02-12 15:39 | PROVIDER PROGRESS NOTE ---
Subjective - Subjective Pt reports feeling: Worse (The patient is now intubated and on IV sedatives) Objective - Vital Signs/Intake & Output Vital Signs: Vital Signs Temp Pulse Pulse Resp BP Pulse Ox 02/12/23 15:00 37.2 C 106 H 22 97/65 100 02/12/23 14:00 105 H 16 121/62 100 02/12/23 13:12 107 H 02/12/23 13:00 37.2 C 106 H 20 115/55 L 100 02/12/23 12:00 102 H 19 110/51 L 100 02/12/23 11:45 102 H 145/76 H 02/12/23 11:43 104 H 21 Intake & Output: Intake & Output 02/09/23 02/10/23 02/11/23 02/12/23 23:59 23:59 23:59 23:59 Intake Total 7285.000 4281.666 6520.001 3387.665 Output Total 1082 4110 564 8380 Balance 6203.000 3226.666 6011.001 1847.665 - Objective General Appearance: positive: Other (Sedated, on the vent) Eyes Bilateral: positive: No lid inflammation ENT: positive: Other (ET tube and OG tube in) Respiratory: positive: Rales (Rales and rhonchi right midlung field), Rhonchi Cardiovascular: positive: Tachycardia Abdomen: positive: Other (Mildly distended) Skin: positive: Warm, Dry, Pallor Extremities: positive: Other (2+ edema of legs to the thighs and 4+ edema of hands) Neurologic/Psychiatric: positive: Other (Sedated, on the vent) - Lab Results Fish Bones: 02/12/23 05:10 02/12/23 05:10 Other Labs: Lab Results x24hrs 02/12/23 02/12/23 02/12/23 Range/Units 14:28 12:43 12:41 WBC (4.8-10.8) x10^3/uL Corrected WBC (4.8-10.8) 10^3/uL RBC (4.20-5.40) 10^6/uL Hgb (12.0-16.0) g/dL Hct (37.0-47.0) % MCV (81.0-99.0) fL MCH (27.0-31.0) pg MCHC (32.0-36.0) g/dL RDW (12.0-15.0) % Plt Count (130-450) 10^3/uL MPV (7.9-10.8) fL Neut # (Auto) Lymph # (Auto) [place] # (Auto) Eos # (Auto) Baso # (Auto) Absolute Nucleated RBC Total Counted Band Neuts % (Manual) (0 - 10) % Abnorm Lymph % (Manual) % Metamyelocytes % ( - 0) % Myelocytes % ( - 0) % Nucleated RBC % Neutrophils # (Manual) (1.5-6.6) 10^3/uL Lymphocytes # (Manual) (1.5-3.5) 10^3/uL Monocytes # (Manual) (0.0-1.0) 10^3/uL Eosinophils # (Manual) (0-0.7) 10^3/uL Basophils # (Manual) (0-0.1) 10^3/uL Nucleated RBCs % Differential Comment WBC Morphology (NORMAL) Platelet Estimate (NORMAL) Platelet Morphology (NORMAL) RBC Morph Micro Appear (NORMAL) PT 20.2 H (9.9-12.6) secs INR 1.9 H (0.8-1.2) Fibrinogen 213 L (220-496) mg/dL Bld Gas Analysis Time Sample Site ABG pH (7.35-7.45) ABG pCO2 (34-45) mmHg ABG pO2 (80-100) mmHg ABG HCO3 (22.0-26.0) mmol/L ABG Total CO2 (21.0-29.0) MMOL/L ABG O2 Saturation (94-98) % ABG Base Excess (-2.0-3.0) mmol/L Gonzales Test VBG pH (7.31-7.41) VBG pCO2 (41-51) mmHg VBG pO2 (25-47) mmHg VBG HCO3 (23-28) mmol/L VBG Total CO2 (24-29) mmol/L VBG O2 Saturation (60-80) % VBG Base Excess (-2 - +2) mmol/L Ionized Calcium (1.15-1.33) mmol/L Respiration Rate b/min O2 Delivery Device Vent Mode FiO2 Tidal Volume mL PEEP cmH2O Sodium (135-145) mmol/L Potassium (3.5-5.0) mmol/L Chloride (101-111) mmol/L Carbon Dioxide (21-32) mmol/L Anion Gap (6-13) BUN (6-20) mg/dL Creatinine (0.4-1.0) mg/dL Estimated GFR (MDRD) (>89) Glucose (70-100) mg/dL POC Whole Bld Glucose 131 H 81 (70 - 100) mg/dL Lactic Acid (0.5-2.2) mmol/L Calcium (8.5-10.3) mg/dL Phosphorus (2.5-4.6) mg/dL Magnesium (1.7-2.8) mg/dL Total Bilirubin (0.2-1.0) mg/dL AST (10-42) IU/L ALT (10-60) IU/L Alkaline Phosphatase (42-121) IU/L Ammonia (7-35) umol/L Total Protein (6.7-8.2) g/dL Albumin (3.2-5.5) g/dL Globulin (2.1-4.2) g/dL Albumin/Globulin Ratio (1.0-2.2) Triglycerides ( - 149) mg/dL Lipase (22-51) U/L CSF Color (COLORLESS) CSF Clarity (CLEAR) Xanthrochromic (ABSENT) CSF WBC (0-5) /mm^3 CSF RBC (0-1) /mm^3 CSF Cell Count Tube # CSF Glucose (45-70) mg/dL CSF Total Protein (15-60) mg/dL 02/12/23 02/12/23 02/12/23 Range/Units 11:56 09:11 05:15 WBC (4.8-10.8) x10^3/uL Corrected WBC (4.8-10.8) 10^3/uL RBC (4.20-5.40) 10^6/uL Hgb (12.0-16.0) g/dL Hct (37.0-47.0) % MCV (81.0-99.0) fL MCH (27.0-31.0) pg MCHC (32.0-36.0) g/dL RDW (12.0-15.0) % Plt Count (130-450) 10^3/uL MPV (7.9-10.8) fL Neut # (Auto) Lymph # (Auto) [place] # (Auto) Eos # (Auto) Baso # (Auto) Absolute Nucleated RBC Total Counted Band Neuts % (Manual) (0 - 10) % Abnorm Lymph % (Manual) % Metamyelocytes % ( - 0) % Myelocytes % ( - 0) % Nucleated RBC % Neutrophils # (Manual) (1.5-6.6) 10^3/uL Lymphocytes # (Manual) (1.5-3.5) 10^3/uL Monocytes # (Manual) (0.0-1.0) 10^3/uL Eosinophils # (Manual) (0-0.7) 10^3/uL Basophils # (Manual) (0-0.1) 10^3/uL Nucleated RBCs % Differential Comment WBC Morphology (NORMAL) Platelet Estimate (NORMAL) Platelet Morphology (NORMAL) RBC Morph Micro Appear (NORMAL) PT (9.9-12.6) secs INR (0.8-1.2) Fibrinogen (220-496) mg/dL Bld Gas Analysis Time 0522 Sample Site RIGHT RADIAL ABG pH 7.37 (7.35-7.45) ABG pCO2 26 L (34-45) mmHg ABG pO2 88 (80-100) mmHg ABG HCO3 14.3 L (22.0-26.0) mmol/L ABG Total CO2 15.1 L (21.0-29.0) MMOL/L ABG O2 Saturation 96 (94-98) % ABG Base Excess -9.6 L (-2.0-3.0) mmol/L Gonzales Test POSITIVE VBG pH (7.31-7.41) VBG pCO2 (41-51) mmHg VBG pO2 (25-47) mmHg VBG HCO3 (23-28) mmol/L VBG Total CO2 (24-29) mmol/L VBG O2 Saturation (60-80) % VBG Base Excess (-2 - +2) mmol/L Ionized Calcium (1.15-1.33) mmol/L Respiration Rate 14 b/min O2 Delivery Device VENTILATOR Vent Mode ASSIST/CONTROL FiO2 30.00 Tidal Volume 350 mL PEEP 5 cmH2O Sodium (135-145) mmol/L Potassium (3.5-5.0) mmol/L Chloride (101-111) mmol/L Carbon Dioxide (21-32) mmol/L Anion Gap (6-13) BUN (6-20) mg/dL Creatinine (0.4-1.0) mg/dL Estimated GFR (MDRD) (>89) Glucose (70-100) mg/dL POC Whole Bld Glucose 74 (70 - 100) mg/dL Lactic Acid 6.4 H* (0.5-2.2) mmol/L Calcium (8.5-10.3) mg/dL Phosphorus (2.5-4.6) mg/dL Magnesium (1.7-2.8) mg/dL Total Bilirubin (0.2-1.0) mg/dL AST (10-42) IU/L ALT (10-60) IU/L Alkaline Phosphatase (42-121) IU/L Ammonia (7-35) umol/L Total Protein (6.7-8.2) g/dL Albumin (3.2-5.5) g/dL Globulin (2.1-4.2) g/dL Albumin/Globulin Ratio (1.0-2.2) Triglycerides ( - 149) mg/dL Lipase (22-51) U/L CSF Color (COLORLESS) CSF Clarity (CLEAR) Xanthrochromic (ABSENT) CSF WBC (0-5) /mm^3 CSF RBC (0-1) /mm^3 CSF Cell Count Tube # CSF Glucose (45-70) mg/dL CSF Total Protein (15-60) mg/dL 02/12/23 02/12/23 02/12/23 Range/Units 05:10 05:10 05:10 WBC (4.8-10.8) x10^3/uL Corrected WBC (4.8-10.8) 10^3/uL RBC (4.20-5.40) 10^6/uL Hgb (12.0-16.0) g/dL Hct (37.0-47.0) % MCV (81.0-99.0) fL MCH (27.0-31.0) pg MCHC (32.0-36.0) g/dL RDW (12.0-15.0) % Plt Count (130-450) 10^3/uL MPV (7.9-10.8) fL Neut # (Auto) Lymph # (Auto) [place] # (Auto) Eos # (Auto) Baso # (Auto) Absolute Nucleated RBC Total Counted Band Neuts % (Manual) (0 - 10) % Abnorm Lymph % (Manual) % Metamyelocytes % ( - 0) % Myelocytes % ( - 0) % Nucleated RBC % Neutrophils # (Manual) (1.5-6.6) 10^3/uL Lymphocytes # (Manual) (1.5-3.5) 10^3/uL Monocytes # (Manual) (0.0-1.0) 10^3/uL Eosinophils # (Manual) (0-0.7) 10^3/uL Basophils # (Manual) (0-0.1) 10^3/uL Nucleated RBCs % Differential Comment WBC Morphology (NORMAL) Platelet Estimate (NORMAL) Platelet Morphology (NORMAL) RBC Morph Micro Appear (NORMAL) PT (9.9-12.6) secs INR (0.8-1.2) Fibrinogen (220-496) mg/dL Bld Gas Analysis Time Sample Site ABG pH (7.35-7.45) ABG pCO2 (34-45) mmHg ABG pO2 (80-100) mmHg ABG HCO3 (22.0-26.0) mmol/L ABG Total CO2 (21.0-29.0) MMOL/L ABG O2 Saturation (94-98) % ABG Base Excess (-2.0-3.0) mmol/L Gonzales Test VBG pH (7.31-7.41) VBG pCO2 (41-51) mmHg VBG pO2 (25-47) mmHg VBG HCO3 (23-28) mmol/L VBG Total CO2 (24-29) mmol/L VBG O2 Saturation (60-80) % VBG Base Excess (-2 - +2) mmol/L Ionized Calcium (1.15-1.33) mmol/L Respiration Rate b/min O2 Delivery Device Vent Mode FiO2 Tidal Volume mL PEEP cmH2O Sodium (135-145) mmol/L Potassium (3.5-5.0) mmol/L Chloride (101-111) mmol/L Carbon Dioxide (21-32) mmol/L Anion Gap (6-13) BUN (6-20) mg/dL Creatinine (0.4-1.0) mg/dL Estimated GFR (MDRD) (>89) Glucose (70-100) mg/dL POC Whole Bld Glucose (70 - 100) mg/dL Lactic Acid (0.5-2.2) mmol/L Calcium (8.5-10.3) mg/dL Phosphorus (2.5-4.6) mg/dL Magnesium (1.7-2.8) mg/dL Total Bilirubin (0.2-1.0) mg/dL AST (10-42) IU/L ALT (10-60) IU/L Alkaline Phosphatase (42-121) IU/L Ammonia 53.4 H (7-35) umol/L Total Protein (6.7-8.2) g/dL Albumin (3.2-5.5) g/dL Globulin (2.1-4.2) g/dL Albumin/Globulin Ratio (1.0-2.2) Triglycerides 293 H ( - 149) mg/dL Lipase 367 H (22-51) U/L CSF Color (COLORLESS) CSF Clarity (CLEAR) Xanthrochromic (ABSENT) CSF WBC (0-5) /mm^3 CSF RBC (0-1) /mm^3 CSF Cell Count Tube # CSF Glucose (45-70) mg/dL CSF Total Protein (15-60) mg/dL 02/12/23 02/12/23 02/12/23 Range/Units 05:10 05:10 05:10 WBC 22.1 H (4.8-10.8) x10^3/uL Corrected WBC 21.9 H (4.8-10.8) 10^3/uL RBC 3.35 L (4.20-5.40) 10^6/uL Hgb 10.6 L (12.0-16.0) g/dL Hct 32.1 L (37.0-47.0) % MCV 95.8 (81.0-99.0) fL MCH 31.6 H (27.0-31.0) pg MCHC 33.0 (32.0-36.0) g/dL RDW 18.6 H (12.0-15.0) % Plt Count 112 L (130-450) 10^3/uL MPV 10.9 H (7.9-10.8) fL Neut # (Auto) Not Reportable Lymph # (Auto) Not Reportable [place] # (Auto) Not Reportable Eos # (Auto) Not Reportable Baso # (Auto) Not Reportable Absolute Nucleated RBC Not Reportable Total Counted 100 Band Neuts % (Manual) 7 (0 - 10) % Abnorm Lymph % (Manual) 0 % Metamyelocytes % 4 H ( - 0) % Myelocytes % 6 H ( - 0) % Nucleated RBC % Not Reportable Neutrophils # (Manual) 14.2 H (1.5-6.6) 10^3/uL Lymphocytes # (Manual) 5.0 H (1.5-3.5) 10^3/uL Monocytes # (Manual) 0.4 (0.0-1.0) 10^3/uL Eosinophils # (Manual) 0.0 (0-0.7) 10^3/uL Basophils # (Manual) 0.0 (0-0.1) 10^3/uL Nucleated RBCs 18 % Differential Comment MANUAL DIFFERENTIAL WBC Morphology NORMAL APPEARANCE (NORMAL) Platelet Estimate DECREASED (<130,000) (NORMAL) Platelet Morphology NORMAL APPEARANCE (NORMAL) RBC Morph Micro Appear 1+ POLYCHROMASIA (NORMAL) PT (9.9-12.6) secs INR (0.8-1.2) Fibrinogen (220-496) mg/dL Bld Gas Analysis Time Sample Site ABG pH (7.35-7.45) ABG pCO2 (34-45) mmHg ABG pO2 (80-100) mmHg ABG HCO3 (22.0-26.0) mmol/L ABG Total CO2 (21.0-29.0) MMOL/L ABG O2 Saturation (94-98) % ABG Base Excess (-2.0-3.0) mmol/L Gonzales Test VBG pH 7.362 (7.31-7.41) VBG pCO2 (41-51) mmHg VBG pO2 (25-47) mmHg VBG HCO3 (23-28) mmol/L VBG Total CO2 (24-29) mmol/L VBG O2 Saturation (60-80) % VBG Base Excess (-2 - +2) mmol/L Ionized Calcium 1.31 (1.15-1.33) mmol/L Respiration Rate b/min O2 Delivery Device Vent Mode FiO2 Tidal Volume mL PEEP cmH2O Sodium 134 L (135-145) mmol/L Potassium 4.8 (3.5-5.0) mmol/L Chloride 108 (101-111) mmol/L Carbon Dioxide 16 L (21-32) mmol/L Anion Gap 10.0 (6-13) BUN 27 H (6-20) mg/dL Creatinine 0.7 (0.4-1.0) mg/dL Estimated GFR (MDRD) 82 L (>89) Glucose 88 (70-100) mg/dL POC Whole Bld Glucose (70 - 100) mg/dL Lactic Acid (0.5-2.2) mmol/L Calcium 10.6 H (8.5-10.3) mg/dL Phosphorus 2.2 L (2.5-4.6) mg/dL Magnesium 2.0 (1.7-2.8) mg/dL Total Bilirubin 3.4 H (0.2-1.0) mg/dL AST 1178 H (10-42) IU/L ALT 589 H (10-60) IU/L Alkaline Phosphatase 284 H (42-121) IU/L Ammonia (7-35) umol/L Total Protein 4.4 L (6.7-8.2) g/dL Albumin 1.9 L (3.2-5.5) g/dL Globulin 2.5 (2.1-4.2) g/dL Albumin/Globulin Ratio 0.8 L (1.0-2.2) Triglycerides ( - 149) mg/dL Lipase (22-51) U/L CSF Color (COLORLESS) CSF Clarity (CLEAR) Xanthrochromic (ABSENT) CSF WBC (0-5) /mm^3 CSF RBC (0-1) /mm^3 CSF Cell Count Tube # CSF Glucose (45-70) mg/dL CSF Total Protein (15-60) mg/dL 02/12/23 02/12/23 02/11/23 Range/Units 00:40 00:15 19:36 WBC (4.8-10.8) x10^3/uL Corrected WBC (4.8-10.8) 10^3/uL RBC (4.20-5.40) 10^6/uL Hgb (12.0-16.0) g/dL Hct (37.0-47.0) % MCV (81.0-99.0) fL MCH (27.0-31.0) pg MCHC (32.0-36.0) g/dL RDW (12.0-15.0) % Plt Count (130-450) 10^3/uL MPV (7.9-10.8) fL Neut # (Auto) Lymph # (Auto) [place] # (Auto) Eos # (Auto) Baso # (Auto) Absolute Nucleated RBC Total Counted Band Neuts % (Manual) (0 - 10) % Abnorm Lymph % (Manual) % Metamyelocytes % ( - 0) % Myelocytes % ( - 0) % Nucleated RBC % Neutrophils # (Manual) (1.5-6.6) 10^3/uL Lymphocytes # (Manual) (1.5-3.5) 10^3/uL Monocytes # (Manual) (0.0-1.0) 10^3/uL Eosinophils # (Manual) (0-0.7) 10^3/uL Basophils # (Manual) (0-0.1) 10^3/uL Nucleated RBCs % Differential Comment WBC Morphology (NORMAL) Platelet Estimate (NORMAL) Platelet Morphology (NORMAL) RBC Morph Micro Appear (NORMAL) PT (9.9-12.6) secs INR (0.8-1.2) Fibrinogen 262 (220-496) mg/dL Bld Gas Analysis Time 0053 Sample Site RIGHT RADIAL ABG pH 7.45 (7.35-7.45) ABG pCO2 20 L* (34-45) mmHg ABG pO2 83 (80-100) mmHg ABG HCO3 13.6 L (22.0-26.0) mmol/L ABG Total CO2 14.2 L (21.0-29.0) MMOL/L ABG O2 Saturation 97 (94-98) % ABG Base Excess -8.3 L (-2.0-3.0) mmol/L Gonzales Test POSITIVE VBG pH (7.31-7.41) VBG pCO2 (41-51) mmHg VBG pO2 (25-47) mmHg VBG HCO3 (23-28) mmol/L VBG Total CO2 (24-29) mmol/L VBG O2 Saturation (60-80) % VBG Base Excess (-2 - +2) mmol/L Ionized Calcium (1.15-1.33) mmol/L Respiration Rate 14 b/min O2 Delivery Device VENTILATOR Vent Mode ASSIST/CONTROL FiO2 30.00 Tidal Volume 400 mL PEEP 5 cmH2O Sodium (135-145) mmol/L Potassium (3.5-5.0) mmol/L Chloride (101-111) mmol/L Carbon Dioxide (21-32) mmol/L Anion Gap (6-13) BUN (6-20) mg/dL Creatinine (0.4-1.0) mg/dL Estimated GFR (MDRD) (>89) Glucose (70-100) mg/dL POC Whole Bld Glucose 78 (70 - 100) mg/dL Lactic Acid (0.5-2.2) mmol/L Calcium (8.5-10.3) mg/dL Phosphorus (2.5-4.6) mg/dL Magnesium (1.7-2.8) mg/dL Total Bilirubin (0.2-1.0) mg/dL AST (10-42) IU/L ALT (10-60) IU/L Alkaline Phosphatase (42-121) IU/L Ammonia (7-35) umol/L Total Protein (6.7-8.2) g/dL Albumin (3.2-5.5) g/dL Globulin (2.1-4.2) g/dL Albumin/Globulin Ratio (1.0-2.2) Triglycerides ( - 149) mg/dL Lipase (22-51) U/L CSF Color (COLORLESS) CSF Clarity (CLEAR) Xanthrochromic (ABSENT) CSF WBC (0-5) /mm^3 CSF RBC (0-1) /mm^3 CSF Cell Count Tube # CSF Glucose (45-70) mg/dL CSF Total Protein (15-60) mg/dL 02/11/23 02/11/23 02/11/23 Range/Units 19:25 19:15 18:35 WBC (4.8-10.8) x10^3/uL Corrected WBC (4.8-10.8) 10^3/uL RBC (4.20-5.40) 10^6/uL Hgb (12.0-16.0) g/dL Hct (37.0-47.0) % MCV (81.0-99.0) fL MCH (27.0-31.0) pg MCHC (32.0-36.0) g/dL RDW (12.0-15.0) % Plt Count (130-450) 10^3/uL MPV (7.9-10.8) fL Neut # (Auto) Lymph # (Auto) [place] # (Auto) Eos # (Auto) Baso # (Auto) Absolute Nucleated RBC Total Counted Band Neuts % (Manual) (0 - 10) % Abnorm Lymph % (Manual) % Metamyelocytes % ( - 0) % Myelocytes % ( - 0) % Nucleated RBC % Neutrophils # (Manual) (1.5-6.6) 10^3/uL Lymphocytes # (Manual) (1.5-3.5) 10^3/uL Monocytes # (Manual) (0.0-1.0) 10^3/uL Eosinophils # (Manual) (0-0.7) 10^3/uL Basophils # (Manual) (0-0.1) 10^3/uL Nucleated RBCs % Differential Comment WBC Morphology (NORMAL) Platelet Estimate (NORMAL) Platelet Morphology (NORMAL) RBC Morph Micro Appear (NORMAL) PT (9.9-12.6) secs INR (0.8-1.2) Fibrinogen (220-496) mg/dL Bld Gas Analysis Time 19.33 Sample Site RIGHT RADIAL ABG pH 7.41 (7.35-7.45) ABG pCO2 20 L* (34-45) mmHg ABG pO2 74 L (80-100) mmHg ABG HCO3 12.5 L (22.0-26.0) mmol/L ABG Total CO2 13.1 L (21.0-29.0) MMOL/L ABG O2 Saturation 96 (94-98) % ABG Base Excess -9.9 L (-2.0-3.0) mmol/L Gonzales Test POSITIVE VBG pH 7.365 (7.31-7.41) VBG pCO2 29.1 L (41-51) mmHg VBG pO2 39.1 (25-47) mmHg VBG HCO3 16.3 L (23-28) mmol/L VBG Total CO2 17.2 L (24-29) mmol/L VBG O2 Saturation 75.0 (60-80) % VBG Base Excess -7.7 L (-2 - +2) mmol/L Ionized Calcium (1.15-1.33) mmol/L Respiration Rate b/min O2 Delivery Device Vent Mode FiO2 21.00 Tidal Volume mL PEEP cmH2O Sodium (135-145) mmol/L Potassium (3.5-5.0) mmol/L Chloride (101-111) mmol/L Carbon Dioxide (21-32) mmol/L Anion Gap (6-13) BUN (6-20) mg/dL Creatinine (0.4-1.0) mg/dL Estimated GFR (MDRD) (>89) Glucose (70-100) mg/dL POC Whole Bld Glucose (70 - 100) mg/dL Lactic Acid (0.5-2.2) mmol/L Calcium (8.5-10.3) mg/dL Phosphorus (2.5-4.6) mg/dL Magnesium (1.7-2.8) mg/dL Total Bilirubin (0.2-1.0) mg/dL AST (10-42) IU/L ALT (10-60) IU/L Alkaline Phosphatase (42-121) IU/L Ammonia (7-35) umol/L Total Protein (6.7-8.2) g/dL Albumin (3.2-5.5) g/dL Globulin (2.1-4.2) g/dL Albumin/Globulin Ratio (1.0-2.2) Triglycerides ( - 149) mg/dL Lipase (22-51) U/L CSF Color PINK (COLORLESS) CSF Clarity CLEAR (CLEAR) Xanthrochromic ABSENT (ABSENT) CSF WBC 0 (0-5) /mm^3 CSF RBC 1825 H (0-1) /mm^3 CSF Cell Count Tube # CSF TUBE# 3 CSF Glucose 58 (45-70) mg/dL CSF Total Protein 40 (15-60) mg/dL 02/11/23 02/11/23 02/11/23 Range/Units 18:35 17:17 16:44 WBC (4.8-10.8) x10^3/uL Corrected WBC (4.8-10.8) 10^3/uL RBC (4.20-5.40) 10^6/uL Hgb (12.0-16.0) g/dL Hct (37.0-47.0) % MCV (81.0-99.0) fL MCH (27.0-31.0) pg MCHC (32.0-36.0) g/dL RDW (12.0-15.0) % Plt Count (130-450) 10^3/uL MPV (7.9-10.8) fL Neut # (Auto) Lymph # (Auto) [place] # (Auto) Eos # (Auto) Baso # (Auto) Absolute Nucleated RBC Total Counted Band Neuts % (Manual) (0 - 10) % Abnorm Lymph % (Manual) % Metamyelocytes % ( - 0) % Myelocytes % ( - 0) % Nucleated RBC % Neutrophils # (Manual) (1.5-6.6) 10^3/uL Lymphocytes # (Manual) (1.5-3.5) 10^3/uL Monocytes # (Manual) (0.0-1.0) 10^3/uL Eosinophils # (Manual) (0-0.7) 10^3/uL Basophils # (Manual) (0-0.1) 10^3/uL Nucleated RBCs % Differential Comment WBC Morphology (NORMAL) Platelet Estimate (NORMAL) Platelet Morphology (NORMAL) RBC Morph Micro Appear (NORMAL) PT (9.9-12.6) secs INR (0.8-1.2) Fibrinogen (220-496) mg/dL Bld Gas Analysis Time Sample Site ABG pH (7.35-7.45) ABG pCO2 (34-45) mmHg ABG pO2 (80-100) mmHg ABG HCO3 (22.0-26.0) mmol/L ABG Total CO2 (21.0-29.0) MMOL/L ABG O2 Saturation (94-98) % ABG Base Excess (-2.0-3.0) mmol/L Gonzales Test VBG pH (7.31-7.41) VBG pCO2 (41-51) mmHg VBG pO2 (25-47) mmHg VBG HCO3 (23-28) mmol/L VBG Total CO2 (24-29) mmol/L VBG O2 Saturation (60-80) % VBG Base Excess (-2 - +2) mmol/L Ionized Calcium (1.15-1.33) mmol/L Respiration Rate b/min O2 Delivery Device Vent Mode FiO2 Tidal Volume mL PEEP cmH2O Sodium (135-145) mmol/L Potassium (3.5-5.0) mmol/L Chloride (101-111) mmol/L Carbon Dioxide (21-32) mmol/L Anion Gap (6-13) BUN (6-20) mg/dL Creatinine (0.4-1.0) mg/dL Estimated GFR (MDRD) (>89) Glucose (70-100) mg/dL POC Whole Bld Glucose 192 H 68 L (70 - 100) mg/dL Lactic Acid 5.7 H* (0.5-2.2) mmol/L Calcium (8.5-10.3) mg/dL Phosphorus (2.5-4.6) mg/dL Magnesium (1.7-2.8) mg/dL Total Bilirubin (0.2-1.0) mg/dL AST (10-42) IU/L ALT (10-60) IU/L Alkaline Phosphatase (42-121) IU/L Ammonia (7-35) umol/L Total Protein (6.7-8.2) g/dL Albumin (3.2-5.5) g/dL Globulin (2.1-4.2) g/dL Albumin/Globulin Ratio (1.0-2.2) Triglycerides ( - 149) mg/dL Lipase (22-51) U/L CSF Color (COLORLESS) CSF Clarity (CLEAR) Xanthrochromic (ABSENT) CSF WBC (0-5) /mm^3 CSF RBC (0-1) /mm^3 CSF Cell Count Tube # CSF Glucose (45-70) mg/dL CSF Total Protein (15-60) mg/dL Sepsis Event Note (H) - Evaluation Current Stage of Sepsis: Resolved Possible source of Sepsis: positive: Unknown - Sepsis Criteria Sepsis Criteria: Recorded Heart Rate greater than 90 bpm, Recorded Respiratory Rate greater than 20, Respiratory: Increasing oxygen requirements, Renal: urine output less than 0.5ml/kg/hr for 2 hours or creatinine gr Assessment/Plan - Problem List (1) Septic shock Impression: The patient required intubation last night, is in metabolic acidosis and septic shock. Lactic acid level remains elevated (all labs were reviewed). Her spinal tap was completed yesterday, cultures are pending. Blood cultures are negative to date Plan: Continue broad-spectrum IV antibiotics Continue IV pressors Continue gentle IV fluids We will give albumin since she has low oncotic pressure, to help the hypotension I will try to reach out to larger care centers to have her excepted, where specialists of ID, heme-onc and possibly hepatology are available. Today I spoke to her oncoogist Dr Ac at her bedside. I agrrees about her being transferred. Today I spoke to transfer man then the blueprint duplicator who accepted the patient but said there are no beds. I then spoke to the [facility] blueprint duplicator who accepted the patient and we will start working on having her transferred there. I have updated the at bedside and daughter at bed side. CRITICAL CARE TIME SPENT: 60 min (discussing case with Dr. Ac at bedside, adjusting meds including Levophed, discussing findings of Echo, ordering albumin, updating the blueprint duplicator at [facility], reordering meds and labs, updating the at bedside and daughter at bedside, completing COBRA forms). (2) Acute encephalopathy Impression: Acute encephalopathy was presumed to be secondary to infectious process and s epsis. She has been on empric iv antibx, but no (+) cultures have returned. Because of continued lactic acid elevation and encephalopathy, she had a spinal tap done by Anesthesia Since yesterday evening, she is now on IV sedatives because she is intubated on a vent Plan: Will cont iv calories and hydration Remain in ICU Cont Cefepime and Flagyl (3) CAP Imaging reports reviewed. The last chest x-ray done 02/09/2023 was read as having a RUL pneumonia and probably a mass associated with that (which would be her lung cancer). Very likely she has a post-obstructive ammonia. Plan: Continue with empiric IV cefepime and IV Flagyl Probiotics ordered, would now need to be given per NG (4) Wheezing This afternoon the RN informed me that the patient seems more uncomfortable because she is tachycardic and also respiratory rate increased to 25-27. On exam, the patient has bilateral rhonchi and expiratory wheezing as well Obtained chest x-ray [facility] showed fluid overload. We started Lasix and decreased iv rate Cont Xopenex scheduled QID Plan: Patient is now sedated on the vent (5) Lactic acid acidosis Assessment/Plan: Labs were all reviewed Markedly improving L.A. from 9 at admission to 3.7 yesterday. But the drop was slow and not typical of improvement when infection is treated. Plan: She is now in septic shock, her lactic acid clementine and I will be trying to get her transferred to a larger hospital (6) Transaminitis All labs were reviewed. Her AST's increased (322, 520, 2964, 1355, 953) and ALT also clementine (went from 116, 169, 850, 595, 575). The pattern suggest she might of had shock liver or hepatotoxin in the form of one of her meds may have caused this Plan: Will avoid hepatotoxins I am working on getting her transferred to a larger hospital, hopefully with a network designer (7) Hypoglycemia Patient is not a diabetic but she has had poor oral intake because of her lethargy. Dr. Ac and I discussed today that possibly this cancer is creating Liver insufficiency, it cannot perform gluconeogenesis Plan: Cont fingerstick glucose checks Continue IV fluids that contain D5 (8) Thrombocytopenia Patient had 2 episodes of epistaxis today. I reviewed labs. Yesterday her platelet count had dropped from normal to 105>> 111 yesterday>> 112 today. Fibrinogen was normal yesterday, it has dropped to 213 today. I am concerned that she is in DIC. This was discussed with Dr. Ac at bedside, either her infection or her cancer may be creating DIC Her lactic acid level has increased, consistent with septic shock Plan: Cont hold orders for the SQ BID Heparin, not to give unless platelets are over 130 (9) Type 2 ID Her troponins went from 87, 125, 146, 281. Then 2 days later it was 71 and a da y later (today) was 31. There is no Hx of CAD and was no c/o or visible CP at admission. The Echo was done and shows an underfilled LV with normal or hyperdynamic LV functionPlan: Because of the anasarca, we will not increase her IV fluids but will give albumin today (10) Lung cancer Qualifiers: Laterality: right Lung location: middle lobe of lung Qualified Code(s): C34.2 - Malignant neoplasm of middle lobe, bronchus or lung Assessment/Plan: Recently diagnosed small cell CA and will be initiating chemotherapy, once medically stable. She is followed by an oncologist from [facility] and is working with the cancer center here at [facility]. (11) Hypercalcemia Assessment/Plan: Improved significantly with IV fluid hydration
[2023-02-12 17:06] VITALS: BP 94/62
--- NOTE | 2023-02-12 18:39 | DISCHARGE SUMMARY ---
Discharge Summary Admit Date: 02/08/23 Discharge Date: 02/12/23 Discharging Provider: Dr Mandy Saunders Primary Care Provider: DANIEL Malhotra is PCP, Oncologist is Dr Bigg Albarran Code Status: Attempt Resuscitation Condition at Discharge: Critical Discharge Disposition: 02 Transfer Acute Care Hosp - [facility] History of Present Illness: Is a 72-year-old female who was recently diagnosed with small cell lung cancer. She has been seen at [facility] and is to be scheduled for initiation of chemotherapy. Over the past week she has had increasing problems with lethargy and not feeling well. She has been getting more confused recently over the past week. She did have a port placed about 4 days ago. But her symptoms antedated the placement of the port. This morning she was significantly weak obtunded would not appropriately able to answer questions or speak. notes at 1 point yesterday she felt and was sweaty as if she had a fever however he notes that her extremities were cold to the touch. Patient presented to the emergency room here at [facility] for further evaluation and treatment. Patient's evaluation in the emergency room included a temp of 36.5 axillary heart rate of 150 sinus tachycardia respiratory rate of 35 blood pressure of 109/86 with O2 sats at 98% unclear what supplementation she was getting at that point.Initial lab work revealed white count of 14.1 hemoglobin of 14.2 platelet count of 252. Sed rate of 14.1 INR 1.3. Blood glucose was 78. Sodium is 137 potassium 4.8 chloride 96 bicarb 19 anion gap 22 BUN 28 creatinine 1.1 with calculated GFR 49 lactic acid was 9.1 calcium 12.1 AST 380 ALT 160 alkaline phosphatase 532 total protein 7.4 albumin 3.2 ABG done in the emergency room with its not clear how much supplemental oxygen was at that time but pH was 7.43 PCO2 27.9 PO2 56.6 bicarb 18.2. Respiratory PCR was negative. - HOSPITAL COURSE Hospital Course: (1) Septic shock She was being treated for sepsis, possibly pneumonia is the primary however her lactic acid never really corrected. Then her BP worsened on 02/12 and she was started on Levophed drip. L.A.clementine even more and WBC clementine from 15, where it was plateaued the last few days, to 22. All her cultures remained neg. She even underwent a spinal tap on 02/11. With continued low platelets of 112 and fibrinogen level dropping, I was concerned she was in septic septic shock with DIC. Dr. Albarran and I discussed her and he wrote a note with impression that she is in shock septic shock with possible DIC from cancer and has shock liver and he agreed she needed to be transfered. She was accepted in transfer to [facility], on iv pressors and fluids, and on a vent, in critical condition. (2) UGI bleed Plan was to start this patient on OG tube feeds because of her persistent episodes of recurrent of hypoglycemia and for nutritional support. Prior to that the OG was ordered to wall suction since the CT abdomen had shown a distended stomach without gastric obstruction. The suction revealed she had coffee-ground emesis that turned dark red. This happened just before being transferred to [facility]. She was started Protonix IV twice daily (3) Thrombocytopenia Patient had 2 episodes of epistaxis. Her platelet count was normal at admission and started to drop, was 105>> 111>> 112. I put hold on the SQ BID Heparin unless platelets were over 130. Fibrinogen was normal on the day that platelets were 105, but the next day fibrinogen dropped slightly to 213. I suspected she was getting get DIC from sepsis. Her oncologist Dr. Albarran came to her bedside and we discussed this, and he thought she might be getting DIC from cancer (4) On mechanically assisted ventilation When she became tachycardic and tachypneic on 02/11, she was intubated. An OG tube was also put in. She remained on the ventilator in the ICU on supportive care, with IV propofol drip and IV fentanyl drip for sedation and pain control (5) CAP Imaging reports described a RUL pneumonia and probable mass associated with that (which would be her lung cancer). Very likely she had a post-obstructive ammonia. She was on empiric iv Vanco, IV cefepime and IV Flagyl (6) Anasarca On 02/11.her chest x-ray showed volume overload. She also developed anasarca of hands and feet, from the iv fluids she had received (7) Transaminitis Her AST's increased (322, 520, 2964, 1355, 953) and ALT also clementine (went from 116, 169, 850, 595, 575). Repeat CT abdomen/pelvis described a heterogenous liver and anasarca but no other acute findings. The LFT pattern suggested she may have had shock liver. I discussed this pattern with Dr. Albarran, when he was at the bedside and he agreed that it was probably shock liver (8) IHSS An Echo was ordered given the rise of troponins (see #10) and her hypotension, to rule out structural heart disease. The results showed that she has an underfilled LV, with hyperdynamic LV contractility producing IHSS, obstructing outflow which was also adding to her low blood pressure. We could not give more crystalloids because of the anasarca, IV albumin was ordered (9) Hypoglycemia Patient was not a diabetic but she has had poor oral intake because of her leth argy. Despite being on IV fluids with D5, she had 3 episodes with unexpectedly low glucoses of 60s to 70s. Dr. Albarran felt this was from liver dysfunction, not being able to perform gluconeogenesis. (10) Type 2 WA Her troponins went from 87, 125, 146, 281, then declined. There was no Hx of CAD or any c/o CP at admission. It was likely stress induced. (11) Lung cancer She had a recently diagnosed small cell CA and was to be initiating chemotherap y, once medically stable. - ALLERGIES Allergies/Adverse Reactions: Allergies Allergy/AdvReac Type Severity Reaction Status Date / Time bupropion [From Wellbutrin] Allergy Unknown Verified 02/08/23 09:56 citalopram [From Celexa] Allergy Unknown Verified 02/08/23 09:56 escitalopram [From Lexapro] Allergy Unknown Verified 02/08/23 09:56 estrogens, conjugated Allergy Unknown Verified 02/08/23 09:56 [From Premarin] quetiapine [From Seroquel] Allergy Unknown Verified 02/08/23 09:56 Sulfa (Sulfonamide Allergy Itching Verified 02/08/23 09:56 Antibiotics) tetracycline [Tetracycline] Allergy Respiratory Verified 02/08/23 09:56 - MEDICATIONS Home Medications: Ambulatory Orders Medication Instructions Recorded Confirmed Divalproex Sodium [Depakote] 250 mg PO DAILY 10/08/16 02/08/23 Venlafaxine HCl [Effexor Xr] 150 mg PO DAILY 10/08/16 02/08/23 ARIPiprazole [Abilify] 5 mg PO DAILY 12/21/22 02/08/23 Dextroamphetamine/Amphetamine 5 mg PO DAILY 12/21/22 02/08/23 [Dextroamp-Amphetamine 5 mg Tab] Estradiol [Vagifem] 10 mcg VG Q7D 12/21/22 02/08/23 Acetaminophen [Tylenol] 650 mg PO Q6H PRN 02/03/23 02/08/23 Aspirin [Aspirin EC] 81 mg PO DAILY 02/08/23 02/08/[address] [Depakote Dr] 500 mg PO QPM 02/08/23 02/08/23 Venlafaxine ER [Effexor ER] 75 mg PO QPM 02/08/23 02/08/23 - PHYSICAL EXAM AT DISCHARGE General Appearance: positive: Other (Sedated on the vent) Eyes Bilateral: positive: Other (Lid inflammation) Neck: positive: Nml inspection Respiratory: positive: Other (ET tube in place, on the vent) Cardiovascular: positive: Regular rate & rhythm, Systolic murmur Abdomen: positive: Other (Mildly distended) Skin: positive: Warm, Dry Extremities: positive: Other (3+ edema to the thighs, 4+ edema of the hands) Neurologic/Psychiatric: positive: Other (On IV sedative drips, on the vent) - LABS Result Diagrams: 02/12/23 05:10 02/12/23 05:10 - DIAGNOSTIC IMAGING Diagnostic Imaging Results: Final report reviewed - SEPSIS Current Stage of Sepsis: Resolved Possible source of Sepsis: Unknown Sepsis Criteria: Recorded Heart Rate greater than 90 bpm, Recorded Respiratory Rate greater than 20, Respiratory: Increasing oxygen requirements, Renal: urine output less than 0.5ml/kg/hr for 2 hours or creatinine gr - TIME SPENT Time Spent in Discharge (Minutes): 65
[2023-02-12] MEDS ORDERED: VALPROATE INJ 500 MG in SODIUM CHLORIDE 0.9% 100ML 100 ML IV SCH (21:00)
[2023-02-12] MEDS ORDERED: PANTOPRAZOLE 40 MG VIAL IV SCH (21:00)
== END 2023-02-12 18:25 | disposition short-term general hospital (02) | DRG 871 ==
LOC: ED 09:40 → ICU 12:59
PROVIDERS: ADMIT Specialist; ATTEND Internal Medicine
PROC: 5A1945Z Respiratory Ventilation, 24-96 Consecutive Hours (ICD-10-PCS; principal; 2023-02-11)
PROC: 0BH17EZ Insertion of Endotracheal Airway into Trachea, Via Natural or Artificial Opening (ICD-10-PCS; 2023-02-11)
PROC: 02HV33Z Insertion of Infusion Device into Superior Vena Cava, Percutaneous Approach (ICD-10-PCS; 2023-02-11)
PROC: 009U3ZX Drainage of Spinal Canal, Percutaneous Approach, Diagnostic (ICD-10-PCS; 2023-02-11)
DX: A41.9 Sepsis, unspecified organism (principal); D65 Disseminated intravascular coagulation [defibrination syndrome]; R40.1 Stupor; I47.1 Supraventricular tachycardia; D72.829 Elevated white blood cell count, unspecified; J18.9 Pneumonia, unspecified organism; R79.0 Abnormal level of blood mineral; Z20.822 Contact with and (suspected) exposure to COVID-19; R65.21 Severe sepsis with septic shock; K72.00 Acute and subacute hepatic failure without coma; I21.A1 Myocardial infarction type 2; C34.2 Malignant neoplasm of middle lobe, bronchus or lung; K92.0 Hematemesis; I42.1 Obstructive hypertrophic cardiomyopathy; G93.40 Encephalopathy, unspecified; R60.0 Localized edema; R74.01 Elevation of levels of liver transaminase levels; E16.2 Hypoglycemia, unspecified; E83.52 Hypercalcemia
CPT/HCPCS: 36415; 36600; 70450; 70460; 71045; 71260; 74177; 80053; 81001; 82140; 82330; 82803; 82945; 83605; 83690; 83735; 84100; 84132; 84157; 84478; 84484; 85025; 85384; 85610; 85651; 85730; 86140; 87040; 87070; 87086; 87150; 87205; 87633; 89051; 92610; 93005; 93306; 94002; 94003; 94640; 96365; 96366; 96368; 97110; 97163; 97167; 97535; 99233; 99285; A9270; J0131; J0330; J3010; J3370; J3490; J7120; P9047; Q9967; 80048; 81003; 94770